=== PATIENT | female | born 1950 | race Caucasian/White ===

== ENCOUNTER → 2017-07-28 15:07 | Outpatient (CLI) | payer OTHER, SELFPAY ==
--- NOTE | 2017-07-28 15:10 | DI.RAD.S_ITS ---
PROCEDURE: XR CERVICAL SPINE 2V OR 3V INDICATIONS: neck pain TECHNIQUE: 3 view(s) of the cervical spine were acquired. COMPARISON: None. FINDINGS: Bones: No fractures or dislocations to the C7 level. The lateral masses of C1 appear intact on the odontoid view. No suspicious bony lesions. Diffuse facet arthropathy. Grade 1 anterolisthesis of C4 on C5. Moderate narrowing of the C5-C6 and C6-C7 disc space. There is diffuse endplate spurring. Soft tissues: No prevertebral soft tissue swelling. IMPRESSION: Grade 1 anterolisthesis of C4 on C5. Moderate C5-C6 and C6-C7 disc degeneration. Diffuse facet arthropathy. Dictated by: Jerman Carrillo M.D. on 07/28/2017 at 16:20 Approved by: Jerman Carrillo M.D. on 07/28/2017 at 16:25
== END ==
PROVIDERS: Family Provider Internal Medicine; PCP Internal Medicine; Visit Provider Internal Medicine
DX: M43.12 Spondylolisthesis, cervical region (principal); M53.0 Cervicocranial syndrome; M47.812 Spondylosis without myelopathy or radiculopathy, cervical region
CPT/HCPCS: 72040

== ENCOUNTER → 2019-01-20 07:06 | Outpatient (CLI) | payer OTHER, SELFPAY ==
[2019-01-20 08:30] LABS: Free T4, Direct Thyroxine 1.21 ng/dL (0.78-2.19)
[2019-01-20 08:44] LABS: Thyroid Stimulating Hormone 0.93 uIU/mL (0.47-4.68)
== END ==
PROVIDERS: PCP Internal Medicine; Visit Provider Internal Medicine
DX: E03.9 Hypothyroidism, unspecified (principal)
CPT/HCPCS: 36415; 84439; 84443

== ENCOUNTER → 2020-01-06 07:39 | Outpatient (CLI) | payer OTHER, SELFPAY ==
[2020-01-06 08:49] LABS: Alanine Aminotransferase 20 IU/L (<35); Albumin 3.7 g/dL (3.5-5.0); Albumin Globulin Ratio 1.5 (1.0-2.8); Alkaline Phosphatase 45 U/L (38-126); Aspartate Aminotransferase 25 IU/L (14-36); BUN Creatinine Ratio 24.1 (6-22); Bilirubin Total 0.5 mg/dL (0.2-1.3); Blood Urea Nitrogen 19 mg/dL (7-17); Calcium 8.9 mg/dL (8.4-10.2); Carbon Dioxide 29 mmol/L (22-32); Chloride 107 mmol/L (98-107); Cholesterol 188 mg/dL (140-199); Estimated Glomerular Filt Rate > 60.0 mL/min (>60); Globulin 2.5 g/dL (1.7-4.1); Glucose 106 mg/dL (80-110); HDL Cholesterol 104 mg/dL (40-60); HEMOLYSIS < 15 (0-50); LDL Cholesterol Calculated 72 mg/dL (<100); Potassium 4.3 mmol/L (3.4-5.1); Sodium 136 mmol/L (137-145); Total Protein 6.2 g/dL (6.3-8.2); Triglycerides 61 mg/dL (35-150)
[2020-01-06 09:09] LABS: Free T4, Direct Thyroxine 1.27 ng/dL (0.78-2.19)
[2020-01-06 09:23] LABS: Thyroid Stimulating Hormone 0.362 uIU/mL (0.47-4.68)
== END ==
PROVIDERS: PCP Internal Medicine; Referring Provider Internal Medicine; Visit Provider Internal Medicine
DX: E03.9 Hypothyroidism, unspecified (principal); Z13.220 Encounter for screening for lipoid disorders; Z13.6 Encounter for screening for cardiovascular disorders
CPT/HCPCS: 36415; 80053; 80061; 84439; 84443

== ENCOUNTER 2020-06-08 08:15 | Outpatient (RCR) | payer MEDICARE, SELFPAY ==
--- NOTE | 2020-03-13 13:42 | PT.OIE ---
Current Diagnoses Unilateral primary osteoarthritis, right knee (03/13/20) Encounter for other orthopedic aftercare (03/13/20) Past Medical History (Last Updated 01/23/20 @ 14:24 by Antonio Sim MD) Acquired hypothyroidism Cervical cancer (~1989) Gastroparesis Primary osteoarthritis involving multiple joints Past Surgical History (Last Reviewed 07/28/17 @ 15:03 by Antonio Sim MD) Status post dilation and curettage Status post knee surgery Visit Care Team Role Provider Type Antonio Sim MD Primary Care Provider Physician Specialty: Internal Medicine Address: [address] [place] [address], [address], [address] Email: [email or web address] [place] Gama MD Attending Provider Non-Staff Referring Provider Specialty: Orthopedic Surgery Address: [address] [place] [address], [id number] Email: Physical Therapy Initial Evaluation PT-OP-A Visit Information Start: 03/08/20 14:41 Freq: Status: Active Protocol: Document 03/13/20 09:00 MB (Rec: 03/13/20 09:12 MB [id number]) Out-Patient Physical Therapy Visit Information Visit Information Visit Type Initial Evaluation [facility] Visit Start Time 09:00 Visit Stop Time 09:45 Total Visit Minutes 45 Visit Number 1 Evaluation Information Evaluation Date 03/13/20 PT-OP-B Current Condition Start: 03/08/20 14:41 Freq: Status: Active Protocol: Document 03/13/20 09:00 MB (Rec: 03/13/20 09:12 MB [id number]) Current Condition History of Current Condition Onset Date 03/07/20 Current Complaints Right knee pain and weakness History of Current Condition Pt is s/p right TKR 03/07/20. Pt has a history of B knee OA, left thumb arthritis, neck arthritis and back arthritis and injections in neck and back. Pt sees chiroprator 2x/ month and massage therapist 1x /month for her neck and back. She has also had work done on her TMJ. She has a thyroid issue. Pt is very active, rides horses and does agility with her dog. Pt reports 7-8/10 pain in her right knee, lateral and posterior leg. The greatest pain is in her groin. She is wearing compression. Prior Treatments and Tests R TKR, back and neck injections, PT in the past. She had a good experience with PT in the past. Treatment Goals Patient/Caregiver Goals I want to get back to riding and pickle ball. PT-OP-C Subjective Start: 03/08/20 14:41 Freq: Status: Active Protocol: Document 03/13/20 09:00 MB (Rec: 03/13/20 09:12 MB [id number]) OP-PT Subjective Patient Comments Patient Comments See history of current condition Patient Questionnaires Lower Extremity Functional Scale LEFS Score 4 LEFS Impairment 80 to 99% Impaired (Score 1-16 ) PT-OP-G Mobility & Gait Start: 03/08/20 14:41 Freq: Status: Active Protocol: Document 03/13/20 09:00 MB (Rec: 03/13/20 13:40 MB [id number]) OP Mobility Evaluation Bed Mobility Rolling Pt uses left leg to lift her right leg onto the mat with left toes and forefoot hooked around the back of right distal leg Transfers Sit to Stand Right leg out in front and heavy UE use OP Gait Assessment Gait Gait Assistance Required: Independent Distance (Feet) 75 Able to Maintain Weight Bearing Status Yes During Gait Assistive Devices Assistive Device Front Wheeled Walker Orthotic/Prosthetic Devices or Brace: Yes Gait Deviations General Gait Pattern Antalgic,Decreased Stride Length,Decreased Feet Clearance,Flexed Trunk Factors Limiting Gait Function Factors Limiting Gait Function Decreased Activity Tolerance, Decreased Strength,Limited Range of Motion,Pain Comments Gait Comments Pt's walker is too short for her upon arrival and PT raises it 2 and she is able to gait train better upright. Initially, she has antalgic gait with little heel strike, push off on toes and right knee flexion and hip flexion and extension on the RLE. After gentle manual work after assessment, pt's step-length, upright and heel strike is better. PT-OP-K Range of Motion Start: 03/08/20 14:41 Freq: Status: Active Protocol: Document 03/13/20 09:00 MB (Rec: 03/13/20 13:40 MB [id number]) Knee Goniometric Range of Motion Knee Left Knee ROM WFL Yes Right Knee ROM WFL No Patient Position Long sitting Flexion Active (degrees) 70 Extension Active (degrees) 8 PT-OP-M Strength Start: 03/08/20 14:41 Freq: Status: Active Protocol: Document 03/13/20 09:00 MB (Rec: 03/13/20 13:40 MB [id number]) Hip Strength Hip Manual Muscle Testing Left Flexion (L2) 5 Normal Abduction 5 Normal Right Comments Deferred hip and knee MMT d/t pt reports of high pain Knee Strength Knee Manual Muscle Testing Left Flexion (S2) 5 Normal Extension (L3) 5 Normal Right Comments MMT deferred d/t high pain at rest and with limited AROM Ankle/Foot Strength Ankle and Foot Manual Muscle Testing Left Dorsiflexion (L4) 5 Normal Inversion 5 Normal Eversion (S1) 5 Normal Right Dorsiflexion (L4) 5 Normal Inversion 5 Normal Eversion (S1) 5 Normal Toe Strength Toe Manual Muscle Testing Left Great Toe Extension 5 Normal Right Great Toe Extension 5 Normal PT-OP-Q Treatments Start: 03/08/20 14:41 Freq: Status: Active Protocol: Document 03/13/20 09:00 MB (Rec: 03/13/20 13:40 MB [id number]) Therapeutic Exercises Supine Exercises SAQ Side right Comments Pt cannot perform today, asked her to hold off SLR Side right Comments Pt cannot perform today, asked her to hold off AP, HS, GS, hip abduction and adduction Side right Reps/Minutes 5 Comments Pt uses gait belt to help with HS, long sitting Manual Therapy Treatment Other Other Manual Treatments Pt with compression hose on: very light lavage over anterior and posterior knee and then prolonged positional release of posterior knee near the distal and proximal muscles attachments and fascial tension of the area is much better after treatment and pt's gait is improved Self-Care/Home Management Treatment Education Other Education Decrease duration and repetition of exercises, focus on exercise quality, focus on gait pattern and quality with walking with good pattern being the biggest exercise priority, use of ice, hold off on SLR, SAQ, sitting knee flexion and extension dangles at this time d/t high pain and perform tolerance and performance of these right now PT-OP-T Assessment and Plan Start: 03/08/20 14:41 Freq: Status: Active Protocol: Document 03/13/20 09:00 MB (Rec: 03/13/20 13:40 MB [id number]) Physical Therapy Assessment Rehab Potential Rehabilitation Potential Excellent Evaluation Complexity Number of Personal Factors/Comorbidities 1-2 Number of Body Systems Impaired 1-2 Clinical Presentation at Evaluation Stable Impairments Impairments Activity Tolerance,Balance, Edema,Functional Activities, Functional Mobility,Gait, Integument,Pain,Posture,ROM, Soft Tissue Mobility,Strength, Transfers Other Impairments Pt denies paresthesias and she wears light thigh high compression hose today. She has post-op bandage right knee , no visible ecchymosis through the hose and standard post-op edema Goals 6 Halfway Goal (LTG) Pt will present with improved right knee AROM equal to the left to improve sit to stands and gait pattern by 05/11/2020. LTG Duration 8 weeks 5 Halfway Goal (LTG) Pt will perform at least 20 reps of sit to stands without UE support in 30 sec to reflect improved functional transfers and strength by 05/11. LTG Duration 8 weeks 4 Halfway Goal (LTG) Pt will perform progressive HEP with I including range of motion, strengthening, flexibility, balance and gait exercises to improve overall functional strength by 2020. LTG Duration 8 weeks 3 Collection Supervisor Goal (LTG) Pt will ascend and descend 3 steps with receiprocal gait and no AD or rail to allow safe home entrance and exit by 05/11/2020. LTG Duration 8 weeks 2 Collection Supervisor Goal (LTG) Pt will gait train at least 1500 feet without AD in 6 minutes to improve ambulation for pasture and farm tasks by 05/11/2020. LTG Duration 8 weeks 1 Collection Supervisor Goal (LTG) Pt will present with an improved LEF score to reflect no more than 20% impairment to prepare to return to horse and dog ownership tasks by 01/2021. LTG Duration 8 weeks Assessment Summary Assessment Pt is a 70 y/o female presenting with reports of 7/ 10 right LE pain, edema, antalgic gait, decreased right knee ROM and LE strength s/p right TKA 03/07/2020. Overall, her edema looks standard for post-op TKR and PT does not note any ecchymosis through white compression hose. Pt states that she is able to don the compression hose herself. She uses her left leg to assist with getting right leg on and off the mat and cannot perform SAQ or SLR today. Given pt reports that the post -op exercises have been taking her 2 hours a day and are causing a lot of pain up to 7- 8/10, PT encourages her to back off duration and repetition number of exercises , opting for form, slowness and quality. The goal is to decrease pain with exercises in order to more readily improve functional range and gait. Pt verbalizes understanding of this goal. PT feels that pt will progress well with PT post-op. Once again, will focus on gait quality with RW, progressive functional exercises, use of recumbent stepper and stationary bike to gain range with AAROM and work on quad strength. Pt will also benefit from further manual work to improve edema and fascial mobility. Her posterior right knee is much better and her gait is better after gentle fascial release after eval today. A barrier to PT may be pt's frustration and possible tendency to overdo exercises. Will con't to encourage pt. Physical Therapy Plan Frequency and Duration Frequency of Treatment 2x/Week Duration of Treatment 8 weeks Plan of Care Start Date 03/13/20 Plan of Care End Date 05/11/20 Therapeutic Interventions Therapeutic Interventions Balance Training,Canalithic Repositioning,Gait Training, Home Exercise Program,Joint Mobilizations,Manual Therapy, Neuromuscular Re-education, Patient/Caregiver Education, Self-Care/Home Management,Soft Tissue Mobilization,Taping, Therapeutic Activities, Therapeutic Exercises Modalities Cold Pack/Ice Massage,Electric Stimulation,Hot Packs, Ultrasound Next Visit Focus/Plan Next Note Type Treatment Note Next Visit Plan Initiate recumbent stepper and manual work without compression hose donned
--- NOTE | 2020-03-15 09:44 | PT.OTN ---
Current Diagnoses Unilateral primary osteoarthritis, right knee (03/15/20) Encounter for other orthopedic aftercare (03/15/20) Physical Therapy Treatment Note PT-OP-A Visit Information Start: 03/08/20 14:41 Freq: Status: Active Protocol: Document 03/15/20 09:03 MB (Rec: 03/15/20 09:22 MB [id number]) Out-Patient Physical Therapy Visit Information Visit Information Visit Type Treatment Note Visit Start Time 09:03 Visit Stop Time 09:45 Total Visit Minutes 42 Visit Number 2 PT-OP-B Current Condition Start: 03/08/20 14:41 Freq: Status: Active Protocol: Document 03/13/20 09:00 MB (Rec: 03/13/20 09:12 MB [id number]) Current Condition History of Current Condition Onset Date 03/07/20 Current Complaints Right knee pain and weakness History of Current Condition Pt is s/p right TKR 03/07/20. Pt has a history of B knee OA, left thumb arthritis, neck arthritis and back arthritis and injections in neck and back. Pt sees chiroprator 2x/ month and massage therapist 1x /month for her neck and back. She has also had work done on her TMJ. She has a thyroid issue. Pt is very active, rides horses and does agility with her dog. Pt reports 7-8/10 pain in her right knee, lateral and posterior leg. The greatest pain is in her groin. She is wearing compression. Prior Treatments and Tests R TKR, back and neck injections, PT in the past. She had a good experience with PT in the past. Treatment Goals Patient/Caregiver Goals I want to get back to riding and pickle ball. PT-OP-C Subjective Start: 03/08/20 14:41 Freq: Status: Active Protocol: Document 03/15/20 09:03 MB (Rec: 03/15/20 09:22 MB [id number]) OP-PT Subjective Patient Comments Patient Comments I walked a quarter of a mile straight through yesterday. I backed off the exercise repetitions and did 3x/wk. Pt has decreased her opiods, reports improved walking and swelling. PT-OP-G Mobility & Gait Start: 03/08/20 14:41 Freq: Status: Active Protocol: Document 03/13/20 09:00 MB (Rec: 03/13/20 13:40 MB [id number]) OP Mobility Evaluation Bed Mobility Rolling Pt uses left leg to lift her right leg onto the mat with left toes and forefoot hooked around the back of right distal leg Transfers Sit to Stand Right leg out in front and heavy UE use OP Gait Assessment Gait Gait Assistance Required: Independent Distance (Feet) 75 Able to Maintain Weight Bearing Status Yes During Gait Assistive Devices Assistive Device Front Wheeled Walker Orthotic/Prosthetic Devices or Brace: Yes Gait Deviations General Gait Pattern Antalgic,Decreased Stride Length,Decreased Feet Clearance,Flexed Trunk Factors Limiting Gait Function Factors Limiting Gait Function Decreased Activity Tolerance, Decreased Strength,Limited Range of Motion,Pain Comments Gait Comments Pt's walker is too short for her upon arrival and PT raises it 2 and she is able to gait train better upright. Initially, she has antalgic gait with little heel strike, push off on toes and right knee flexion and hip flexion and extension on the RLE. After gentle manual work after assessment, pt's step-length, upright and heel strike is better. PT-OP-K Range of Motion Start: 03/08/20 14:41 Freq: Status: Active Protocol: Document 03/13/20 09:00 MB (Rec: 03/13/20 13:40 MB [id number]) Knee Goniometric Range of Motion Knee Left Knee ROM WFL Yes Right Knee ROM WFL No Patient Position Long sitting Flexion Active (degrees) 70 Extension Active (degrees) 8 PT-OP-M Strength Start: 03/08/20 14:41 Freq: Status: Active Protocol: Document 03/13/20 09:00 MB (Rec: 03/13/20 13:40 MB [id number]) Hip Strength Hip Manual Muscle Testing Left Flexion (L2) 5 Normal Abduction 5 Normal Right Comments Deferred hip and knee MMT d/t pt reports of high pain Knee Strength Knee Manual Muscle Testing Left Flexion (S2) 5 Normal Extension (L3) 5 Normal Right Comments MMT deferred d/t high pain at rest and with limited AROM Ankle/Foot Strength Ankle and Foot Manual Muscle Testing Left Dorsiflexion (L4) 5 Normal Inversion 5 Normal Eversion (S1) 5 Normal Right Dorsiflexion (L4) 5 Normal Inversion 5 Normal Eversion (S1) 5 Normal Toe Strength Toe Manual Muscle Testing Left Great Toe Extension 5 Normal Right Great Toe Extension 5 Normal PT-OP-Q Treatments Start: 03/08/20 14:41 Freq: Status: Active Protocol: Document 03/15/20 09:03 MB (Rec: 03/15/20 09:22 MB [id number]) Cardio Equipment Recumbent Elliptical (Biodex) Duration (Minutes) 10 Resistance 2 Seat Position 10 Manual Therapy Treatment Other Other Manual Treatments Compression hose doffed: lavage and STM posterior distal leg to behind knee and anterior thigh--gastroc, soleus and quad STM PT-OP-T Assessment and Plan Start: 03/08/20 14:41 Freq: Status: Active Protocol: Document 03/15/20 09:03 MB (Rec: 03/15/20 09:22 MB [id number]) Physical Therapy Assessment Rehab Potential Rehabilitation Potential Excellent Evaluation Complexity Number of Personal Factors/Comorbidities 1-2 Number of Body Systems Impaired 1-2 Clinical Presentation at Evaluation Stable Impairments Impairments Activity Tolerance,Balance, Edema,Functional Activities, Functional Mobility,Gait, Integument,Pain,Posture,ROM, Soft Tissue Mobility,Strength, Transfers Other Impairments Pt denies paresthesias and she wears light thigh high compression hose today. She has post-op bandage right knee , no visible ecchymosis through the hose and standard post-op edema Goals 6 Senior Care Goal (LTG) Pt will present with improved right knee AROM equal to the left to improve sit to stands and gait pattern by 05/11/2020. LTG Duration 8 weeks 5 Trade Sales Assistant Goal (LTG) Pt will perform at least 20 reps of sit to stands without UE support in 30 sec to reflect improved functional transfers and strength by 05/11. LTG Duration 8 weeks 4 Trade Sales Assistant Goal (LTG) Pt will perform progressive HEP with I including range of motion, strengthening, flexibility, balance and gait exercises to improve overall functional strength by 2020. LTG Duration 8 weeks 3 Trade Sales Assistant Goal (LTG) Pt will ascend and descend 3 steps with receiprocal gait and no AD or rail to allow safe home entrance and exit by 05/11/2020. LTG Duration 8 weeks 2 Trade Sales Assistant Goal (LTG) Pt will gait train at least 1500 feet without AD in 6 minutes to improve ambulation for pasture and farm tasks by 05/11/2020. LTG Duration 8 weeks 1 Trade Sales Assistant Goal (LTG) Pt will present with an improved LEF score to reflect no more than 20% impairment to prepare to return to horse and dog ownership tasks by 01/2021. LTG Duration 8 weeks Assessment Summary Assessment Initiated recumbent stepper today and manual work and pt responds well. Ongoing encouragement that she is right on track with post-op mobility, focus on function. Physical Therapy Plan Frequency and Duration Frequency of Treatment 2x/Week Duration of Treatment 8 weeks Plan of Care Start Date 03/13/20 Plan of Care End Date 05/11/20 Therapeutic Interventions Therapeutic Interventions Balance Training,Canalithic Repositioning,Gait Training, Home Exercise Program,Joint Mobilizations,Manual Therapy, Neuromuscular Re-education, Patient/Caregiver Education, Self-Care/Home Management,Soft Tissue Mobilization,Taping, Therapeutic Activities, Therapeutic Exercises Modalities Cold Pack/Ice Massage,Electric Stimulation,Hot Packs, Ultrasound Next Visit Focus/Plan Next Note Type Treatment Note Next Visit Plan Reassess quad function with SAQ and assisted SLR, progress exercises and manual work
--- NOTE | 2020-03-20 14:29 | PT.OTN ---
Current Diagnoses Unilateral primary osteoarthritis, right knee (03/20/20) Encounter for other orthopedic aftercare (03/20/20) Physical Therapy Treatment Note PT-OP-A Visit Information Start: 03/08/20 14:41 Freq: Status: Active Protocol: Document 03/20/20 09:00 MB (Rec: 03/20/20 09:43 MB [id number]) Out-Patient Physical Therapy Visit Information Visit Information Visit Type Treatment Note Visit Start Time 09:00 Visit Stop Time 09:45 Total Visit Minutes 45 Visit Number 3 PT-OP-B Current Condition Start: 03/08/20 14:41 Freq: Status: Active Protocol: Document 03/13/20 09:00 MB (Rec: 03/13/20 09:12 MB [id number]) Current Condition History of Current Condition Onset Date 03/07/20 Current Complaints Right knee pain and weakness History of Current Condition Pt is s/p right TKR 03/07/20. Pt has a history of B knee OA, left thumb arthritis, neck arthritis and back arthritis and injections in neck and back. Pt sees chiroprator 2x/ month and massage therapist 1x /month for her neck and back. She has also had work done on her TMJ. She has a thyroid issue. Pt is very active, rides horses and does agility with her dog. Pt reports 7-8/10 pain in her right knee, lateral and posterior leg. The greatest pain is in her groin. She is wearing compression. Prior Treatments and Tests R TKR, back and neck injections, PT in the past. She had a good experience with PT in the past. Treatment Goals Patient/Caregiver Goals I want to get back to riding and pickle ball. PT-OP-C Subjective Start: 03/08/20 14:41 Freq: Status: Active Protocol: Document 03/20/20 09:00 MB (Rec: 03/20/20 09:43 MB [id number]) OP-PT Subjective Patient Comments Patient Comments I brought my cane in for you to set up. I get my malgorzata out Thursday and I am excited about that. Pt states that she has been doing some mini- marching and foot taps with her walker at home. PT-OP-G Mobility & Gait Start: 03/08/20 14:41 Freq: Status: Active Protocol: Document 03/13/20 09:00 MB (Rec: 03/13/20 13:40 MB [id number]) OP Mobility Evaluation Bed Mobility Rolling Pt uses left leg to lift her right leg onto the mat with left toes and forefoot hooked around the back of right distal leg Transfers Sit to Stand Right leg out in front and heavy UE use OP Gait Assessment Gait Gait Assistance Required: Independent Distance (Feet) 75 Able to Maintain Weight Bearing Status Yes During Gait Assistive Devices Assistive Device Front Wheeled Walker Orthotic/Prosthetic Devices or Brace: Yes Gait Deviations General Gait Pattern Antalgic,Decreased Stride Length,Decreased Feet Clearance,Flexed Trunk Factors Limiting Gait Function Factors Limiting Gait Function Decreased Activity Tolerance, Decreased Strength,Limited Range of Motion,Pain Comments Gait Comments Pt's walker is too short for her upon arrival and PT raises it 2 and she is able to gait train better upright. Initially, she has antalgic gait with little heel strike, push off on toes and right knee flexion and hip flexion and extension on the RLE. After gentle manual work after assessment, pt's step-length, upright and heel strike is better. PT-OP-K Range of Motion Start: 03/08/20 14:41 Freq: Status: Active Protocol: Document 03/13/20 09:00 MB (Rec: 03/13/20 13:40 MB [id number]) Knee Goniometric Range of Motion Knee Left Knee ROM WFL Yes Right Knee ROM WFL No Patient Position Long sitting Flexion Active (degrees) 70 Extension Active (degrees) 8 PT-OP-M Strength Start: 03/08/20 14:41 Freq: Status: Active Protocol: Document 03/13/20 09:00 MB (Rec: 03/13/20 13:40 MB [id number]) Hip Strength Hip Manual Muscle Testing Left Flexion (L2) 5 Normal Abduction 5 Normal Right Comments Deferred hip and knee MMT d/t pt reports of high pain Knee Strength Knee Manual Muscle Testing Left Flexion (S2) 5 Normal Extension (L3) 5 Normal Right Comments MMT deferred d/t high pain at rest and with limited AROM Ankle/Foot Strength Ankle and Foot Manual Muscle Testing Left Dorsiflexion (L4) 5 Normal Inversion 5 Normal Eversion (S1) 5 Normal Right Dorsiflexion (L4) 5 Normal Inversion 5 Normal Eversion (S1) 5 Normal Toe Strength Toe Manual Muscle Testing Left Great Toe Extension 5 Normal Right Great Toe Extension 5 Normal PT-OP-Q Treatments Start: 03/08/20 14:41 Freq: Status: Active Protocol: Document 03/20/20 09:00 MB (Rec: 03/20/20 09:43 MB [id number]) Cardio Equipment Recumbent Elliptical (Biodex) Duration (Minutes) 10 Resistance 2 Seat Position 10 Therapeutic Exercises Supine Exercises AP, HS, GS, hip abduction and adduction Supine Exercise Name AP and HS Comments Multiple 10 reps throughout treatment Standing Exercises Mini april Comments Pt states she has been doing at home, has limited knee flexion Gait Training Gait Activity Gait with different AD Comments 75' with RW and improved knee flexion and heel strike, 30' with SPC in left hand and less knee flexion; further gait with RW and pt's gait is better Manual Therapy Treatment Other Other Manual Treatments STM posterior right knee and hamstring, pt occ assisting with HS and PT also assisting with flexion--there is a palpable lump proximal gastroc area and calf is not warm Self-Care/Home Management Treatment Education Other Education Ask PA-C at follow-up about: driving, 90 deg bend comment in her paperwork, lump behind knee, pain management at night and seeing her massage therapist, ask about further compression hose. Ed pt to con 't to work on gait with RW at this time given poorer gait pattern with SPC. PT-OP-T Assessment and Plan Start: 03/08/20 14:41 Freq: Status: Active Protocol: Document 03/20/20 09:00 MB (Rec: 03/20/20 09:43 MB [id number]) Physical Therapy Assessment Rehab Potential Rehabilitation Potential Excellent Evaluation Complexity Number of Personal Factors/Comorbidities 1-2 Number of Body Systems Impaired 1-2 Clinical Presentation at Evaluation Stable Impairments Impairments Activity Tolerance,Balance, Edema,Functional Activities, Functional Mobility,Gait, Integument,Pain,Posture,ROM, Soft Tissue Mobility,Strength, Transfers Other Impairments Pt denies paresthesias and she wears light thigh high compression hose today. She has post-op bandage right knee , no visible ecchymosis through the hose and standard post-op edema Goals 6 Detention Goal (LTG) Pt will present with improved right knee AROM equal to the left to improve sit to stands and gait pattern by 05/11/2020. LTG Duration 8 weeks 5 [employer] Goal (LTG) Pt will perform at least 20 reps of sit to stands without UE support in 30 sec to reflect improved functional transfers and strength by 05/11. LTG Duration 8 weeks 4 Detention Goal (LTG) Pt will perform progressive HEP with I including range of motion, strengthening, flexibility, balance and gait exercises to improve overall functional strength by 2020. LTG Duration 8 weeks 3 [employer] Goal (LTG) Pt will ascend and descend 3 steps with receiprocal gait and no AD or rail to allow safe home entrance and exit by 05/11/2020. 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 LTG Duration 8 weeks 1 [employer] Goal (LTG) Pt will present with an improved LEF score to reflect no more than 20% impairment to prepare to return to horse and dog ownership tasks by 01/2021. LTG Duration 8 weeks Assessment Summary Assessment Pt con't to verbalize concern that she is not where she needs to be. PT con't to provide encouragement to pt. She has first follow-up with PA this week and PT and pt review questions to ask. She presents with lump area proximal gastroc right knee today and she does con't with edema. She might benefit from more compressive compression in the future. Con't manual work and exercise progression, continuing to focus on form and quality. Physical Therapy Plan Frequency and Duration Frequency of Treatment 2x/Week Duration of Treatment 8 weeks Plan of Care Start Date 03/13/20 Plan of Care End Date 05/11/20 Therapeutic Interventions Therapeutic Interventions Balance Training,Canalithic Repositioning,Gait Training, Home Exercise Program,Joint Mobilizations,Manual Therapy, Neuromuscular Re-education, Patient/Caregiver Education, Self-Care/Home Management,Soft Tissue Mobilization,Taping, Therapeutic Activities, Therapeutic Exercises Modalities Cold Pack/Ice Massage,Electric Stimulation,Hot Packs, Ultrasound Next Visit Focus/Plan Next Note Type Treatment Note Next Visit Plan Reassess quad function with SAQ and assisted SLR, progress exercises and manual work
--- NOTE | 2020-03-22 09:46 | PT.OTN ---
Current Diagnoses Unilateral primary osteoarthritis, right knee (03/22/20) Encounter for other orthopedic aftercare (03/22/20) Physical Therapy Treatment Note PT-OP-A Visit Information Start: 03/08/20 14:41 Freq: Status: Active Protocol: Document 03/22/20 09:01 MB (Rec: 03/22/20 09:17 MB [id number]) Out-Patient Physical Therapy Visit Information Visit Information Visit Type Treatment Note Visit Start Time 09:01 Visit Stop Time 09:45 Total Visit Minutes 44 Visit Number 4 PT-OP-B Current Condition Start: 03/08/20 14:41 Freq: Status: Active Protocol: Document 03/13/20 09:00 MB (Rec: 03/13/20 09:12 MB [id number]) Current Condition History of Current Condition Onset Date 03/07/20 Current Complaints Right knee pain and weakness History of Current Condition Pt is s/p right TKR 03/07/20. Pt has a history of B knee OA, left thumb arthritis, neck arthritis and back arthritis and injections in neck and back. Pt sees chiroprator 2x/ month and massage therapist 1x /month for her neck and back. She has also had work done on her TMJ. She has a thyroid issue. Pt is very active, rides horses and does agility with her dog. Pt reports 7-8/10 pain in her right knee, lateral and posterior leg. The greatest pain is in her groin. She is wearing compression. Prior Treatments and Tests R TKR, back and neck injections, PT in the past. She had a good experience with PT in the past. Treatment Goals Patient/Caregiver Goals I want to get back to riding and pickle ball. PT-OP-C Subjective Start: 03/08/20 14:41 Freq: Status: Active Protocol: Document 03/22/20 09:01 MB (Rec: 03/22/20 09:17 MB [id number]) OP-PT Subjective Patient Comments Patient Comments I haven't been sore. Pt states that she did well after last PT treatment. She states that things are getting easier. PT-OP-G Mobility & Gait Start: 03/08/20 14:41 Freq: Status: Active Protocol: Document 03/13/20 09:00 MB (Rec: 03/13/20 13:40 MB [id number]) OP Mobility Evaluation Bed Mobility Rolling Pt uses left leg to lift her right leg onto the mat with left toes and forefoot hooked around the back of right distal leg Transfers Sit to Stand Right leg out in front and heavy UE use OP Gait Assessment Gait Gait Assistance Required: Independent Distance (Feet) 75 Able to Maintain Weight Bearing Status Yes During Gait Assistive Devices Assistive Device Front Wheeled Walker Orthotic/Prosthetic Devices or Brace: Yes Gait Deviations General Gait Pattern Antalgic,Decreased Stride Length,Decreased Feet Clearance,Flexed Trunk Factors Limiting Gait Function Factors Limiting Gait Function Decreased Activity Tolerance, Decreased Strength,Limited Range of Motion,Pain Comments Gait Comments Pt's walker is too short for her upon arrival and PT raises it 2 and she is able to gait train better upright. Initially, she has antalgic gait with little heel strike, push off on toes and right knee flexion and hip flexion and extension on the RLE. After gentle manual work after assessment, pt's step-length, upright and heel strike is better. PT-OP-K Range of Motion Start: 03/08/20 14:41 Freq: Status: Active Protocol: Document 03/13/20 09:00 MB (Rec: 03/13/20 13:40 MB [id number]) Knee Goniometric Range of Motion Knee Left Knee ROM WFL Yes Right Knee ROM WFL No Patient Position Long sitting Flexion Active (degrees) 70 Extension Active (degrees) 8 PT-OP-M Strength Start: 03/08/20 14:41 Freq: Status: Active Protocol: Document 03/13/20 09:00 MB (Rec: 03/13/20 13:40 MB [id number]) Hip Strength Hip Manual Muscle Testing Left Flexion (L2) 5 Normal Abduction 5 Normal Right Comments Deferred hip and knee MMT d/t pt reports of high pain Knee Strength Knee Manual Muscle Testing Left Flexion (S2) 5 Normal Extension (L3) 5 Normal Right Comments MMT deferred d/t high pain at rest and with limited AROM Ankle/Foot Strength Ankle and Foot Manual Muscle Testing Left Dorsiflexion (L4) 5 Normal Inversion 5 Normal Eversion (S1) 5 Normal Right Dorsiflexion (L4) 5 Normal Inversion 5 Normal Eversion (S1) 5 Normal Toe Strength Toe Manual Muscle Testing Left Great Toe Extension 5 Normal Right Great Toe Extension 5 Normal PT-OP-Q Treatments Start: 03/08/20 14:41 Freq: Status: Active Protocol: Document 03/22/20 09:01 MB (Rec: 03/22/20 09:17 MB [id number]) Cardio Equipment Recumbent Elliptical (Biodex) Duration (Minutes) 10 Resistance 2 Seat Position 8 Therapeutic Exercises Supine Exercises SLR Side right Comments 10 reps slowly with assist and added to HEP AP, HS, GS, hip abduction and adduction Supine Exercise Name AP and HS Comments Multiple 10 reps throughout treatment Manual Therapy Treatment Other Other Manual Treatments STM posterior right knee and hamstring, pt occ assisting with HS and PT also assisting with flexion. Assisted SLR right leg PT-OP-T Assessment and Plan Start: 03/08/20 14:41 Freq: Status: Active Protocol: Document 03/22/20 09:01 MB (Rec: 03/22/20 09:17 MB [id number]) Physical Therapy Assessment Rehab Potential Rehabilitation Potential Excellent Evaluation Complexity Number of Personal Factors/Comorbidities 1-2 Number of Body Systems Impaired 1-2 Clinical Presentation at Evaluation Stable Impairments Impairments Activity Tolerance,Balance, Edema,Functional Activities, Functional Mobility,Gait, Integument,Pain,Posture,ROM, Soft Tissue Mobility,Strength, Transfers Other Impairments Pt denies paresthesias and she wears light thigh high compression hose today. She has post-op bandage right knee , no visible ecchymosis through the hose and standard post-op edema Goals 6 [employer] Person Goal (LTG) Pt will present with improved right knee AROM equal to the left to improve sit to stands and gait pattern by 05/11/2020. LTG Duration 8 weeks 5 Shelter Goal (LTG) Pt will perform at least 20 reps of sit to stands without UE support in 30 sec to reflect improved functional transfers and strength by 05/11. LTG Duration 8 weeks 4 Counter [employer] Person Goal (LTG) Pt will perform progressive HEP with I including range of motion, strengthening, flexibility, balance and gait exercises to improve overall functional strength by 2020. LTG Duration 8 weeks 3 Shelter Goal (LTG) Pt will ascend and descend 3 steps with receiprocal gait and no AD or rail to allow safe home entrance and exit by 05/11/2020. 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 LTG Duration 8 weeks 1 Counter [employer] Person Goal (LTG) Pt will present with an improved LEF score to reflect no more than 20% impairment to prepare to return to horse and dog ownership tasks by 01/2021. LTG Duration 8 weeks Assessment Summary Assessment Worked on HS and SLR today with assist and pt to work on SLR at home and provided HEP handout. She returns to surgeon office tomorrow and will have sutures out. Con't manual work and exercise progression, continuing to focus on form and quality. Physical Therapy Plan Frequency and Duration Frequency of Treatment 2x/Week Duration of Treatment 8 weeks Plan of Care Start Date 03/13/20 Plan of Care End Date 05/11/20 Therapeutic Interventions Therapeutic Interventions Balance Training,Canalithic Repositioning,Gait Training, Home Exercise Program,Joint Mobilizations,Manual Therapy, Neuromuscular Re-education, Patient/Caregiver Education, Self-Care/Home Management,Soft Tissue Mobilization,Taping, Therapeutic Activities, Therapeutic Exercises Modalities Cold Pack/Ice Massage,Electric Stimulation,Hot Packs, Ultrasound Next Visit Focus/Plan Next Note Type Treatment Note Next Visit Plan Progress exercises and manual work
--- NOTE | 2020-03-22 09:46 | PT.OTN ---
Current Diagnoses Unilateral primary osteoarthritis, right knee (03/22/20) Encounter for other orthopedic aftercare (03/22/20) Physical Therapy Treatment Note PT-OP-A Visit Information Start: 03/08/20 14:41 Freq: Status: Active Protocol: Document 03/22/20 09:01 MB (Rec: 03/22/20 09:17 MB [id number]) Out-Patient Physical Therapy Visit Information Visit Information Visit Type Treatment Note Visit Start Time 09:01 Visit Stop Time 09:45 Total Visit Minutes 44 Visit Number 4 PT-OP-B Current Condition Start: 03/08/20 14:41 Freq: Status: Active Protocol: Document 03/13/20 09:00 MB (Rec: 03/13/20 09:12 MB [id number]) Current Condition History of Current Condition Onset Date 03/07/20 Current Complaints Right knee pain and weakness History of Current Condition Pt is s/p right TKR 03/07/20. Pt has a history of B knee OA, left thumb arthritis, neck arthritis and back arthritis and injections in neck and back. Pt sees chiroprator 2x/ month and massage therapist 1x /month for her neck and back. She has also had work done on her TMJ. She has a thyroid issue. Pt is very active, rides horses and does agility with her dog. Pt reports 7-8/10 pain in her right knee, lateral and posterior leg. The greatest pain is in her groin. She is wearing compression. Prior Treatments and Tests R TKR, back and neck injections, PT in the past. She had a good experience with PT in the past. Treatment Goals Patient/Caregiver Goals I want to get back to riding and pickle ball. PT-OP-C Subjective Start: 03/08/20 14:41 Freq: Status: Active Protocol: Document 03/22/20 09:01 MB (Rec: 03/22/20 09:17 MB [id number]) OP-PT Subjective Patient Comments Patient Comments I haven't been sore. Pt states that she did well after last PT treatment. She states that things are getting easier. PT-OP-G Mobility & Gait Start: 03/08/20 14:41 Freq: Status: Active Protocol: Document 03/13/20 09:00 MB (Rec: 03/13/20 13:40 MB [id number]) OP Mobility Evaluation Bed Mobility Rolling Pt uses left leg to lift her right leg onto the mat with left toes and forefoot hooked around the back of right distal leg Transfers Sit to Stand Right leg out in front and heavy UE use OP Gait Assessment Gait Gait Assistance Required: Independent Distance (Feet) 75 Able to Maintain Weight Bearing Status Yes During Gait Assistive Devices Assistive Device Front Wheeled Walker Orthotic/Prosthetic Devices or Brace: Yes Gait Deviations General Gait Pattern Antalgic,Decreased Stride Length,Decreased Feet Clearance,Flexed Trunk Factors Limiting Gait Function Factors Limiting Gait Function Decreased Activity Tolerance, Decreased Strength,Limited Range of Motion,Pain Comments Gait Comments Pt's walker is too short for her upon arrival and PT raises it 2 and she is able to gait train better upright. Initially, she has antalgic gait with little heel strike, push off on toes and right knee flexion and hip flexion and extension on the RLE. After gentle manual work after assessment, pt's step-length, upright and heel strike is better. PT-OP-K Range of Motion Start: 03/08/20 14:41 Freq: Status: Active Protocol: Document 03/13/20 09:00 MB (Rec: 03/13/20 13:40 MB [id number]) Knee Goniometric Range of Motion Knee Left Knee ROM WFL Yes Right Knee ROM WFL No Patient Position Long sitting Flexion Active (degrees) 70 Extension Active (degrees) 8 PT-OP-M Strength Start: 03/08/20 14:41 Freq: Status: Active Protocol: Document 03/13/20 09:00 MB (Rec: 03/13/20 13:40 MB [id number]) Hip Strength Hip Manual Muscle Testing Left Flexion (L2) 5 Normal Abduction 5 Normal Right Comments Deferred hip and knee MMT d/t pt reports of high pain Knee Strength Knee Manual Muscle Testing Left Flexion (S2) 5 Normal Extension (L3) 5 Normal Right Comments MMT deferred d/t high pain at rest and with limited AROM Ankle/Foot Strength Ankle and Foot Manual Muscle Testing Left Dorsiflexion (L4) 5 Normal Inversion 5 Normal Eversion (S1) 5 Normal Right Dorsiflexion (L4) 5 Normal Inversion 5 Normal Eversion (S1) 5 Normal Toe Strength Toe Manual Muscle Testing Left Great Toe Extension 5 Normal Right Great Toe Extension 5 Normal PT-OP-Q Treatments Start: 03/08/20 14:41 Freq: Status: Active Protocol: Document 03/22/20 09:01 MB (Rec: 03/22/20 09:17 MB [id number]) Cardio Equipment Recumbent Elliptical (Biodex) Duration (Minutes) 10 Resistance 2 Seat Position 8 Therapeutic Exercises Supine Exercises SLR Side right Comments 10 reps slowly with assist and added to HEP AP, HS, GS, hip abduction and adduction Supine Exercise Name AP and HS Comments Multiple 10 reps throughout treatment Manual Therapy Treatment Other Other Manual Treatments STM posterior right knee and hamstring, pt occ assisting with HS and PT also assisting with flexion. Assisted SLR right leg PT-OP-T Assessment and Plan Start: 03/08/20 14:41 Freq: Status: Active Protocol: Document 03/22/20 09:01 MB (Rec: 03/22/20 09:17 MB [id number]) Physical Therapy Assessment Rehab Potential Rehabilitation Potential Excellent Evaluation Complexity Number of Personal Factors/Comorbidities 1-2 Number of Body Systems Impaired 1-2 Clinical Presentation at Evaluation Stable Impairments Impairments Activity Tolerance,Balance, Edema,Functional Activities, Functional Mobility,Gait, Integument,Pain,Posture,ROM, Soft Tissue Mobility,Strength, Transfers Other Impairments Pt denies paresthesias and she wears light thigh high compression hose today. She has post-op bandage right knee , no visible ecchymosis through the hose and standard post-op edema Goals 6 [employer] Goal (LTG) Pt will present with improved right knee AROM equal to the left to improve sit to stands and gait pattern by 05/11/2020. LTG Duration 8 weeks 5 Penitentiary Goal (LTG) Pt will perform at least 20 reps of sit to stands without UE support in 30 sec to reflect improved functional transfers and strength by 05/11. LTG Duration 8 weeks 4 [employer] Goal (LTG) Pt will perform progressive HEP with I including range of motion, strengthening, flexibility, balance and gait exercises to improve overall functional strength by 2020. LTG Duration 8 weeks 3 Penitentiary Goal (LTG) Pt will ascend and descend 3 steps with receiprocal gait and no AD or rail to allow safe home entrance and exit by 05/11/2020. 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 LTG Duration 8 weeks 1 [employer] Goal (LTG) Pt will present with an improved LEF score to reflect no more than 20% impairment to prepare to return to horse and dog ownership tasks by 01/2021. LTG Duration 8 weeks Assessment Summary Assessment Worked on HS and SLR today with assist and pt to work on SLR at home and provided HEP handout. She returns to surgeon office tomorrow and will have sutures out. Con't manual work and exercise progression, continuing to focus on form and quality. Physical Therapy Plan Frequency and Duration Frequency of Treatment 2x/Week Duration of Treatment 8 weeks Plan of Care Start Date 03/13/20 Plan of Care End Date 05/11/20 Therapeutic Interventions Therapeutic Interventions Balance Training,Canalithic Repositioning,Gait Training, Home Exercise Program,Joint Mobilizations,Manual Therapy, Neuromuscular Re-education, Patient/Caregiver Education, Self-Care/Home Management,Soft Tissue Mobilization,Taping, Therapeutic Activities, Therapeutic Exercises Modalities Cold Pack/Ice Massage,Electric Stimulation,Hot Packs, Ultrasound Next Visit Focus/Plan Next Note Type Treatment Note Next Visit Plan Progress exercises and manual work
--- NOTE | 2020-03-26 17:32 | PT.OTN ---
Current Diagnoses Unilateral primary osteoarthritis, right knee (03/26/20) Encounter for other orthopedic aftercare (03/26/20) Physical Therapy Treatment Note PT-OP-A Visit Information Start: 03/08/20 14:41 Freq: Status: Active Protocol: Document 03/26/20 13:29 [facility] (Rec: 03/26/20 17:32 [facility] [id number]) Out-Patient Physical Therapy Visit Information Visit Information Visit Type Treatment Note Visit Start Time 14:25 Visit Stop Time 15:10 Total Visit Minutes 45 Visit Number 5 Number of WELFARE MANAGER Visits 0 PT-OP-B Current Condition Start: 03/08/20 14:41 Freq: Status: Active Protocol: Document 03/13/20 09:00 MB (Rec: 03/13/20 09:12 MB [id number]) Current Condition History of Current Condition Onset Date 03/07/20 Current Complaints Right knee pain and weakness History of Current Condition Pt is s/p right TKR 03/07/20. Pt has a history of B knee OA, left thumb arthritis, neck arthritis and back arthritis and injections in neck and back. Pt sees chiroprator 2x/ month and massage therapist 1x /month for her neck and back. She has also had work done on her TMJ. She has a thyroid issue. Pt is very active, rides horses and does agility with her dog. Pt reports 7-8/10 pain in her right knee, lateral and posterior leg. The greatest pain is in her groin. She is wearing compression. Prior Treatments and Tests R TKR, back and neck injections, PT in the past. She had a good experience with PT in the past. Treatment Goals Patient/Caregiver Goals I want to get back to riding and pickle ball. PT-OP-C Subjective Start: 03/08/20 14:41 Freq: Status: Active Protocol: Document 03/26/20 13:29 [facility] (Rec: 03/26/20 17:32 [facility] [id number]) OP-PT Subjective Patient Comments Patient Comments Pt reports she had a bad night last night d/t MD scaring her and she kept her knee moving all day. She is taking oxy only w/PT sessions. Wound is looking good. Pt notes adductors feel like if she bends her knee further, it will rip. Pt reports ices and elevates leg all the time. PT-OP-G Mobility & Gait Start: 03/08/20 14:41 Freq: Status: Active Protocol: Document 03/13/20 09:00 MB (Rec: 03/13/20 13:40 MB [id number]) OP Mobility Evaluation Bed Mobility Rolling Pt uses left leg to lift her right leg onto the mat with left toes and forefoot hooked around the back of right distal leg Transfers Sit to Stand Right leg out in front and heavy UE use OP Gait Assessment Gait Gait Assistance Required: Independent Distance (Feet) 75 Able to Maintain Weight Bearing Status Yes During Gait Assistive Devices Assistive Device Front Wheeled Walker Orthotic/Prosthetic Devices or Brace: Yes Gait Deviations General Gait Pattern Antalgic,Decreased Stride Length,Decreased Feet Clearance,Flexed Trunk Factors Limiting Gait Function Factors Limiting Gait Function Decreased Activity Tolerance, Decreased Strength,Limited Range of Motion,Pain Comments Gait Comments Pt's walker is too short for her upon arrival and PT raises it 2 and she is able to gait train better upright. Initially, she has antalgic gait with little heel strike, push off on toes and right knee flexion and hip flexion and extension on the RLE. After gentle manual work after assessment, pt's step-length, upright and heel strike is better. PT-OP-K Range of Motion Start: 03/08/20 14:41 Freq: Status: Active Protocol: Document 03/13/20 09:00 MB (Rec: 03/13/20 13:40 MB [id number]) Knee Goniometric Range of Motion Knee Left Knee ROM WFL Yes Right Knee ROM WFL No Patient Position Long sitting Flexion Active (degrees) 70 Extension Active (degrees) 8 PT-OP-M Strength Start: 03/08/20 14:41 Freq: Status: Active Protocol: Document 03/13/20 09:00 MB (Rec: 03/13/20 13:40 MB [id number]) Hip Strength Hip Manual Muscle Testing Left Flexion (L2) 5 Normal Abduction 5 Normal Right Comments Deferred hip and knee MMT d/t pt reports of high pain Knee Strength Knee Manual Muscle Testing Left Flexion (S2) 5 Normal Extension (L3) 5 Normal Right Comments MMT deferred d/t high pain at rest and with limited AROM Ankle/Foot Strength Ankle and Foot Manual Muscle Testing Left Dorsiflexion (L4) 5 Normal Inversion 5 Normal Eversion (S1) 5 Normal Right Dorsiflexion (L4) 5 Normal Inversion 5 Normal Eversion (S1) 5 Normal Toe Strength Toe Manual Muscle Testing Left Great Toe Extension 5 Normal Right Great Toe Extension 5 Normal PT-OP-Q Treatments Start: 03/08/20 14:41 Freq: Status: Active Protocol: Document 03/26/20 13:29 [facility] (Rec: 03/26/20 17:32 [facility] [id number]) Cardio Equipment Recumbent Elliptical ([employer]) Duration (Minutes) 10 Resistance 2 Seat Position 8 Therapeutic Exercises Supine Exercises SAQ Side right Reps/Minutes 10 Sitting Exercises ext Sitting Exercise Name passive ext w/pillow under heel Side right Reps/Minutes 30 sec quad set Sitting Exercise Name long sit Side right Reps/Minutes 5 sec x8 Comments less pain in this positon vs supine flex Sitting Exercise Name slide on wood board Side right Reps/Minutes 5 sec x4 Standing Exercises heel raises Side bilateral Equipment Used at int Reps/Minutes 20 sit to stand Standing Exercise Name knee comfortably bent under her Side bilateral Reps/Minutes 5 Comments plint Manual Therapy Treatment Soft Tissue Mobilization HS/calf Mobilization Type Rolling Intensity/Depth Moderate Comments w/ APs in long sit and in HS stretched position Joint Mobilizations Patellofemoral Joint R Direction med, sup, inf Grade III Self-Care/Home Management Treatment Education Other Education discussed gradual inc in exercises at home and doing them in more comfortable positions (seated vs supine) PT-OP-T Assessment and Plan Start: 03/08/20 14:41 Freq: Status: Active Protocol: Document 03/26/20 13:29 [facility] (Rec: 03/26/20 17:32 [facility] [id number]) Physical Therapy Assessment Goals 6 Falsework Builder Goal (LTG) Pt will present with improved right knee AROM equal to the left to improve sit to stands and gait pattern by 05/11/2020. LTG Duration 8 weeks 5 Falsework Builder Goal (LTG) Pt will perform at least 20 reps of sit to stands without UE support in 30 sec to reflect improved functional transfers and strength by 05/11. LTG Duration 8 weeks 4 Falsework Builder Goal (LTG) Pt will perform progressive HEP with I including range of motion, strengthening, flexibility, balance and gait exercises to improve overall functional strength by 2020. LTG Duration 8 weeks 3 Falsework Builder Goal (LTG) Pt will ascend and descend 3 steps with receiprocal gait and no AD or rail to allow safe home entrance and exit by 05/11/2020. 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 LTG Duration 8 weeks 1 Half-Way Goal (LTG) Pt will present with an improved LEF score to reflect no more than 20% impairment to prepare to return to horse and dog ownership tasks by 01/2021. LTG Duration 8 weeks Assessment Summary Assessment Pt tolerated HS stretch position w/PT holding leg w/ STM. She was able to try some of the exercises from MD given exercises today with no inc pain after completing exercises. She does have pain duirng exercises but is does not stay painful. Physical Therapy Plan Frequency and Duration Frequency of Treatment 2x/Week Duration of Treatment 8 weeks Plan of Care Start Date 03/13/20 Plan of Care End Date 05/11/20 Next Visit Focus/Plan Next Note Type Treatment Note Next Visit Plan Progress exercises and manual work
--- NOTE | 2020-03-27 07:21 | PT-OP ANOTE ---
Pt emails PT to communicate that CHARLESAmina is concerned about her swelling and limited ROM and has asked pt to come back in in two weeks to consider closed manipulation. Pt asks about compression (more compressive compression hose). She asks to increase frequency to 3x/wk. PT communicates increased thigh high compression no greater than 20 mmHg and that scheduling 3x/wk is fine. Pt to see another PT in this clinic for an extra treatment this week and this therapist will update plan when next treating pt to increase frequency. Will con't to focus on ROM.
--- NOTE | 2020-03-27 09:45 | PT.OTN ---
Current Diagnoses Unilateral primary osteoarthritis, right knee (03/27/20) Encounter for other orthopedic aftercare (03/27/20) Physical Therapy Treatment Note PT-OP-A Visit Information Start: 03/08/20 14:41 Freq: Status: Active Protocol: Document 03/27/20 09:02 MB (Rec: 03/27/20 09:27 MB [id number]) Out-Patient Physical Therapy Visit Information Visit Information Visit Type Treatment Note Visit Note [facility] Medicare Advantage, unlimited Visit Start Time 09:02 Visit Stop Time 09:45 Total Visit Minutes 43 Visit Number 6 PT-OP-B Current Condition Start: 03/08/20 14:41 Freq: Status: Active Protocol: Document 03/13/20 09:00 MB (Rec: 03/13/20 09:12 MB [id number]) Current Condition History of Current Condition Onset Date 03/07/20 Current Complaints Right knee pain and weakness History of Current Condition Pt is s/p right TKR 03/07/20. Pt has a history of B knee OA, left thumb arthritis, neck arthritis and back arthritis and injections in neck and back. Pt sees chiroprator 2x/ month and massage therapist 1x /month for her neck and back. She has also had work done on her TMJ. She has a thyroid issue. Pt is very active, rides horses and does agility with her dog. Pt reports 7-8/10 pain in her right knee, lateral and posterior leg. The greatest pain is in her groin. She is wearing compression. Prior Treatments and Tests R TKR, back and neck injections, PT in the past. She had a good experience with PT in the past. Treatment Goals Patient/Caregiver Goals I want to get back to riding and pickle ball. PT-OP-C Subjective Start: 03/08/20 14:41 Freq: Status: Active Protocol: Document 03/27/20 09:02 MB (Rec: 03/27/20 09:27 MB [id number]) OP-PT Subjective Patient Comments Patient Comments I felt a little better last night and then I was worried a little more this morning. PT-OP-G Mobility & Gait Start: 03/08/20 14:41 Freq: Status: Active Protocol: Document 03/13/20 09:00 MB (Rec: 03/13/20 13:40 MB [id number]) OP Mobility Evaluation Bed Mobility Rolling Pt uses left leg to lift her right leg onto the mat with left toes and forefoot hooked around the back of right distal leg Transfers Sit to Stand Right leg out in front and heavy UE use OP Gait Assessment Gait Gait Assistance Required: Independent Distance (Feet) 75 Able to Maintain Weight Bearing Status Yes During Gait Assistive Devices Assistive Device Front Wheeled Walker Orthotic/Prosthetic Devices or Brace: Yes Gait Deviations General Gait Pattern Antalgic,Decreased Stride Length,Decreased Feet Clearance,Flexed Trunk Factors Limiting Gait Function Factors Limiting Gait Function Decreased Activity Tolerance, Decreased Strength,Limited Range of Motion,Pain Comments Gait Comments Pt's walker is too short for her upon arrival and PT raises it 2 and she is able to gait train better upright. Initially, she has antalgic gait with little heel strike, push off on toes and right knee flexion and hip flexion and extension on the RLE. After gentle manual work after assessment, pt's step-length, upright and heel strike is better. PT-OP-K Range of Motion Start: 03/08/20 14:41 Freq: Status: Active Protocol: Document 03/13/20 09:00 MB (Rec: 03/13/20 13:40 MB [id number]) Knee Goniometric Range of Motion Knee Left Knee ROM WFL Yes Right Knee ROM WFL No Patient Position Long sitting Flexion Active (degrees) 70 Extension Active (degrees) 8 PT-OP-M Strength Start: 03/08/20 14:41 Freq: Status: Active Protocol: Document 03/13/20 09:00 MB (Rec: 03/13/20 13:40 MB [id number]) Hip Strength Hip Manual Muscle Testing Left Flexion (L2) 5 Normal Abduction 5 Normal Right Comments Deferred hip and knee MMT d/t pt reports of high pain Knee Strength Knee Manual Muscle Testing Left Flexion (S2) 5 Normal Extension (L3) 5 Normal Right Comments MMT deferred d/t high pain at rest and with limited AROM Ankle/Foot Strength Ankle and Foot Manual Muscle Testing Left Dorsiflexion (L4) 5 Normal Inversion 5 Normal Eversion (S1) 5 Normal Right Dorsiflexion (L4) 5 Normal Inversion 5 Normal Eversion (S1) 5 Normal Toe Strength Toe Manual Muscle Testing Left Great Toe Extension 5 Normal Right Great Toe Extension 5 Normal PT-OP-Q Treatments Start: 03/08/20 14:41 Freq: Status: Active Protocol: Document 03/27/20 09:02 MB (Rec: 03/27/20 09:27 MB [id number]) Cardio Equipment Recumbent Elliptical ([employer]) Duration (Minutes) 10 Resistance 4 Seat Position 8 Therapeutic Exercises Standing Exercises Knee flexion on step Side left Comments 4 sets, 20 sec hold, practice ascend and descend with rails x3 with exercis heel raises Side bilateral Comments 20 reps Gait Training Gait Activity Gait without AD Comments 75'x1, 50'x3, 100'x1 with cane and then without AD, decreased heel strike and knee flexion right with gait, more noticeable without cane Manual Therapy Treatment Other Other Manual Treatments STM posterior right knee and hamstring, pt occ assisting with HS and PT also assisting with flexion. Assisted SLR right leg, pt with dressing doffed and steri strips only and so lavage over skin, keeping away from scar at this time PT-OP-T Assessment and Plan Start: 03/08/20 14:41 Freq: Status: Active Protocol: Document 03/27/20 09:02 MB (Rec: 03/27/20 09:27 MB [id number]) Physical Therapy Assessment Rehab Potential Rehabilitation Potential Good Evaluation Complexity Number of Personal Factors/Comorbidities 1-2 Number of Body Systems Impaired 1-2 Clinical Presentation at Evaluation Stable Impairments Impairments Activity Tolerance,Balance, Edema,Functional Activities, Functional Mobility,Gait, Integument,Pain,Posture,ROM, Soft Tissue Mobility,Strength, Transfers Other Impairments Pt denies paresthesias and she wears light thigh high compression hose today. She has post-op bandage right knee , no visible ecchymosis through the hose and standard post-op edema Goals 6 Assisted Goal (LTG) Pt will present with improved right knee AROM equal to the left to improve sit to stands and gait pattern by 05/11/2020. LTG Duration 8 weeks 5 Learning Technologist Goal (LTG) Pt will perform at least 20 reps of sit to stands without UE support in 30 sec to reflect improved functional transfers and strength by 05/11. LTG Duration 8 weeks 4 Assisted Goal (LTG) Pt will perform progressive HEP with I including range of motion, strengthening, flexibility, balance and gait exercises to improve overall functional strength by 2020. 03/27/20: For HEP: Pt is performing SLR, HS sitting, QS , AP, heel and toe raises, passive extension, SAQ LTG Duration 8 weeks 3 Assisted Goal (LTG) Pt will ascend and descend 3 steps with receiprocal gait and no AD or rail to allow safe home entrance and exit by 05/11/2020. 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 LTG Duration 8 weeks 1 Learning Technologist Goal (LTG) Pt will present with an improved LEF score to reflect no more than 20% impairment to prepare to return to horse and dog ownership tasks by 01/2021. LTG Duration 8 weeks Assessment Summary Assessment Pt is gait training without cane today and she presents with decreased right knee flexion and heel strike but gait is improved. AAROM knee flexion stretch over step improves from 78 deg flexion to 80 deg flexion today. Will increase PT frequency to 3x/wk . PT feels that swelling and discomfort has limited her range. She is improving with function, gait and range. Physical Therapy Plan Frequency and Duration Frequency of Treatment 3x/Week Duration of Treatment 8 weeks Plan of Care Start Date 03/13/20 Plan of Care End Date 05/11/20 Therapeutic Interventions Therapeutic Interventions Balance Training,Canalithic Repositioning,Gait Training, Home Exercise Program,Joint Mobilizations,Manual Therapy, Neuromuscular Re-education, Patient/Caregiver Education, Self-Care/Home Management,Soft Tissue Mobilization,Taping, Therapeutic Activities, Therapeutic Exercises Modalities Cold Pack/Ice Massage,Electric Stimulation,Hot Packs, Ultrasound Next Visit Focus/Plan Next Note Type Treatment Note Next Visit Plan Progress range exercises including hamstring stretch with AP and Alexander stretch and manual work
--- NOTE | 2020-03-27 09:45 | PT.OPPOC ---
Physical, Occupational & Speech Therapy At [facility] Current Diagnoses Unilateral primary osteoarthritis, right knee (03/27/20) Encounter for other orthopedic aftercare (03/27/20) Visit Care Team Role Provider Type Antonio Sim MD Primary Care Provider Physician Specialty: Internal Medicine Address: [address] [place] [address], [facility] [address], [address] Email: [email or web address] Gama MD Attending Provider Non-Staff Referring Provider Specialty: Orthopedic Surgery Address: [address] [place] [address], [id number] Email: Plan Of Care PT-OP-T Assessment and Plan Start: 03/08/20 14:41 Freq: Status: Active Protocol: Document 03/27/20 09:02 MB (Rec: 03/27/20 09:27 MB [id number]) Physical Therapy Assessment Rehab Potential Rehabilitation Potential Good Evaluation Complexity Number of Personal Factors/Comorbidities 1-2 Number of Body Systems Impaired 1-2 Clinical Presentation at Evaluation Stable Impairments Impairments Activity Tolerance,Balance, Edema,Functional Activities, Functional Mobility,Gait, Integument,Pain,Posture,ROM, Soft Tissue Mobility,Strength, Transfers Other Impairments Pt denies paresthesias and she wears light thigh high compression hose today. She has post-op bandage right knee , no visible ecchymosis through the hose and standard post-op edema Goals 6 Chcf Goal (LTG) Pt will present with improved right knee AROM equal to the left to improve sit to stands and gait pattern by 05/11/2020. LTG Duration 8 weeks 5 Dog Barber Goal (LTG) Pt will perform at least 20 reps of sit to stands without UE support in 30 sec to reflect improved functional transfers and strength by 05/11. LTG Duration 8 weeks 4 Dog Barber Goal (LTG) Pt will perform progressive HEP with I including range of motion, strengthening, flexibility, balance and gait exercises to improve overall functional strength by 2020. 03/27/20: For HEP: Pt is performing SLR, HS sitting, QS , AP, heel and toe raises, passive extension, SAQ LTG Duration 8 weeks 3 Chcf Goal (LTG) Pt will ascend and descend 3 steps with receiprocal gait and no AD or rail to allow safe home entrance and exit by 05/11/2020. 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 LTG Duration 8 weeks 1 Chcf Goal (LTG) Pt will present with an improved LEF score to reflect no more than 20% impairment to prepare to return to horse and dog ownership tasks by 01/2021. LTG Duration 8 weeks Assessment Summary Assessment Pt is gait training without cane today and she presents with decreased right knee flexion and heel strike but gait is improved. AAROM knee flexion stretch over step improves from 78 deg flexion to 80 deg flexion today. Will increase PT frequency to 3x/wk . PT feels that swelling and discomfort has limited her range. She is improving with function, gait and range. Physical Therapy Plan Frequency and Duration Frequency of Treatment 3x/Week Duration of Treatment 8 weeks Plan of Care Start Date 03/13/20 Plan of Care End Date 05/11/20 Therapeutic Interventions Therapeutic Interventions Balance Training,Canalithic Repositioning,Gait Training, Home Exercise Program,Joint Mobilizations,Manual Therapy, Neuromuscular Re-education, Patient/Caregiver Education, Self-Care/Home Management,Soft Tissue Mobilization,Taping, Therapeutic Activities, Therapeutic Exercises Modalities Cold Pack/Ice Massage,Electric Stimulation,Hot Packs, Ultrasound Next Visit Focus/Plan Next Note Type Treatment Note Next Visit Plan Progress range exercises including hamstring stretch with AP and Alexander stretch and manual work Plan of Care Dates Plan of Care Start Date 03/13/20 Plan of Care End Date 05/11/20 Electronically Signed by: Mariela Tavarez, PT 03/27/20 [id number] Please Sign and Return: I have reviewed this Plan of Care and certify that the skilled therapy services above are required to meet the patient?s needs. Physician Signature Date Printed Name and Credentials Clinical Instructor Signature Printed Name and Credentials
--- NOTE | 2020-03-29 09:51 | PT.OTN ---
Current Diagnoses Unilateral primary osteoarthritis, right knee (03/29/20) Encounter for other orthopedic aftercare (03/29/20) Physical Therapy Treatment Note PT-OP-A Visit Information Start: 03/08/20 14:41 Freq: Status: Active Protocol: Document 03/29/20 09:01 MB (Rec: 03/29/20 09:37 MB [id number]) Out-Patient Physical Therapy Visit Information Visit Information Visit Type Treatment Note Visit Note [facility] Medicare Advantage, unlimited Visit Start Time 09:01 Visit Stop Time 09:45 Total Visit Minutes 44 Visit Number 7 PT-OP-B Current Condition Start: 03/08/20 14:41 Freq: Status: Active Protocol: Document 03/13/20 09:00 MB (Rec: 03/13/20 09:12 MB [id number]) Current Condition History of Current Condition Onset Date 03/07/20 Current Complaints Right knee pain and weakness History of Current Condition Pt is s/p right TKR 03/07/20. Pt has a history of B knee OA, left thumb arthritis, neck arthritis and back arthritis and injections in neck and back. Pt sees chiroprator 2x/ month and massage therapist 1x /month for her neck and back. She has also had work done on her TMJ. She has a thyroid issue. Pt is very active, rides horses and does agility with her dog. Pt reports 7-8/10 pain in her right knee, lateral and posterior leg. The greatest pain is in her groin. She is wearing compression. Prior Treatments and Tests R TKR, back and neck injections, PT in the past. She had a good experience with PT in the past. Treatment Goals Patient/Caregiver Goals I want to get back to riding and pickle ball. PT-OP-C Subjective Start: 03/08/20 14:41 Freq: Status: Active Protocol: Document 03/29/20 09:01 MB (Rec: 03/29/20 09:37 MB [id number]) OP-PT Subjective Patient Comments Patient Comments Pt got 15 mmHg compression hose. They do not have feet. They are hard to put on. She went to her chiropractor and his massage therapist yesterday. He use a small device to gently manipulate the outside of his knee. She states that it hurt really badly. He was able to flex the knee to 90 deg on her back and she felt good after treatment. She had to tell the massage therapist to stop with treatment d/t pain and then she had a lot of pain later in the day. She felt good and slept well after last PT treatment. PT-OP-G Mobility & Gait Start: 03/08/20 14:41 Freq: Status: Active Protocol: Document 03/13/20 09:00 MB (Rec: 03/13/20 13:40 MB [id number]) OP Mobility Evaluation Bed Mobility Rolling Pt uses left leg to lift her right leg onto the mat with left toes and forefoot hooked around the back of right distal leg Transfers Sit to Stand Right leg out in front and heavy UE use OP Gait Assessment Gait Gait Assistance Required: Independent Distance (Feet) 75 Able to Maintain Weight Bearing Status Yes During Gait Assistive Devices Assistive Device Front Wheeled Walker Orthotic/Prosthetic Devices or Brace: Yes Gait Deviations General Gait Pattern Antalgic,Decreased Stride Length,Decreased Feet Clearance,Flexed Trunk Factors Limiting Gait Function Factors Limiting Gait Function Decreased Activity Tolerance, Decreased Strength,Limited Range of Motion,Pain Comments Gait Comments Pt's walker is too short for her upon arrival and PT raises it 2 and she is able to gait train better upright. Initially, she has antalgic gait with little heel strike, push off on toes and right knee flexion and hip flexion and extension on the RLE. After gentle manual work after assessment, pt's step-length, upright and heel strike is better. PT-OP-K Range of Motion Start: 03/08/20 14:41 Freq: Status: Active Protocol: Document 03/13/20 09:00 MB (Rec: 03/13/20 13:40 MB [id number]) Knee Goniometric Range of Motion Knee Left Knee ROM WFL Yes Right Knee ROM WFL No Patient Position Long sitting Flexion Active (degrees) 70 Extension Active (degrees) 8 PT-OP-M Strength Start: 03/08/20 14:41 Freq: Status: Active Protocol: Document 03/13/20 09:00 MB (Rec: 03/13/20 13:40 MB [id number]) Hip Strength Hip Manual Muscle Testing Left Flexion (L2) 5 Normal Abduction 5 Normal Right Comments Deferred hip and knee MMT d/t pt reports of high pain Knee Strength Knee Manual Muscle Testing Left Flexion (S2) 5 Normal Extension (L3) 5 Normal Right Comments MMT deferred d/t high pain at rest and with limited AROM Ankle/Foot Strength Ankle and Foot Manual Muscle Testing Left Dorsiflexion (L4) 5 Normal Inversion 5 Normal Eversion (S1) 5 Normal Right Dorsiflexion (L4) 5 Normal Inversion 5 Normal Eversion (S1) 5 Normal Toe Strength Toe Manual Muscle Testing Left Great Toe Extension 5 Normal Right Great Toe Extension 5 Normal PT-OP-Q Treatments Start: 03/08/20 14:41 Freq: Status: Active Protocol: Document 03/29/20 09:01 MB (Rec: 03/29/20 09:37 MB [id number]) Cardio Equipment Recumbent Elliptical (Meal Ticket) Duration (Minutes) 17 Resistance 4 Seat Position 8 Therapeutic Exercises Supine Exercises Hamstring and AP with martial art belt Comments Right leg Alexander stretch Comments Right leg, AP, HS and GS with position, abdominal drawing in Manual Therapy Treatment Other Other Manual Treatments STM posterior right knee and hamstring, AAROM with lavage PT-OP-T Assessment and Plan Start: 03/08/20 14:41 Freq: Status: Active Protocol: Document 03/29/20 09:01 MB (Rec: 03/29/20 09:37 MB [id number]) Physical Therapy Assessment Rehab Potential Rehabilitation Potential Good Evaluation Complexity Number of Personal Factors/Comorbidities 1-2 Number of Body Systems Impaired 1-2 Clinical Presentation at Evaluation Stable Impairments Impairments Activity Tolerance,Balance, Edema,Functional Activities, Functional Mobility,Gait, Integument,Pain,Posture,ROM, Soft Tissue Mobility,Strength, Transfers Other Impairments Pt denies paresthesias and she wears light thigh high compression hose today. She has post-op bandage right knee , no visible ecchymosis through the hose and standard post-op edema Goals 6 Jail Goal (LTG) Pt will present with improved right knee AROM equal to the left to improve sit to stands and gait pattern by 05/11/2020. LTG Duration 8 weeks 5 Delivery Recruiter Goal (LTG) Pt will perform at least 20 reps of sit to stands without UE support in 30 sec to reflect improved functional transfers and strength by 05/11. LTG Duration 8 weeks 4 Delivery Recruiter Goal (LTG) Pt will perform progressive HEP with I including range of motion, strengthening, flexibility, balance and gait exercises to improve overall functional strength by 2020. 03/29/20: For HEP: focus on knee flexion in sitting, stretching on the stairs and stair and gait training (rail on steps and cane left hand for gait practice) LTG Duration 8 weeks 3 Delivery Recruiter Goal (LTG) Pt will ascend and descend 3 steps with receiprocal gait and no AD or rail to allow safe home entrance and exit by 05/11/2020. 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 LTG Duration 8 weeks 1 Jail Goal (LTG) Pt will present with an improved LEF score to reflect no more than 20% impairment to prepare to return to horse and dog ownership tasks by 01/2021. LTG Duration 8 weeks Progress Towards Goals Progress Towards Goals Progressing Toward Goals Progress Comments AROM right knee flexion in sitting to 84 deg today Assessment Summary Assessment Pt saw chiropractor and his massage therapist and while he was able to flex her right knee more, she had more tightness in the inside of right knee and pain after treatment. The swelling con't to be a problem. Once again, pt responds well to lavage and AAROM with PT and presents with improved functional range , gait and edema after PT treatments and she reports that she is sleeping better after PT. PT feels that edema with interventions can exacerbate and give cycle of decreased range tolerance with ADLs, exercise and gait. Con' t to encourage work on gait quality with SPC in left hand. Her active right knee flexion sliding right heel in sitting gets to 84 deg today. Pt is progressing with right knee range. Pt does have some redness and warmth in knee today. PT is concerned about chiropractor treatment and PT communicates this with pt. Physical Therapy Plan Frequency and Duration Frequency of Treatment 3x/Week Duration of Treatment 8 weeks Plan of Care Start Date 03/13/20 Plan of Care End Date 05/11/20 Therapeutic Interventions Therapeutic Interventions Balance Training,Canalithic Repositioning,Gait Training, Home Exercise Program,Joint Mobilizations,Manual Therapy, Neuromuscular Re-education, Patient/Caregiver Education, Self-Care/Home Management,Soft Tissue Mobilization,Taping, Therapeutic Activities, Therapeutic Exercises Modalities Cold Pack/Ice Massage,Electric Stimulation,Hot Packs, Ultrasound Next Visit Focus/Plan Next Note Type Treatment Note Next Visit Plan Try recumbent or upright bike next treatment and discuss if pt should go to gym to do the bike to help with flexion. Con 't manual work--MWM and lavage with pt assisting with HS and APs and SLR.
--- NOTE | 2020-04-02 11:26 | PT.OTN ---
Current Diagnoses Unilateral primary osteoarthritis, right knee (04/02/20) Encounter for other orthopedic aftercare (04/02/20) Physical Therapy Treatment Note PT-OP-A Visit Information Start: 03/08/20 14:41 Freq: Status: Active Protocol: Document 04/02/20 10:36 SP (Rec: 04/02/20 12:03 SP [id number]) Out-Patient Physical Therapy Visit Information Visit Information Visit Type Treatment Note Visit Note [facility] Medicare Advantage, unlimited Visit Start Time 10:36 Visit Stop Time 11:26 Total Visit Minutes 50 Visit Number 7 Number of SMALL PRODUCTS I ASSEMBLER Visits 1 PT-OP-B Current Condition Start: 03/08/20 14:41 Freq: Status: Active Protocol: Document 03/13/20 09:00 MB (Rec: 03/13/20 09:12 MB [id number]) Current Condition History of Current Condition Onset Date 03/07/20 Current Complaints Right knee pain and weakness History of Current Condition Pt is s/p right TKR 03/07/20. Pt has a history of B knee OA, left thumb arthritis, neck arthritis and back arthritis and injections in neck and back. Pt sees chiroprator 2x/ month and massage therapist 1x /month for her neck and back. She has also had work done on her TMJ. She has a thyroid issue. Pt is very active, rides horses and does agility with her dog. Pt reports 7-8/10 pain in her right knee, lateral and posterior leg. The greatest pain is in her groin. She is wearing compression. Prior Treatments and Tests R TKR, back and neck injections, PT in the past. She had a good experience with PT in the past. Treatment Goals Patient/Caregiver Goals I want to get back to riding and pickle ball. PT-OP-C Subjective Start: 03/08/20 14:41 Freq: Status: Active Protocol: Document 04/02/20 10:36 SP (Rec: 04/02/20 12:03 SP [id number]) OP-PT Subjective Patient Comments Patient Comments Pt reported compliant with HEP 2x/ day, 14 ex total with 20- 50 reps. PT-OP-G Mobility & Gait Start: 03/08/20 14:41 Freq: Status: Active Protocol: Document 03/13/20 09:00 MB (Rec: 03/13/20 13:40 MB [id number]) OP Mobility Evaluation Bed Mobility Rolling Pt uses left leg to lift her right leg onto the mat with left toes and forefoot hooked around the back of right distal leg Transfers Sit to Stand Right leg out in front and heavy UE use OP Gait Assessment Gait Gait Assistance Required: Independent Distance (Feet) 75 Able to Maintain Weight Bearing Status Yes During Gait Assistive Devices Assistive Device Front Wheeled Walker Orthotic/Prosthetic Devices or Brace: Yes Gait Deviations General Gait Pattern Antalgic,Decreased Stride Length,Decreased Feet Clearance,Flexed Trunk Factors Limiting Gait Function Factors Limiting Gait Function Decreased Activity Tolerance, Decreased Strength,Limited Range of Motion,Pain Comments Gait Comments Pt's walker is too short for her upon arrival and PT raises it 2 and she is able to gait train better upright. Initially, she has antalgic gait with little heel strike, push off on toes and right knee flexion and hip flexion and extension on the RLE. After gentle manual work after assessment, pt's step-length, upright and heel strike is better. PT-OP-K Range of Motion Start: 03/08/20 14:41 Freq: Status: Active Protocol: Document 03/13/20 09:00 MB (Rec: 03/13/20 13:40 MB [id number]) Knee Goniometric Range of Motion Knee Left Knee ROM WFL Yes Right Knee ROM WFL No Patient Position Long sitting Flexion Active (degrees) 70 Extension Active (degrees) 8 PT-OP-M Strength Start: 03/08/20 14:41 Freq: Status: Active Protocol: Document 03/13/20 09:00 MB (Rec: 03/13/20 13:40 MB [id number]) Hip Strength Hip Manual Muscle Testing Left Flexion (L2) 5 Normal Abduction 5 Normal Right Comments Deferred hip and knee MMT d/t pt reports of high pain Knee Strength Knee Manual Muscle Testing Left Flexion (S2) 5 Normal Extension (L3) 5 Normal Right Comments MMT deferred d/t high pain at rest and with limited AROM Ankle/Foot Strength Ankle and Foot Manual Muscle Testing Left Dorsiflexion (L4) 5 Normal Inversion 5 Normal Eversion (S1) 5 Normal Right Dorsiflexion (L4) 5 Normal Inversion 5 Normal Eversion (S1) 5 Normal Toe Strength Toe Manual Muscle Testing Left Great Toe Extension 5 Normal Right Great Toe Extension 5 Normal PT-OP-Q Treatments Start: 03/08/20 14:41 Freq: Status: Active Protocol: Document 04/02/20 10:36 SP (Rec: 04/02/20 12:03 SP [id number]) Cardio Equipment Bicycle (Upright) Duration (Minutes) 10 Resistance 0 Seat Position 5 Other AAROM, rocking Therapeutic Exercises Prone Exercises prone hang Prone Exercise Name discussed not performed for R knee extension Side right Reps/Minutes time tolerance Comments can add ankle pump after relaxes or knee flexion into eccentric flexion Sitting Exercises stick roll Sitting Exercise Name quad, hs, calf Side right Equipment Used roll stick Reps/Minutes time tolerance Comments sore over quad but ok, good over HS/ calf AAROM R knee flexion Sitting Exercise Name active knee flexion then scoot forward (gentle/slow) Equipment Used chair Reps/Minutes 3 sec hold x3 Comments good response end of there x R knee flexion over uruguayan ball Side right Resistance AROM (table full height) Equipment Used 55cm uruguayan ball Reps/Minutes 2x5 Comments cued no hip hike/lat lean, cued knee over toe w/5% assist align ext Sitting Exercise Name passive ext w/pillow under heel Side right Equipment Used chair Reps/Minutes 30 sec Comments discussed not performed quad set Sitting Exercise Name long sit- quick flicks Side right Reps/Minutes x5 watch patella sup/inf glide Comments less pain in this positon vs supine flex Sitting Exercise Name slider disc Side right Reps/Minutes 5 sec x 8 Comments 92 deg Manual Therapy Treatment Soft Tissue Mobilization scar mob Body Location R Mobilization Type Other Intensity/Depth Superficial Body Position Sitting Comments long sitting manual and self instruction (B fingers either side scar sup/inf/ med/ lat, twist) HS/calf Body Location R HS, calf, quad, med/lat knee Mobilization Type Rolling Intensity/Depth Moderate Body Position Sitting Comments R knee extended in front: retro lavage Joint Mobilizations Patellofemoral Joint R Direction med,lat, sup, inf Grade III Body Position Sitting Comments manual and instruction self helped knee extension relaxation. Other Other Manual Treatments STM posterior right knee and hamstring, AAROM with lavage Self-Care/Home Management Treatment Education Other Education discussed self manual STMs scar mob/mm/patella mob, ROM with ther ex sitting flex and ext then can progress HEP with improved ROM. PT-OP-R Modalities Start: 03/08/20 14:41 Freq: Status: Active Protocol: Document 04/02/20 10:36 SP (Rec: 04/02/20 12:03 SP [id number]) Hot Pack/Cold Pack Treatment cryocuff Location R knee Patient Position Hooklying Treatment Duration (minutes) 8 Patient Tolerance Good Comments decreased pink color noted after ther ex, feels good PT-OP-T Assessment and Plan Start: 03/08/20 14:41 Freq: Status: Active Protocol: Document 04/02/20 10:36 SP (Rec: 04/02/20 12:03 SP [id number]) Physical Therapy Assessment Goals 6 Cloth Beamer Goal (LTG) Pt will present with improved right knee AROM equal to the left to improve sit to stands and gait pattern by 05/11/2020. LTG Duration 8 weeks 5 Mcfp Goal (LTG) Pt will perform at least 20 reps of sit to stands without UE support in 30 sec to reflect improved functional transfers and strength by 05/11. LTG Duration 8 weeks 4 Cloth Beamer Goal (LTG) Pt will perform progressive HEP with I including range of motion, strengthening, flexibility, balance and gait exercises to improve overall functional strength by 2020. 04/02/20: For HEP: focus on knee flexion in sitting(HS, plant foot scoot forward chair, prone hang,long sit knee extension, self stick roll quad/hs/calf), stretching on the stairs and stair and gait training (rail on steps and cane left hand for gait practice) LTG Duration 8 weeks 3 Mcfp Goal (LTG) Pt will ascend and descend 3 steps with receiprocal gait and no AD or rail to allow safe home entrance and exit by 05/11/2020. 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 LTG Duration 8 weeks 1 Mcfp Goal (LTG) Pt will present with an improved LEF score to reflect no more than 20% impairment to prepare to return to horse and dog ownership tasks by 01/2021. LTG Duration 8 weeks Assessment Summary Assessment Pt tolerated tx well, improved in AROM 92 deg R knee post manual and ther ex. Improved in extension post lavage STMs and patella/ scar mobs manual and self instruction. Inititated knee flexion over uruguayan ball in sitting with improved ROM tolerance. Introduced rolling stick to quad, hs, calf with good feedback. Discussed prone hang for extension assist but not performed, review next tx. Good tolerance rocking on upright bike today, continue. Recommended R knee extension/ heel strike and level pelvis to improved trunk lean during gait- almost normal leaving. Physical Therapy Plan Frequency and Duration Frequency of Treatment 3x/Week Duration of Treatment 8 weeks Plan of Care Start Date 03/13/20 Plan of Care End Date 05/11/20 Therapeutic Interventions Therapeutic Interventions Balance Training,Canalithic Repositioning,Gait Training, Home Exercise Program,Joint Mobilizations,Manual Therapy, Neuromuscular Re-education, Patient/Caregiver Education, Self-Care/Home Management,Soft Tissue Mobilization,Taping, Therapeutic Activities, Therapeutic Exercises Modalities Cold Pack/Ice Massage,Electric Stimulation,Hot Packs, Ultrasound Next Visit Focus/Plan Next Note Type Treatment Note Next Visit Plan Assess response to up bike, manual, AAROM ther ex w/ SB today, rolling stick. Next tx prone hang, knee ext in chair review. Con't manual work--MWM and lavage with pt assisting with HS and APs and SLR.
--- NOTE | 2020-04-03 09:45 | PT.OTN ---
Current Diagnoses Unilateral primary osteoarthritis, right knee (04/03/20) Encounter for other orthopedic aftercare (04/03/20) Physical Therapy Treatment Note PT-OP-A Visit Information Start: 03/08/20 14:41 Freq: Status: Active Protocol: Document 04/03/20 09:02 MB (Rec: 04/03/20 09:44 MB [id number]) Out-Patient Physical Therapy Visit Information Visit Information Visit Type Treatment Note Visit Note [facility] Medicare Advantage, unlimited Visit Start Time 09:02 Visit Stop Time 09:43 Total Visit Minutes 41 Visit Number 9 Number of SURFACE PLATE INSPECTOR Visits 0 PT-OP-B Current Condition Start: 03/08/20 14:41 Freq: Status: Active Protocol: Document 03/13/20 09:00 MB (Rec: 03/13/20 09:12 MB [id number]) Current Condition History of Current Condition Onset Date 03/07/20 Current Complaints Right knee pain and weakness History of Current Condition Pt is s/p right TKR 03/07/20. Pt has a history of B knee OA, left thumb arthritis, neck arthritis and back arthritis and injections in neck and back. Pt sees chiroprator 2x/ month and massage therapist 1x /month for her neck and back. She has also had work done on her TMJ. She has a thyroid issue. Pt is very active, rides horses and does agility with her dog. Pt reports 7-8/10 pain in her right knee, lateral and posterior leg. The greatest pain is in her groin. She is wearing compression. Prior Treatments and Tests R TKR, back and neck injections, PT in the past. She had a good experience with PT in the past. Treatment Goals Patient/Caregiver Goals I want to get back to riding and pickle ball. PT-OP-C Subjective Start: 03/08/20 14:41 Freq: Status: Active Protocol: Document 04/03/20 09:02 MB (Rec: 04/03/20 09:44 MB [id number]) OP-PT Subjective Patient Comments Patient Comments Pt has questions about meeting with YENC on Thursday. She states she did 50 reps of exercises twice a day on Thursday and had a lot of soreness afterwards. She went for massage therapy work and not chiropractic treatment. PT-OP-G Mobility & Gait Start: 03/08/20 14:41 Freq: Status: Active Protocol: Document 03/13/20 09:00 MB (Rec: 03/13/20 13:40 MB [id number]) OP Mobility Evaluation Bed Mobility Rolling Pt uses left leg to lift her right leg onto the mat with left toes and forefoot hooked around the back of right distal leg Transfers Sit to Stand Right leg out in front and heavy UE use OP Gait Assessment Gait Gait Assistance Required: Independent Distance (Feet) 75 Able to Maintain Weight Bearing Status Yes During Gait Assistive Devices Assistive Device Front Wheeled Walker Orthotic/Prosthetic Devices or Brace: Yes Gait Deviations General Gait Pattern Antalgic,Decreased Stride Length,Decreased Feet Clearance,Flexed Trunk Factors Limiting Gait Function Factors Limiting Gait Function Decreased Activity Tolerance, Decreased Strength,Limited Range of Motion,Pain Comments Gait Comments Pt's walker is too short for her upon arrival and PT raises it 2 and she is able to gait train better upright. Initially, she has antalgic gait with little heel strike, push off on toes and right knee flexion and hip flexion and extension on the RLE. After gentle manual work after assessment, pt's step-length, upright and heel strike is better. PT-OP-K Range of Motion Start: 03/08/20 14:41 Freq: Status: Active Protocol: Document 03/13/20 09:00 MB (Rec: 03/13/20 13:40 MB [id number]) Knee Goniometric Range of Motion Knee Left Knee ROM WFL Yes Right Knee ROM WFL No Patient Position Long sitting Flexion Active (degrees) 70 Extension Active (degrees) 8 PT-OP-M Strength Start: 03/08/20 14:41 Freq: Status: Active Protocol: Document 03/13/20 09:00 MB (Rec: 03/13/20 13:40 MB [id number]) Hip Strength Hip Manual Muscle Testing Left Flexion (L2) 5 Normal Abduction 5 Normal Right Comments Deferred hip and knee MMT d/t pt reports of high pain Knee Strength Knee Manual Muscle Testing Left Flexion (S2) 5 Normal Extension (L3) 5 Normal Right Comments MMT deferred d/t high pain at rest and with limited AROM Ankle/Foot Strength Ankle and Foot Manual Muscle Testing Left Dorsiflexion (L4) 5 Normal Inversion 5 Normal Eversion (S1) 5 Normal Right Dorsiflexion (L4) 5 Normal Inversion 5 Normal Eversion (S1) 5 Normal Toe Strength Toe Manual Muscle Testing Left Great Toe Extension 5 Normal Right Great Toe Extension 5 Normal PT-OP-Q Treatments Start: 03/08/20 14:41 Freq: Status: Active Protocol: Document 04/03/20 09:02 MB (Rec: 04/03/20 09:44 MB [id number]) Cardio Equipment Bicycle (Upright) Duration (Minutes) 23 Resistance 0 Seat Position 6 Other Partial rotations, knee flexion right to 92 deg on bike Therapeutic Exercises Supine Exercises AP, HS, GS, hip abduction and adduction Comments AP, QS and GS when icing right knee Sitting Exercises Sit to stands without UE support Comments 11 reps today without UE support Gait Training Gait Activity Gait without AD Comments Multiple gait trials during treatment and pt does present with decreased right heel strike and right knee flexion and extension with gait, antalgic quality with 4/10 pain and pt is improving. Pt gait trains 1174 feet in 6 minutes today Self-Care/Home Management Treatment Education Other Education Questions to ask PA-C: can I go to gym? can I go to pool? What prevents scar tissue from forming right away? What is difference to get through slowly on my own conservatively vs undergoing manipulation? PT-OP-R Modalities Start: 03/08/20 14:41 Freq: Status: Active Protocol: Document 04/02/20 10:36 SP (Rec: 04/02/20 12:03 SP [id number]) Hot Pack/Cold Pack Treatment cryocuff Location R knee Patient Position Hooklying Treatment Duration (minutes) 8 Patient Tolerance Good Comments decreased pink color noted after ther ex, feels good PT-OP-T Assessment and Plan Start: 03/08/20 14:41 Freq: Status: Active Protocol: Document 04/03/20 09:02 MB (Rec: 04/03/20 09:44 MB [id number]) Physical Therapy Assessment Rehab Potential Rehabilitation Potential Good Evaluation Complexity Number of Personal Factors/Comorbidities 1-2 Number of Body Systems Impaired 1-2 Clinical Presentation at Evaluation Stable Impairments Impairments Activity Tolerance,Balance, Edema,Functional Activities, Functional Mobility,Gait, Integument,Pain,Posture,ROM, Soft Tissue Mobility,Strength, Transfers Other Impairments Pt denies paresthesias and she wears light thigh high compression hose today. She has post-op bandage right knee , no visible ecchymosis through the hose and standard post-op edema Goals 6 Machine Shop Repair Technician Goal (LTG) Pt will present with improved right knee AROM equal to the left to improve sit to stands and gait pattern by 06/01/2020. 04/03/20: AAROM right knee flexion on bike to 92 deg today, an improvement overall and carryover from yesterday. LTG Duration 8 weeks 5 Care Home Goal (LTG) Pt will perform at least 20 reps of sit to stands without UE support in 30 sec to reflect improved functional transfers and strength by 2020. 04/03/20: Pt performs 11 reps sit to stand without UE support this date. LTG Duration 8 weeks 4 Care Home Goal (LTG) Pt will perform progressive HEP with I including range of motion, strengthening, flexibility, balance and gait exercises to improve overall functional strength by 2020. 04/03/20: Pt is performing exercises everyday including flexion stretch on step, straight leg raises, heel slide sitting and supine, extension dangling, hamstring stretch with APs, Alexander stretch. LTG Duration 8 weeks 3 Machine Shop Repair Technician Goal (LTG) Pt will ascend and descend 3 steps with receiprocal gait and no AD or rail to allow safe home entrance and exit by 06/01/2020. 04/03/20: Pt gait trains 4 steps with reciprocal pattern with two rails today LTG Duration 8 weeks 2 Care Home Goal (LTG) Pt will gait train at least 1500 feet without AD in 6 minutes to improve ambulation for pasture and farm tasks by 06/01/2020. 04/03/20: Pt gait trains 1174 feet in 6 minutes without AD. Pt favors right leg with 4/10 pain with toe push off and decreased push off and heel strike and full knee extension and flexion with gait. LTG Duration 8 weeks 1 Machine Shop Repair Technician Goal (LTG) Pt will present with an improved LEF score to reflect no more than 20% impairment to prepare to return to horse and dog ownership tasks by 06/01. 04/03/20: LEF score reflects 62. 5% impairment, much improvement since evaluation LTG Duration 8 weeks Progress Towards Goals Progress Towards Goals Progressing Toward Goals Progress Comments Right knee flexion to 92 deg on bike today--AAROM Assessment Summary Assessment Pt has progressed towards all PT goals since starting PT. These include ROM, stairs, LEF , gait, sit to stand and exercise goals. Pt will benefit from ongoing PT to improve range and function. Physical Therapy Plan Frequency and Duration Frequency of Treatment 3x/Week Duration of Treatment 8 weeks Plan of Care Start Date 04/03/20 Plan of Care End Date 06/02/19 Therapeutic Interventions Therapeutic Interventions Balance Training,Canalithic Repositioning,Gait Training, Home Exercise Program,Joint Mobilizations,Manual Therapy, Neuromuscular Re-education, Patient/Caregiver Education, Self-Care/Home Management,Soft Tissue Mobilization,Taping, Therapeutic Activities, Therapeutic Exercises Modalities Cold Pack/Ice Massage,Electric Stimulation,Hot Packs, Ultrasound Next Visit Focus/Plan Next Note Type Treatment Note Next Visit Plan Consider rocking exercise for gait improvement, step ups. Con't manual work--MWM and lavage with pt assisting with HS and APs and SLR.
--- NOTE | 2020-04-03 09:45 | PT.OPPOC ---
Physical, Occupational & Speech Therapy At [facility] Current Diagnoses Unilateral primary osteoarthritis, right knee (04/03/20) Encounter for other orthopedic aftercare (04/03/20) Visit Care Team Role Provider Type Antonio Sim MD Primary Care Provider Physician Specialty: Internal Medicine Address: [address] [place] [address], [facility], [place] [address], [place], [address] Email: [email or web address] Dallas Gama MD Attending Provider Non-Staff Referring Provider Specialty: Orthopedic Surgery Address: [address] [place] [address], [id number] Email: Plan Of Care PT-OP-T Assessment and Plan Start: 03/08/20 14:41 Freq: Status: Active Protocol: Document 04/03/20 09:02 MB (Rec: 04/03/20 09:44 MB [id number]) Physical Therapy Assessment Rehab Potential Rehabilitation Potential Good Evaluation Complexity Number of Personal Factors/Comorbidities 1-2 Number of Body Systems Impaired 1-2 Clinical Presentation at Evaluation Stable Impairments Impairments Activity Tolerance,Balance, Edema,Functional Activities, Functional Mobility,Gait, Integument,Pain,Posture,ROM, Soft Tissue Mobility,Strength, Transfers Other Impairments Pt denies paresthesias and she wears light thigh high compression hose today. She has post-op bandage right knee , no visible ecchymosis through the hose and standard post-op edema Goals 6 Senior Living Goal (LTG) Pt will present with improved right knee AROM equal to the left to improve sit to stands and gait pattern by 06/01/2020. 04/03/20: AAROM right knee flexion on bike to 92 deg today, an improvement overall and carryover from yesterday. LTG Duration 8 weeks 5 Senior Living Goal (LTG) Pt will perform at least 20 reps of sit to stands without UE support in 30 sec to reflect improved functional transfers and strength by 2020. 04/03/20: Pt performs 11 reps sit to stand without UE support this date. LTG Duration 8 weeks 4 Circus Agent Goal (LTG) Pt will perform progressive HEP with I including range of motion, strengthening, flexibility, balance and gait exercises to improve overall functional strength by 2020. 04/03/20: Pt is performing exercises everyday including flexion stretch on step, straight leg raises, heel slide sitting and supine, extension dangling, hamstring stretch with APs, Alexander stretch. LTG Duration 8 weeks 3 Senior Living Goal (LTG) Pt will ascend and descend 3 steps with receiprocal gait and no AD or rail to allow safe home entrance and exit by 06/01/2020. 04/03/20: Pt gait trains 4 steps with reciprocal pattern with two rails today LTG Duration 8 weeks 2 Senior Living Goal (LTG) Pt will gait train at least 1500 feet without AD in 6 minutes to improve ambulation for pasture and farm tasks by 06/01/2020. 04/03/20: Pt gait trains 1174 feet in 6 minutes without AD. Pt favors right leg with 4/10 pain with toe push off and decreased push off and heel strike and full knee extension and flexion with gait. LTG Duration 8 weeks 1 Circus Agent Goal (LTG) Pt will present with an improved LEF score to reflect no more than 20% impairment to prepare to return to horse and dog ownership tasks by 06/01. 04/03/20: LEF score reflects 62. 5% impairment, much improvement since evaluation LTG Duration 8 weeks Progress Towards Goals Progress Towards Goals Progressing Toward Goals Progress Comments Right knee flexion to 92 deg on bike today--AAROM Assessment Summary Assessment Pt has progressed towards all PT goals since starting PT. These include ROM, stairs, LEF , gait, sit to stand and exercise goals. Pt will benefit from ongoing PT to improve range and function. Physical Therapy Plan Frequency and Duration Frequency of Treatment 3x/Week Duration of Treatment 8 weeks Plan of Care Start Date 04/03/20 Plan of Care End Date 06/02/19 Therapeutic Interventions Therapeutic Interventions Balance Training,Canalithic Repositioning,Gait Training, Home Exercise Program,Joint Mobilizations,Manual Therapy, Neuromuscular Re-education, Patient/Caregiver Education, Self-Care/Home Management,Soft Tissue Mobilization,Taping, Therapeutic Activities, Therapeutic Exercises Modalities Cold Pack/Ice Massage,Electric Stimulation,Hot Packs, Ultrasound Next Visit Focus/Plan Next Note Type Treatment Note Next Visit Plan Consider rocking exercise for gait improvement, step ups. Con't manual work--MWM and lavage with pt assisting with HS and APs and SLR. Plan of Care Dates Plan of Care Start Date 04/03/20 Plan of Care End Date 06/02/19 Electronically Signed by: Mariela Tavarez PT 04/03/20 0945 Please Sign and Return: I have reviewed this Plan of Care and certify that the skilled therapy services above are required to meet the patient?s needs. Physician Signature Date Printed Name and Credentials Clinical Instructor Signature Printed Name and Credentials
--- NOTE | 2020-04-06 10:25 | PT.OTN ---
Current Diagnoses Unilateral primary osteoarthritis, right knee (04/06/20) Encounter for other orthopedic aftercare (04/06/20) Physical Therapy Treatment Note PT-OP-A Visit Information Start: 03/08/20 14:41 Freq: Status: Active Protocol: Document 04/06/20 09:45 MB (Rec: 04/06/20 10:24 MB [id number]) Out-Patient Physical Therapy Visit Information Visit Information Visit Type Treatment Note Visit Note [facility] Medicare Advantage, unlimited Visit Start Time 09:45 Visit Stop Time 10:23 Total Visit Minutes 38 Visit Number 10 Number of PRESCHOOL TEACHER AIDE Visits 0 PT-OP-B Current Condition Start: 03/08/20 14:41 Freq: Status: Active Protocol: Document 03/13/20 09:00 MB (Rec: 03/13/20 09:12 MB [id number]) Current Condition History of Current Condition Onset Date 03/07/20 Current Complaints Right knee pain and weakness History of Current Condition Pt is s/p right TKR 03/07/20. Pt has a history of B knee OA, left thumb arthritis, neck arthritis and back arthritis and injections in neck and back. Pt sees chiroprator 2x/ month and massage therapist 1x /month for her neck and back. She has also had work done on her TMJ. She has a thyroid issue. Pt is very active, rides horses and does agility with her dog. Pt reports 7-8/10 pain in her right knee, lateral and posterior leg. The greatest pain is in her groin. She is wearing compression. Prior Treatments and Tests R TKR, back and neck injections, PT in the past. She had a good experience with PT in the past. Treatment Goals Patient/Caregiver Goals I want to get back to riding and pickle ball. PT-OP-C Subjective Start: 03/08/20 14:41 Freq: Status: Active Protocol: Document 04/06/20 09:45 MB (Rec: 04/06/20 10:24 MB [id number]) OP-PT Subjective Patient Comments Patient Comments Pt felt okay after last PT session. PT-OP-G Mobility & Gait Start: 03/08/20 14:41 Freq: Status: Active Protocol: Document 03/13/20 09:00 MB (Rec: 03/13/20 13:40 MB [id number]) OP Mobility Evaluation Bed Mobility Rolling Pt uses left leg to lift her right leg onto the mat with left toes and forefoot hooked around the back of right distal leg Transfers Sit to Stand Right leg out in front and heavy UE use OP Gait Assessment Gait Gait Assistance Required: Independent Distance (Feet) 75 Able to Maintain Weight Bearing Status Yes During Gait Assistive Devices Assistive Device Front Wheeled Walker Orthotic/Prosthetic Devices or Brace: Yes Gait Deviations General Gait Pattern Antalgic,Decreased Stride Length,Decreased Feet Clearance,Flexed Trunk Factors Limiting Gait Function Factors Limiting Gait Function Decreased Activity Tolerance, Decreased Strength,Limited Range of Motion,Pain Comments Gait Comments Pt's walker is too short for her upon arrival and PT raises it 2 and she is able to gait train better upright. Initially, she has antalgic gait with little heel strike, push off on toes and right knee flexion and hip flexion and extension on the RLE. After gentle manual work after assessment, pt's step-length, upright and heel strike is better. PT-OP-K Range of Motion Start: 03/08/20 14:41 Freq: Status: Active Protocol: Document 03/13/20 09:00 MB (Rec: 03/13/20 13:40 MB [id number]) Knee Goniometric Range of Motion Knee Left Knee ROM WFL Yes Right Knee ROM WFL No Patient Position Long sitting Flexion Active (degrees) 70 Extension Active (degrees) 8 PT-OP-M Strength Start: 03/08/20 14:41 Freq: Status: Active Protocol: Document 03/13/20 09:00 MB (Rec: 03/13/20 13:40 MB [id number]) Hip Strength Hip Manual Muscle Testing Left Flexion (L2) 5 Normal Abduction 5 Normal Right Comments Deferred hip and knee MMT d/t pt reports of high pain Knee Strength Knee Manual Muscle Testing Left Flexion (S2) 5 Normal Extension (L3) 5 Normal Right Comments MMT deferred d/t high pain at rest and with limited AROM Ankle/Foot Strength Ankle and Foot Manual Muscle Testing Left Dorsiflexion (L4) 5 Normal Inversion 5 Normal Eversion (S1) 5 Normal Right Dorsiflexion (L4) 5 Normal Inversion 5 Normal Eversion (S1) 5 Normal Toe Strength Toe Manual Muscle Testing Left Great Toe Extension 5 Normal Right Great Toe Extension 5 Normal PT-OP-Q Treatments Start: 03/08/20 14:41 Freq: Status: Active Protocol: Document 04/06/20 09:45 MB (Rec: 04/06/20 10:24 MB [id number]) Cardio Equipment Bicycle (Upright) Duration (Minutes) 13 Resistance 0 Seat Position 6 and 7 Gait Training Gait Activity Gait exercises in // bars Comments 25' gait exercises/activities in // bars: Pt sliding hands along the bars, with no ankle weights and then with 1, focus on heel toe gait Break to practice TKR with right leg behind and level 1 band resistance and gait quality is improved afterwards : sliding hands along // bars. Pt's right leg is still edematous compared to the left Ankle weight, step over alternating lead foot, one step with // bar support, pt has trouble with descending with left foot first. She performs heel raise on the left foot with full weight acceptance on the left Side stepping too easy, backward stepping too easy Standing rocking and step- through rocking steps in // bars with support--cues for weight shift, weight bearing through toes and forefoot PT-OP-R Modalities Start: 03/08/20 14:41 Freq: Status: Active Protocol: Document 04/02/20 10:36 SP (Rec: 04/02/20 12:03 SP [id number]) Hot Pack/Cold Pack Treatment cryocuff Location R knee Patient Position Hooklying Treatment Duration (minutes) 8 Patient Tolerance Good Comments decreased pink color noted after ther ex, feels good PT-OP-T Assessment and Plan Start: 03/08/20 14:41 Freq: Status: Active Protocol: Document 04/06/20 09:45 MB (Rec: 04/06/20 10:24 MB [id number]) Physical Therapy Assessment Rehab Potential Rehabilitation Potential Good Evaluation Complexity Number of Personal Factors/Comorbidities 1-2 Number of Body Systems Impaired 1-2 Clinical Presentation at Evaluation Stable Impairments Impairments Activity Tolerance,Balance, Edema,Functional Activities, Functional Mobility,Gait, Integument,Pain,Posture,ROM, Soft Tissue Mobility,Strength, Transfers Other Impairments Pt denies paresthesias and she wears light thigh high compression hose today. She has post-op bandage right knee , no visible ecchymosis through the hose and standard post-op edema Goals 6 Plumbing Installer Goal (LTG) Pt will present with improved right knee AROM equal to the left to improve sit to stands and gait pattern by 06/01/2020. 04/03/20: AAROM right knee flexion on bike to 92 deg today, an improvement overall and carryover from yesterday. LTG Duration 8 weeks 5 Plumbing Installer Goal (LTG) Pt will perform at least 20 reps of sit to stands without UE support in 30 sec to reflect improved functional transfers and strength by 2020. 04/03/20: Pt performs 11 reps sit to stand without UE support this date. LTG Duration 8 weeks 4 Plumbing Installer Goal (LTG) Pt will perform progressive HEP with I including range of motion, strengthening, flexibility, balance and gait exercises to improve overall functional strength by 2020. 04/03/20: Pt is performing exercises everyday including flexion stretch on step, straight leg raises, heel slide sitting and supine, extension dangling, hamstring stretch with APs, Alexander stretch. LTG Duration 8 weeks 3 Fpc Goal (LTG) Pt will ascend and descend 3 steps with receiprocal gait and no AD or rail to allow safe home entrance and exit by 06/01/2020. 04/03/20: Pt gait trains 4 steps with reciprocal pattern with two rails today LTG Duration 8 weeks 2 Plumbing Installer Goal (LTG) Pt will gait train at least 1500 feet without AD in 6 minutes to improve ambulation for pasture and farm tasks by 06/01/2020. 04/03/20: Pt gait trains 1174 feet in 6 minutes without AD. Pt favors right leg with 4/10 pain with toe push off and decreased push off and heel strike and full knee extension and flexion with gait. LTG Duration 8 weeks 1 Fpc Goal (LTG) Pt will present with an improved LEF score to reflect no more than 20% impairment to prepare to return to horse and dog ownership tasks by 06/01. 04/03/20: LEF score reflects 62. 5% impairment, much improvement since evaluation LTG Duration 8 weeks Assessment Summary Assessment Pt con't with antalgic gait with increased right knee flexion, decreased right heel strike and toe off and so gait exercises today. Her functional movement on the bike is better today. She still cannot make full revolution. Pt to see PA-C today. Pt's right knee extension is better with gait after gait exercises. Icing right knee after treatment. Physical Therapy Plan Frequency and Duration Frequency of Treatment 3x/Week Duration of Treatment 8 weeks Plan of Care Start Date 04/03/20 Plan of Care End Date 06/02/19 Therapeutic Interventions Therapeutic Interventions Balance Training,Canalithic Repositioning,Gait Training, Home Exercise Program,Joint Mobilizations,Manual Therapy, Neuromuscular Re-education, Patient/Caregiver Education, Self-Care/Home Management,Soft Tissue Mobilization,Taping, Therapeutic Activities, Therapeutic Exercises Modalities Cold Pack/Ice Massage,Electric Stimulation,Hot Packs, Ultrasound Next Visit Focus/Plan Next Note Type Treatment Note Next Visit Plan Further gait activities. Add TKE with band at home. Con't manual work--MWM and lavage with pt assisting with HS and APs and SLR.
--- NOTE | 2020-04-10 09:46 | PT.OTN ---
Current Diagnoses Unilateral primary osteoarthritis, right knee (04/10/20) Encounter for other orthopedic aftercare (04/10/20) Physical Therapy Treatment Note PT-OP-A Visit Information Start: 03/08/20 14:41 Freq: Status: Active Protocol: Document 04/10/20 08:56 SP (Rec: 04/10/20 11:35 SP [id number]) Out-Patient Physical Therapy Visit Information Visit Information Visit Type Treatment Note Visit Note [facility] Medicare Advantage, unlimited SPTA Katlyn venturaded tx. Visit Start Time 08:56 Visit Stop Time 09:46 Total Visit Minutes 50 Visit Number 11 Number of CLOSER ON Visits 1 PT-OP-B Current Condition Start: 03/08/20 14:41 Freq: Status: Active Protocol: Document 03/13/20 09:00 MB (Rec: 03/13/20 09:12 MB [id number]) Current Condition History of Current Condition Onset Date 03/07/20 Current Complaints Right knee pain and weakness History of Current Condition Pt is s/p right TKR 03/07/20. Pt has a history of B knee OA, left thumb arthritis, neck arthritis and back arthritis and injections in neck and back. Pt sees chiroprator 2x/ month and massage therapist 1x /month for her neck and back. She has also had work done on her TMJ. She has a thyroid issue. Pt is very active, rides horses and does agility with her dog. Pt reports 7-8/10 pain in her right knee, lateral and posterior leg. The greatest pain is in her groin. She is wearing compression. Prior Treatments and Tests R TKR, back and neck injections, PT in the past. She had a good experience with PT in the past. Treatment Goals Patient/Caregiver Goals I want to get back to riding and pickle ball. PT-OP-C Subjective Start: 03/08/20 14:41 Freq: Status: Active Protocol: Document 04/10/20 08:56 SP (Rec: 04/10/20 11:35 SP [id number]) OP-PT Subjective Patient Comments Patient Comments Pt reported that physician isn 't as pleased with ROM and wanted and so want her and PT to be more aggressive. Pt states is doing everything she is instructed: rest elevation , exercises 2x day, feels the swelling is preventing her from gaining ROM and is wearing her hose as should to help. PT-OP-G Mobility & Gait Start: 03/08/20 14:41 Freq: Status: Active Protocol: Document 03/13/20 09:00 MB (Rec: 03/13/20 13:40 MB [id number]) OP Mobility Evaluation Bed Mobility Rolling Pt uses left leg to lift her right leg onto the mat with left toes and forefoot hooked around the back of right distal leg Transfers Sit to Stand Right leg out in front and heavy UE use OP Gait Assessment Gait Gait Assistance Required: Independent Distance (Feet) 75 Able to Maintain Weight Bearing Status Yes During Gait Assistive Devices Assistive Device Front Wheeled Walker Orthotic/Prosthetic Devices or Brace: Yes Gait Deviations General Gait Pattern Antalgic,Decreased Stride Length,Decreased Feet Clearance,Flexed Trunk Factors Limiting Gait Function Factors Limiting Gait Function Decreased Activity Tolerance, Decreased Strength,Limited Range of Motion,Pain Comments Gait Comments Pt's walker is too short for her upon arrival and PT raises it 2 and she is able to gait train better upright. Initially, she has antalgic gait with little heel strike, push off on toes and right knee flexion and hip flexion and extension on the RLE. After gentle manual work after assessment, pt's step-length, upright and heel strike is better. PT-OP-K Range of Motion Start: 03/08/20 14:41 Freq: Status: Active Protocol: Document 03/13/20 09:00 MB (Rec: 03/13/20 13:40 MB [id number]) Knee Goniometric Range of Motion Knee Left Knee ROM WFL Yes Right Knee ROM WFL No Patient Position Long sitting Flexion Active (degrees) 70 Extension Active (degrees) 8 PT-OP-M Strength Start: 03/08/20 14:41 Freq: Status: Active Protocol: Document 03/13/20 09:00 MB (Rec: 03/13/20 13:40 MB [id number]) Hip Strength Hip Manual Muscle Testing Left Flexion (L2) 5 Normal Abduction 5 Normal Right Comments Deferred hip and knee MMT d/t pt reports of high pain Knee Strength Knee Manual Muscle Testing Left Flexion (S2) 5 Normal Extension (L3) 5 Normal Right Comments MMT deferred d/t high pain at rest and with limited AROM Ankle/Foot Strength Ankle and Foot Manual Muscle Testing Left Dorsiflexion (L4) 5 Normal Inversion 5 Normal Eversion (S1) 5 Normal Right Dorsiflexion (L4) 5 Normal Inversion 5 Normal Eversion (S1) 5 Normal Toe Strength Toe Manual Muscle Testing Left Great Toe Extension 5 Normal Right Great Toe Extension 5 Normal PT-OP-Q Treatments Start: 03/08/20 14:41 Freq: Status: Active Protocol: Document 04/10/20 08:56 SP (Rec: 04/10/20 11:35 SP [id number]) Cardio Equipment Recumbent Bicycle Duration (Minutes) 10 Resistance 0 Seat Position 7 Other rocking f/b Bicycle (Upright) Duration (Minutes) 6 Resistance 0 Seat Position 7 Other fulll rotation f/b w/ noted hip elevation compenstations ( 90* flexion) Gym Equipment Shuttle Recovery Bilateral Squats Details AAROM into Knee flexion Resistance 50# Shuttle Recovery Platform Stable Reps/Time x10 Therapeutic Exercises Supine Exercises R knee flexion over swill ball Side right Resistance AAROM Equipment Used 55cm cuban ball Reps/Minutes many Comments tactile assist for ankle mobility Sitting Exercises R knee flexion over cuban ball Side right Resistance AAROM Equipment Used 55cm cuban ball, elevated table Reps/Minutes 2x5 Comments occasional no hip hike, assisted facilitation ankle DF during knee flexion Standing Exercises heel raise Standing Exercise Name support extension Side right Comments assess next tx if good to add off step for ankle ROM and calf elongation TKE Side right Resistance Tb #1 Reps/Minutes x8 reps Comments between gait to for knee flexion HS/ Ext quad facilitation assist Gait Training Gait Activity stair mgt Comments reassess future Gait without AD Description knee flexion/ ext heel toe quality Device Used mirror self visual feedback Level of Assistance SBA Surface stable Distance/Duration 20 ft x4 laps total Treatment Focus quality heel toe, trunk alignment Comments cued knee alignment w/toe laterally no medial cave and ankle ROM, improved post manual, cued slow pacing quallity and excuate mobility/ ROM Manual Therapy Treatment Soft Tissue Mobilization HS/calf Body Location R HS, calf, quad, med/lat knee Mobilization Type Cross-Friction,Myofascial Release Intensity/Depth Moderate Body Position Sitting Comments propped up on 55cm ball between AAROM and assisted end range stretch into knee flex/ ext Joint Mobilizations PA talocrual jt Joint R Direction AP Grade II Body Position Sitting Comments long sitting, assist ankle DF ROM- pt reported feels stiff and hurts during exercises- good response post manual tibial femoral AP, AP Joint R Grade II Body Position Supine Comments extended and various ranges into flexion to allow femur glide on tibia for assisted ROM Patellofemoral Joint R Direction med,lat, sup, inf Grade III Body Position Sitting Comments manual PT-OP-R Modalities Start: 03/08/20 14:41 Freq: Status: Active Protocol: Document 04/10/20 08:56 SP (Rec: 04/10/20 11:35 SP [id number]) Hot Pack/Cold Pack Treatment CP Location knee A/P Patient Position Supine Treatment Duration (minutes) 10 Patient Tolerance Good Comments good tolerance PT-OP-T Assessment and Plan Start: 03/08/20 14:41 Freq: Status: Active Protocol: Document 04/10/20 08:56 SP (Rec: 04/10/20 11:35 SP [id number]) Physical Therapy Assessment Goals 6 [facility]ci Goal (LTG) Pt will present with improved right knee AROM equal to the left to improve sit to stands and gait pattern by 06/01/2020. 04/03/20: AAROM right knee flexion on bike to 92 deg today, an improvement overall and carryover from yesterday. LTG Duration 8 weeks 5 [facility]ci Goal (LTG) Pt will perform at least 20 reps of sit to stands without UE support in 30 sec to reflect improved functional transfers and strength by 2020. 04/03/20: Pt performs 11 reps sit to stand without UE support this date. LTG Duration 8 weeks 4 [facility]ci Goal (LTG) Pt will perform progressive HEP with I including range of motion, strengthening, flexibility, balance and gait exercises to improve overall functional strength by 2020. 04/03/20: Pt is performing exercises everyday including flexion stretch on step, straight leg raises, heel slide sitting and supine, extension dangling, hamstring stretch with APs, Alexander stretch, TKE. LTG Duration 8 weeks 3 Critical Care Rn Goal (LTG) Pt will ascend and descend 3 steps with receiprocal gait and no AD or rail to allow safe home entrance and exit by 06/01/2020. 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 04/03/20: Pt gait trains 1174 feet in 6 minutes without AD. Pt favors right leg with 4/10 pain with toe push off and decreased push off and heel strike and full knee extension and flexion with gait. LTG Duration 8 weeks 1 [facility]ci Goal (LTG) Pt will present with an improved LEF score to reflect no more than 20% impairment to prepare to return to horse and dog ownership tasks by 06/01. 04/03/20: LEF score reflects 62. 5% impairment, much improvement since evaluation LTG Duration 8 weeks Assessment Summary Assessment Pt worked hard during tx on AAROM into R knee flexion/ extension using cuban ball, bike, shuttle recovery and manual. Improved in R LE quality heel toe, extension pre heel strike and trunk alignment. Pt has better awareness for slower pacing for better quality decreased antalgic performance leaving. Physical Therapy Plan Frequency and Duration Frequency of Treatment 3x/Week Duration of Treatment 8 weeks Plan of Care Start Date 04/03/20 Plan of Care End Date 06/02/19 Therapeutic Interventions Therapeutic Interventions Balance Training,Canalithic Repositioning,Gait Training, Home Exercise Program,Joint Mobilizations,Manual Therapy, Neuromuscular Re-education, Patient/Caregiver Education, Self-Care/Home Management,Soft Tissue Mobilization,Taping, Therapeutic Activities, Therapeutic Exercises Modalities Cold Pack/Ice Massage,Electric Stimulation,Hot Packs, Ultrasound Next Visit Focus/Plan Next Note Type Treatment Note Next Visit Plan Assess response to manual jt mobs, AAROM upright and recumbent bike, gait, leg press AAROM into flexion with good response. Continue per PT POC: Further gait activities, manual work-- MWM and lavage with pt assisting with HS, calf and APs and SLR.
--- NOTE | 2020-04-11 15:08 | PT.OTN ---
Current Diagnoses Unilateral primary osteoarthritis, right knee (04/11/20) Encounter for other orthopedic aftercare (04/11/20) Physical Therapy Treatment Note PT-OP-A Visit Information Start: 03/08/20 14:41 Freq: Status: Active Protocol: Document 04/11/20 13:48 MB (Rec: 04/11/20 14:31 MB [id number]) Out-Patient Physical Therapy Visit Information Visit Information Visit Type Treatment Note Visit Note [facility] Medicare Advantage, unlimited Visit Start Time 13:48 Visit Stop Time 14:30 Total Visit Minutes 42 Visit Number 12 Number of CARBURETOR EXPERT Visits 0 PT-OP-B Current Condition Start: 03/08/20 14:41 Freq: Status: Active Protocol: Document 03/13/20 09:00 MB (Rec: 03/13/20 09:12 MB [id number]) Current Condition History of Current Condition Onset Date 03/07/20 Current Complaints Right knee pain and weakness History of Current Condition Pt is s/p right TKR 03/07/20. Pt has a history of B knee OA, left thumb arthritis, neck arthritis and back arthritis and injections in neck and back. Pt sees chiroprator 2x/ month and massage therapist 1x /month for her neck and back. She has also had work done on her TMJ. She has a thyroid issue. Pt is very active, rides horses and does agility with her dog. Pt reports 7-8/10 pain in her right knee, lateral and posterior leg. The greatest pain is in her groin. She is wearing compression. Prior Treatments and Tests R TKR, back and neck injections, PT in the past. She had a good experience with PT in the past. Treatment Goals Patient/Caregiver Goals I want to get back to riding and pickle ball. PT-OP-C Subjective Start: 03/08/20 14:41 Freq: Status: Active Protocol: Document 04/11/20 13:48 MB (Rec: 04/11/20 14:31 MB [id number]) OP-PT Subjective Patient Comments Patient Comments I did the pool for an hour today. I did swiming laps, exaggerated walking in the lazy river and kicking at the side of the pool. I got an alert from [employer] and my US showed a muscle rupture. PT-OP-G Mobility & Gait Start: 03/08/20 14:41 Freq: Status: Active Protocol: Document 03/13/20 09:00 MB (Rec: 03/13/20 13:40 MB [id number]) OP Mobility Evaluation Bed Mobility Rolling Pt uses left leg to lift her right leg onto the mat with left toes and forefoot hooked around the back of right distal leg Transfers Sit to Stand Right leg out in front and heavy UE use OP Gait Assessment Gait Gait Assistance Required: Independent Distance (Feet) 75 Able to Maintain Weight Bearing Status Yes During Gait Assistive Devices Assistive Device Front Wheeled Walker Orthotic/Prosthetic Devices or Brace: Yes Gait Deviations General Gait Pattern Antalgic,Decreased Stride Length,Decreased Feet Clearance,Flexed Trunk Factors Limiting Gait Function Factors Limiting Gait Function Decreased Activity Tolerance, Decreased Strength,Limited Range of Motion,Pain Comments Gait Comments Pt's walker is too short for her upon arrival and PT raises it 2 and she is able to gait train better upright. Initially, she has antalgic gait with little heel strike, push off on toes and right knee flexion and hip flexion and extension on the RLE. After gentle manual work after assessment, pt's step-length, upright and heel strike is better. PT-OP-K Range of Motion Start: 03/08/20 14:41 Freq: Status: Active Protocol: Document 03/13/20 09:00 MB (Rec: 03/13/20 13:40 MB [id number]) Knee Goniometric Range of Motion Knee Left Knee ROM WFL Yes Right Knee ROM WFL No Patient Position Long sitting Flexion Active (degrees) 70 Extension Active (degrees) 8 PT-OP-M Strength Start: 03/08/20 14:41 Freq: Status: Active Protocol: Document 03/13/20 09:00 MB (Rec: 03/13/20 13:40 MB [id number]) Hip Strength Hip Manual Muscle Testing Left Flexion (L2) 5 Normal Abduction 5 Normal Right Comments Deferred hip and knee MMT d/t pt reports of high pain Knee Strength Knee Manual Muscle Testing Left Flexion (S2) 5 Normal Extension (L3) 5 Normal Right Comments MMT deferred d/t high pain at rest and with limited AROM Ankle/Foot Strength Ankle and Foot Manual Muscle Testing Left Dorsiflexion (L4) 5 Normal Inversion 5 Normal Eversion (S1) 5 Normal Right Dorsiflexion (L4) 5 Normal Inversion 5 Normal Eversion (S1) 5 Normal Toe Strength Toe Manual Muscle Testing Left Great Toe Extension 5 Normal Right Great Toe Extension 5 Normal PT-OP-Q Treatments Start: 03/08/20 14:41 Freq: Status: Active Protocol: Document 04/11/20 13:48 MB (Rec: 04/11/20 14:31 MB [id number]) Cardio Equipment Bicycle (Upright) Duration (Minutes) 15 Resistance 4 Seat Position 7 Other Many minutes of partial revolutions and then full Therapeutic Exercises Supine Exercises Hook lying clam with band Comments 10 reps x2 slowly with level 1 band Alexander stretch Comments Performed today Neuro Re-Education Treatment Other Activities PNF B side lying Comments PNF B side lying to improve B coordination of pelvis, hip, knee and ankle for LE movement . PT manual assistance for all movements of pelvis and LE, leg moving into flexion and extension PT-OP-R Modalities Start: 03/08/20 14:41 Freq: Status: Active Protocol: Document 04/10/20 08:56 SP (Rec: 04/10/20 11:35 SP [id number]) Hot Pack/Cold Pack Treatment CP Location knee A/P Patient Position Supine Treatment Duration (minutes) 10 Patient Tolerance Good Comments good tolerance PT-OP-T Assessment and Plan Start: 03/08/20 14:41 Freq: Status: Active Protocol: Document 04/11/20 13:48 MB (Rec: 04/11/20 14:31 MB [id number]) Physical Therapy Assessment Rehab Potential Rehabilitation Potential Good Evaluation Complexity Number of Personal Factors/Comorbidities 1-2 Number of Body Systems Impaired 1-2 Clinical Presentation at Evaluation Stable Impairments Impairments Activity Tolerance,Balance, Edema,Functional Activities, Functional Mobility,Gait, Integument,Pain,Posture,ROM, Soft Tissue Mobility,Strength, Transfers Other Impairments Pt denies paresthesias and she wears light thigh high compression hose today. She has post-op bandage right knee , no visible ecchymosis through the hose and standard post-op edema Goals 6 Landscape Crew Leader Goal (LTG) Pt will present with improved right knee AROM equal to the left to improve sit to stands and gait pattern by 06/01/2020. 04/03/20: AAROM right knee flexion on bike to 92 deg today, an improvement overall and carryover from yesterday. LTG Duration 8 weeks 5 Landscape Crew Leader Goal (LTG) Pt will perform at least 20 reps of sit to stands without UE support in 30 sec to reflect improved functional transfers and strength by 2020. 04/03/20: Pt performs 11 reps sit to stand without UE support this date. LTG Duration 8 weeks 4 Landscape Crew Leader Goal (LTG) Pt will perform progressive HEP with I including range of motion, strengthening, flexibility, balance and gait exercises to improve overall functional strength by 2020. 04/03/20: Pt is performing exercises everyday including flexion stretch on step, straight leg raises, heel slide sitting and supine, extension dangling, hamstring stretch with APs, Alexander stretch. LTG Duration 8 weeks 3 Correction Goal (LTG) Pt will ascend and descend 3 steps with receiprocal gait and no AD or rail to allow safe home entrance and exit by 06/01/2020. 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 04/03/20: Pt gait trains 1174 feet in 6 minutes without AD. Pt favors right leg with 4/10 pain with toe push off and decreased push off and heel strike and full knee extension and flexion with gait. LTG Duration 8 weeks 1 Correction Goal (LTG) Pt will present with an improved LEF score to reflect no more than 20% impairment to prepare to return to horse and dog ownership tasks by 06/01. 04/03/20: LEF score reflects 62. 5% impairment, much improvement since evaluation LTG Duration 8 weeks Assessment Summary Assessment Overall, pt's gait is worse today. She did a lot of pool exercises earlier today. PT reviews pt's e-chart on pt's phone and venous duplex reveals right popliteal non- vascular structure (possible muscle rupture) that may explain pt's symptoms. PT is concerned about this finding as a muscle tear could certainly explain her ongoing edema and decreased range. Also, her valgus angle of right knee is 15 deg and this could contribute to her range and gait challenges. Pt does not have a pre-op video of gait. Her right rearfoot is over pronated. PT calls Dr. Gama's office to ask to speak with him, PA or other provider but no one is available. PT will send this note as an e-fax communication . Overall, PT feels that there may be a surgical or anatomical change contributing to her presentation. Ed pt to decrease exercise number and do the decreased amount for less duration twice a day vs less exercise and upright stationary bike 15 minutes once a day. When she is not doing these, she will get back into the pool for walking and treading water with pool noodle. She has one more PT appointment this week and a massage scheduled as well. Added hip abduction exercises today to help with gait form. Physical Therapy Plan Frequency and Duration Frequency of Treatment 3x/Week Duration of Treatment 8 weeks Plan of Care Start Date 04/03/20 Plan of Care End Date 06/02/19 Therapeutic Interventions Therapeutic Interventions Balance Training,Canalithic Repositioning,Gait Training, Home Exercise Program,Joint Mobilizations,Manual Therapy, Neuromuscular Re-education, Patient/Caregiver Education, Self-Care/Home Management,Soft Tissue Mobilization,Taping, Therapeutic Activities, Therapeutic Exercises Modalities Cold Pack/Ice Massage,Electric Stimulation,Hot Packs, Ultrasound Next Visit Focus/Plan Next Note Type Treatment Note Next Visit Plan Upright bike for range, review hook lying clam with band to help with abduction and add bridge and re-check gait, ongoing PNF and hip extension and abduction to help with gait form.
--- NOTE | 2020-04-12 07:26 | PT-OP ANOTE ---
Pt cancelled same day appt, ortho wants to see her this am for follow up from testing completed recently. She will call back to reschedule today's appt if can.
--- NOTE | 2020-04-12 11:09 | PT-OP ANOTE ---
Pt states that she went to the orthopedist and she is scheduled for a closed manipulation under anesthesia 04/19/20. She was told that she will need PT 5x/wk after that. She states that the doctor office will be sending the order for this.
--- NOTE | 2020-04-17 09:48 | PT.OTN ---
Current Diagnoses Unilateral primary osteoarthritis, right knee (04/17/20) Encounter for other orthopedic aftercare (04/17/20) Physical Therapy Treatment Note PT-OP-A Visit Information Start: 03/08/20 14:41 Freq: Status: Active Protocol: Document 04/17/20 09:00 MB (Rec: 04/17/20 09:18 MB [id number]) Out-Patient Physical Therapy Visit Information Visit Information Visit Type Treatment Note Visit Note [facility] Medicare Advantage, unlimited Visit Start Time 09:00 Visit Stop Time 09:45 Total Visit Minutes 45 Visit Number 13 PT-OP-B Current Condition Start: 03/08/20 14:41 Freq: Status: Active Protocol: Document 03/13/20 09:00 MB (Rec: 03/13/20 09:12 MB [id number]) Current Condition History of Current Condition Onset Date 03/07/20 Current Complaints Right knee pain and weakness History of Current Condition Pt is s/p right TKR 03/07/20. Pt has a history of B knee OA, left thumb arthritis, neck arthritis and back arthritis and injections in neck and back. Pt sees chiroprator 2x/ month and massage therapist 1x /month for her neck and back. She has also had work done on her TMJ. She has a thyroid issue. Pt is very active, rides horses and does agility with her dog. Pt reports 7-8/10 pain in her right knee, lateral and posterior leg. The greatest pain is in her groin. She is wearing compression. Prior Treatments and Tests R TKR, back and neck injections, PT in the past. She had a good experience with PT in the past. Treatment Goals Patient/Caregiver Goals I want to get back to riding and pickle ball. PT-OP-C Subjective Start: 03/08/20 14:41 Freq: Status: Active Protocol: Document 04/17/20 09:00 MB (Rec: 04/17/20 09:18 MB [id number]) OP-PT Subjective Patient Comments Patient Comments Pt to have closed manipulation under anesthesia on right knee this , Apr 19. She has noted some warmth in her right knee that her chiropractor and massage therapist commented upon last Thursday. She contacted the surgeon office. Pt reports that she back off exercises but that she had to do chores [place] the farm because she was snowed in. This includes feeding the horses, dragging hoses and shoveling manuer. PT-OP-G Mobility & Gait Start: 03/08/20 14:41 Freq: Status: Active Protocol: Document 03/13/20 09:00 MB (Rec: 03/13/20 13:40 MB [id number]) OP Mobility Evaluation Bed Mobility Rolling Pt uses left leg to lift her right leg onto the mat with left toes and forefoot hooked around the back of right distal leg Transfers Sit to Stand Right leg out in front and heavy UE use OP Gait Assessment Gait Gait Assistance Required: Independent Distance (Feet) 75 Able to Maintain Weight Bearing Status Yes During Gait Assistive Devices Assistive Device Front Wheeled Walker Orthotic/Prosthetic Devices or Brace: Yes Gait Deviations General Gait Pattern Antalgic,Decreased Stride Length,Decreased Feet Clearance,Flexed Trunk Factors Limiting Gait Function Factors Limiting Gait Function Decreased Activity Tolerance, Decreased Strength,Limited Range of Motion,Pain Comments Gait Comments Pt's walker is too short for her upon arrival and PT raises it 2 and she is able to gait train better upright. Initially, she has antalgic gait with little heel strike, push off on toes and right knee flexion and hip flexion and extension on the RLE. After gentle manual work after assessment, pt's step-length, upright and heel strike is better. PT-OP-K Range of Motion Start: 03/08/20 14:41 Freq: Status: Active Protocol: Document 03/13/20 09:00 MB (Rec: 03/13/20 13:40 MB [id number]) Knee Goniometric Range of Motion Knee Left Knee ROM WFL Yes Right Knee ROM WFL No Patient Position Long sitting Flexion Active (degrees) 70 Extension Active (degrees) 8 PT-OP-M Strength Start: 03/08/20 14:41 Freq: Status: Active Protocol: Document 03/13/20 09:00 MB (Rec: 03/13/20 13:40 MB [id number]) Hip Strength Hip Manual Muscle Testing Left Flexion (L2) 5 Normal Abduction 5 Normal Right Comments Deferred hip and knee MMT d/t pt reports of high pain Knee Strength Knee Manual Muscle Testing Left Flexion (S2) 5 Normal Extension (L3) 5 Normal Right Comments MMT deferred d/t high pain at rest and with limited AROM Ankle/Foot Strength Ankle and Foot Manual Muscle Testing Left Dorsiflexion (L4) 5 Normal Inversion 5 Normal Eversion (S1) 5 Normal Right Dorsiflexion (L4) 5 Normal Inversion 5 Normal Eversion (S1) 5 Normal Toe Strength Toe Manual Muscle Testing Left Great Toe Extension 5 Normal Right Great Toe Extension 5 Normal PT-OP-Q Treatments Start: 03/08/20 14:41 Freq: Status: Active Protocol: Document 04/17/20 09:00 MB (Rec: 04/17/20 09:18 MB [id number]) Cardio Equipment Bicycle (Upright) Duration (Minutes) 10 Resistance 5 Seat Position 7 Other Many minutes of partial revolutions before full Manual Therapy Treatment Other Other Manual Treatments Right knee is mildly warm to tough today and her swelling is some better and she is wearing compression. Manual PT today includes lavage behind knee, calf, vastus lateralis and rectus femoris. PT-OP-R Modalities Start: 03/08/20 14:41 Freq: Status: Active Protocol: Document 04/10/20 08:56 SP (Rec: 04/10/20 11:35 SP [id number]) Hot Pack/Cold Pack Treatment CP Location knee A/P Patient Position Supine Treatment Duration (minutes) 10 Patient Tolerance Good Comments good tolerance PT-OP-T Assessment and Plan Start: 03/08/20 14:41 Freq: Status: Active Protocol: Document 04/17/20 09:00 MB (Rec: 04/17/20 09:18 MB [id number]) Physical Therapy Assessment Rehab Potential Rehabilitation Potential Good Evaluation Complexity Number of Personal Factors/Comorbidities 1-2 Number of Body Systems Impaired 1-2 Clinical Presentation at Evaluation Stable Impairments Impairments Activity Tolerance,Balance, Edema,Functional Activities, Functional Mobility,Gait, Integument,Pain,Posture,ROM, Soft Tissue Mobility,Strength, Transfers Other Impairments Pt denies paresthesias and she wears light thigh high compression hose today. She has post-op bandage right knee , no visible ecchymosis through the hose and standard post-op edema Goals 6 Investigations Chief Goal (LTG) Pt will present with improved right knee AROM equal to the left to improve sit to stands and gait pattern by 06/01/2020. 04/03/20: AAROM right knee flexion on bike to 92 deg today, an improvement overall and carryover from yesterday. LTG Duration 8 weeks 5 Snf Goal (LTG) Pt will perform at least 20 reps of sit to stands without UE support in 30 sec to reflect improved functional transfers and strength by 2020. 04/03/20: Pt performs 11 reps sit to stand without UE support this date. LTG Duration 8 weeks 4 Investigations Chief Goal (LTG) Pt will perform progressive HEP with I including range of motion, strengthening, flexibility, balance and gait exercises to improve overall functional strength by 2020. 04/03/20: Pt is performing exercises everyday including flexion stretch on step, straight leg raises, heel slide sitting and supine, extension dangling, hamstring stretch with APs, Alexander stretch. LTG Duration 8 weeks 3 Investigations Chief Goal (LTG) Pt will ascend and descend 3 steps with receiprocal gait and no AD or rail to allow safe home entrance and exit by 06/01/2020. 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 04/03/20: Pt gait trains 1174 feet in 6 minutes without AD. Pt favors right leg with 4/10 pain with toe push off and decreased push off and heel strike and full knee extension and flexion with gait. LTG Duration 8 weeks 1 Snf Goal (LTG) Pt will present with an improved LEF score to reflect no more than 20% impairment to prepare to return to horse and dog ownership tasks by 06/01. 04/03/20: LEF score reflects 62. 5% impairment, much improvement since evaluation LTG Duration 8 weeks Assessment Summary Assessment Pain, warmth and swelling are better today, perhaps d/t not over exercising over the weekend. Will con't to monitor her response to manual and exercise interventions. She con't with lump area medial distal posterior right knee. Physical Therapy Plan Frequency and Duration Frequency of Treatment 3x/Week Duration of Treatment 8 weeks Plan of Care Start Date 04/03/20 Plan of Care End Date 06/02/19 Therapeutic Interventions Therapeutic Interventions Balance Training,Canalithic Repositioning,Gait Training, Home Exercise Program,Joint Mobilizations,Manual Therapy, Neuromuscular Re-education, Patient/Caregiver Education, Self-Care/Home Management,Soft Tissue Mobilization,Taping, Therapeutic Activities, Therapeutic Exercises Modalities Cold Pack/Ice Massage,Electric Stimulation,Hot Packs, Ultrasound Next Visit Focus/Plan Next Note Type Treatment Note Next Visit Plan Upright bike for range, review hook lying clam with band to help with abduction and add bridge and re-check gait, ongoing PNF and hip extension and abduction to help with gait form.
--- NOTE | 2020-04-18 11:30 | PT.OTN ---
Current Diagnoses Unilateral primary osteoarthritis, right knee (04/18/20) Encounter for other orthopedic aftercare (04/18/20) Physical Therapy Treatment Note PT-OP-A Visit Information Start: 03/08/20 14:41 Freq: Status: Active Protocol: Document 04/18/20 09:11 [facility] (Rec: 04/18/20 11:30 [facility] [id number]) Out-Patient Physical Therapy Visit Information Visit Information Visit Type Treatment Note Visit Start Time 09:05 Visit Stop Time 09:45 Total Visit Minutes 40 Visit Number 14 Number of [employer] Visits 0 PT-OP-B Current Condition Start: 03/08/20 14:41 Freq: Status: Active Protocol: Document 03/13/20 09:00 MB (Rec: 03/13/20 09:12 MB [id number]) Current Condition History of Current Condition Onset Date 03/07/20 Current Complaints Right knee pain and weakness History of Current Condition Pt is s/p right TKR 03/07/20. Pt has a history of B knee OA, left thumb arthritis, neck arthritis and back arthritis and injections in neck and back. Pt sees chiroprator 2x/ month and massage therapist 1x /month for her neck and back. She has also had work done on her TMJ. She has a thyroid issue. Pt is very active, rides horses and does agility with her dog. Pt reports 7-8/10 pain in her right knee, lateral and posterior leg. The greatest pain is in her groin. She is wearing compression. Prior Treatments and Tests R TKR, back and neck injections, PT in the past. She had a good experience with PT in the past. Treatment Goals Patient/Caregiver Goals I want to get back to riding and pickle ball. PT-OP-C Subjective Start: 03/08/20 14:41 Freq: Status: Active Protocol: Document 04/18/20 09:11 [facility] (Rec: 04/18/20 11:30 [facility] [id number]) OP-PT Subjective Patient Comments Patient Comments Pt gets manipulation tomorrow. She has been working to get her swelling down. PT-OP-G Mobility & Gait Start: 03/08/20 14:41 Freq: Status: Active Protocol: Document 03/13/20 09:00 MB (Rec: 03/13/20 13:40 MB [id number]) OP Mobility Evaluation Bed Mobility Rolling Pt uses left leg to lift her right leg onto the mat with left toes and forefoot hooked around the back of right distal leg Transfers Sit to Stand Right leg out in front and heavy UE use OP Gait Assessment Gait Gait Assistance Required: Independent Distance (Feet) 75 Able to Maintain Weight Bearing Status Yes During Gait Assistive Devices Assistive Device Front Wheeled Walker Orthotic/Prosthetic Devices or Brace: Yes Gait Deviations General Gait Pattern Antalgic,Decreased Stride Length,Decreased Feet Clearance,Flexed Trunk Factors Limiting Gait Function Factors Limiting Gait Function Decreased Activity Tolerance, Decreased Strength,Limited Range of Motion,Pain Comments Gait Comments Pt's walker is too short for her upon arrival and PT raises it 2 and she is able to gait train better upright. Initially, she has antalgic gait with little heel strike, push off on toes and right knee flexion and hip flexion and extension on the RLE. After gentle manual work after assessment, pt's step-length, upright and heel strike is better. PT-OP-K Range of Motion Start: 03/08/20 14:41 Freq: Status: Active Protocol: Document 03/13/20 09:00 MB (Rec: 03/13/20 13:40 MB [id number]) Knee Goniometric Range of Motion Knee Left Knee ROM WFL Yes Right Knee ROM WFL No Patient Position Long sitting Flexion Active (degrees) 70 Extension Active (degrees) 8 PT-OP-M Strength Start: 03/08/20 14:41 Freq: Status: Active Protocol: Document 03/13/20 09:00 MB (Rec: 03/13/20 13:40 MB [id number]) Hip Strength Hip Manual Muscle Testing Left Flexion (L2) 5 Normal Abduction 5 Normal Right Comments Deferred hip and knee MMT d/t pt reports of high pain Knee Strength Knee Manual Muscle Testing Left Flexion (S2) 5 Normal Extension (L3) 5 Normal Right Comments MMT deferred d/t high pain at rest and with limited AROM Ankle/Foot Strength Ankle and Foot Manual Muscle Testing Left Dorsiflexion (L4) 5 Normal Inversion 5 Normal Eversion (S1) 5 Normal Right Dorsiflexion (L4) 5 Normal Inversion 5 Normal Eversion (S1) 5 Normal Toe Strength Toe Manual Muscle Testing Left Great Toe Extension 5 Normal Right Great Toe Extension 5 Normal PT-OP-Q Treatments Start: 03/08/20 14:41 Freq: Status: Active Protocol: Document 04/18/20 09:11 [facility] (Rec: 04/18/20 11:30 [facility] [id number]) Cardio Equipment Bicycle (Upright) Duration (Minutes) 10 Resistance 1-2 Seat Position 7 Other 3 min rocking back/forth Manual Therapy Treatment Soft Tissue Mobilization HS/calf Body Location R Mobilization Type Rolling,Strumming,Sustained Pressure Intensity/Depth Moderate Body Position Supine Comments in HS stretch positionactive knee ext Joint Mobilizations Patellofemoral Joint R Direction med, sup, inf Grade III Body Position Sitting Comments manual PT-OP-R Modalities Start: 03/08/20 14:41 Freq: Status: Active Protocol: Document 04/10/20 08:56 SP (Rec: 04/10/20 11:35 SP [id number]) Hot Pack/Cold Pack Treatment CP Location knee A/P Patient Position Supine Treatment Duration (minutes) 10 Patient Tolerance Good Comments good tolerance PT-OP-T Assessment and Plan Start: 03/08/20 14:41 Freq: Status: Active Protocol: Document 04/18/20 09:11 [facility] (Rec: 04/18/20 11:30 [facility] [id number]) Physical Therapy Assessment Goals 6 Assisted Goal (LTG) Pt will present with improved right knee AROM equal to the left to improve sit to stands and gait pattern by 06/01/2020. 04/03/20: AAROM right knee flexion on bike to 92 deg today, an improvement overall and carryover from yesterday. LTG Duration 8 weeks 5 [employer] Worker Goal (LTG) Pt will perform at least 20 reps of sit to stands without UE support in 30 sec to reflect improved functional transfers and strength by 2020. 04/03/20: Pt performs 11 reps sit to stand without UE support this date. LTG Duration 8 weeks 4 Assisted Goal (LTG) Pt will perform progressive HEP with I including range of motion, strengthening, flexibility, balance and gait exercises to improve overall functional strength by 2020. 04/03/20: Pt is performing exercises everyday including flexion stretch on step, straight leg raises, heel slide sitting and supine, extension dangling, hamstring stretch with APs, Alexander stretch. LTG Duration 8 weeks 3 [employer] Worker Goal (LTG) Pt will ascend and descend 3 steps with receiprocal gait and no AD or rail to allow safe home entrance and exit by 06/01/2020. 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 04/03/20: Pt gait trains 1174 feet in 6 minutes without AD. Pt favors right leg with 4/10 pain with toe push off and decreased push off and heel strike and full knee extension and flexion with gait. LTG Duration 8 weeks 1 Assisted Goal (LTG) Pt will present with an improved LEF score to reflect no more than 20% impairment to prepare to return to horse and dog ownership tasks by 06/01. 04/03/20: LEF score reflects 62. 5% impairment, much improvement since evaluation LTG Duration 8 weeks Assessment Summary Assessment Pt cont to have warmth and swelling at knee especially ant which she was instructed to discuss w/physician tomorrow. She had imrpoved patellar mobility along w/ abilityt o knee ext after manual treatment today. Physical Therapy Plan Frequency and Duration Frequency of Treatment 3x/Week Duration of Treatment 8 weeks Plan of Care Start Date 04/03/20 Plan of Care End Date 06/02/19 Next Visit Focus/Plan Next Note Type Re-Evaluation Next Visit Plan Assessment after manipulation
--- NOTE | 2020-04-20 11:24 | PT.OTN ---
Current Diagnoses Unilateral primary osteoarthritis, right knee (04/20/20) Encounter for other orthopedic aftercare (04/20/20) Physical Therapy Treatment Note PT-OP-A Visit Information Start: 03/08/20 14:41 Freq: Status: Active Protocol: Document 04/20/20 09:46 MB (Rec: 04/20/20 10:31 MB [id number]) Out-Patient Physical Therapy Visit Information Visit Information Visit Type Treatment Note Visit Start Time 09:46 Visit Stop Time 10:30 Total Visit Minutes 44 Visit Number 15 Number of RADAR ENGINEER Visits 0 PT-OP-B Current Condition Start: 03/08/20 14:41 Freq: Status: Active Protocol: Document 03/13/20 09:00 MB (Rec: 03/13/20 09:12 MB [id number]) Current Condition History of Current Condition Onset Date 03/07/20 Current Complaints Right knee pain and weakness History of Current Condition Pt is s/p right TKR 03/07/20. Pt has a history of B knee OA, left thumb arthritis, neck arthritis and back arthritis and injections in neck and back. Pt sees chiroprator 2x/ month and massage therapist 1x /month for her neck and back. She has also had work done on her TMJ. She has a thyroid issue. Pt is very active, rides horses and does agility with her dog. Pt reports 7-8/10 pain in her right knee, lateral and posterior leg. The greatest pain is in her groin. She is wearing compression. Prior Treatments and Tests R TKR, back and neck injections, PT in the past. She had a good experience with PT in the past. Treatment Goals Patient/Caregiver Goals I want to get back to riding and pickle ball. PT-OP-C Subjective Start: 03/08/20 14:41 Freq: Status: Active Protocol: Document 04/20/20 09:46 MB (Rec: 04/20/20 10:31 MB [id number]) OP-PT Subjective Patient Comments Patient Comments Pt reports that she had a lot of pain after closed manipulation yesterday. She had to use the cane yesterday. She is using Tylenol and Advil together everyday. PT-OP-G Mobility & Gait Start: 03/08/20 14:41 Freq: Status: Active Protocol: Document 03/13/20 09:00 MB (Rec: 03/13/20 13:40 MB [id number]) OP Mobility Evaluation Bed Mobility Rolling Pt uses left leg to lift her right leg onto the mat with left toes and forefoot hooked around the back of right distal leg Transfers Sit to Stand Right leg out in front and heavy UE use OP Gait Assessment Gait Gait Assistance Required: Independent Distance (Feet) 75 Able to Maintain Weight Bearing Status Yes During Gait Assistive Devices Assistive Device Front Wheeled Walker Orthotic/Prosthetic Devices or Brace: Yes Gait Deviations General Gait Pattern Antalgic,Decreased Stride Length,Decreased Feet Clearance,Flexed Trunk Factors Limiting Gait Function Factors Limiting Gait Function Decreased Activity Tolerance, Decreased Strength,Limited Range of Motion,Pain Comments Gait Comments Pt's walker is too short for her upon arrival and PT raises it 2 and she is able to gait train better upright. Initially, she has antalgic gait with little heel strike, push off on toes and right knee flexion and hip flexion and extension on the RLE. After gentle manual work after assessment, pt's step-length, upright and heel strike is better. PT-OP-K Range of Motion Start: 03/08/20 14:41 Freq: Status: Active Protocol: Document 03/13/20 09:00 MB (Rec: 03/13/20 13:40 MB [id number]) Knee Goniometric Range of Motion Knee Left Knee ROM WFL Yes Right Knee ROM WFL No Patient Position Long sitting Flexion Active (degrees) 70 Extension Active (degrees) 8 PT-OP-M Strength Start: 03/08/20 14:41 Freq: Status: Active Protocol: Document 03/13/20 09:00 MB (Rec: 03/13/20 13:40 MB [id number]) Hip Strength Hip Manual Muscle Testing Left Flexion (L2) 5 Normal Abduction 5 Normal Right Comments Deferred hip and knee MMT d/t pt reports of high pain Knee Strength Knee Manual Muscle Testing Left Flexion (S2) 5 Normal Extension (L3) 5 Normal Right Comments MMT deferred d/t high pain at rest and with limited AROM Ankle/Foot Strength Ankle and Foot Manual Muscle Testing Left Dorsiflexion (L4) 5 Normal Inversion 5 Normal Eversion (S1) 5 Normal Right Dorsiflexion (L4) 5 Normal Inversion 5 Normal Eversion (S1) 5 Normal Toe Strength Toe Manual Muscle Testing Left Great Toe Extension 5 Normal Right Great Toe Extension 5 Normal PT-OP-Q Treatments Start: 03/08/20 14:41 Freq: Status: Active Protocol: Document 04/20/20 09:46 MB (Rec: 04/20/20 10:31 MB [id number]) Cardio Equipment Bicycle (Upright) Duration (Minutes) 7 Resistance 6 Seat Position 7 Other Pt make full revolution first time Therapeutic Exercises Supine Exercises Hook lying clam with band Side bilateral Comments 10 reps, level 1 band AP, HS, GS, hip abduction and adduction Supine Exercise Name HS Side right Comments Cues for toes and knees to ceiling and work on full ext/ flex as available Other Exercises Revised HEP Comments See HEP goal comments for current program today Gait Training Gait Activity Gait without AD Comments 6MWT today with much improved gait distance and valgus, see goal comments today Also see stair training comments today, pt uses B rails and reciprocal pattern, altering pattern with left toes down first with descend PT-OP-R Modalities Start: 03/08/20 14:41 Freq: Status: Active Protocol: Document 04/10/20 08:56 SP (Rec: 04/10/20 11:35 SP [id number]) Hot Pack/Cold Pack Treatment CP Location knee A/P Patient Position Supine Treatment Duration (minutes) 10 Patient Tolerance Good Comments good tolerance PT-OP-T Assessment and Plan Start: 03/08/20 14:41 Freq: Status: Active Protocol: Document 04/20/20 09:46 MB (Rec: 04/20/20 10:31 MB [id number]) Physical Therapy Assessment Rehab Potential Rehabilitation Potential Good Evaluation Complexity Number of Personal Factors/Comorbidities 1-2 Number of Body Systems Impaired 1-2 Clinical Presentation at Evaluation Stable Impairments Impairments Activity Tolerance,Balance, Edema,Functional Activities, Functional Mobility,Gait, Integument,Pain,Posture,ROM, Soft Tissue Mobility,Strength, Transfers Goals 6 Halfway Goal (LTG) Pt will present with improved right knee AROM equal to the left to improve sit to stands and gait pattern by 06/18/2020. 04/20/20: Supine AROM 20-90 deg ; sitting flexion 92 deg. Pt is able to get a full revolution on bike with seat at 7 first try today. After hook lying clam with band supine AROM right knee 15-90 deg LTG Duration 8 weeks 5 Halfway Goal (LTG) Pt will perform at least 20 reps of sit to stands without UE support in 30 sec to reflect improved functional transfers and strength by 06/18. 04/20/20: Pt with right foot forward and performs 13 reps in 30 sec. She reports 4-5/10 right knee pain LTG Duration 8 weeks 4 Radial Drill Press Set Up Operator Goal (LTG) Pt will perform progressive HEP with I including range of motion, strengthening, flexibility, balance and gait exercises to improve overall functional strength by 2020. 04/20/20: Pt to focus on ascend and descend steps with good form and clam in hook lying with band, HS and knee extension right knee LTG Duration 8 weeks 3 Halfway Goal (LTG) Pt will ascend and descend 3 steps with receiprocal gait and no AD or rail to allow safe home entrance and exit by 06/18/2020. 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 04/20/20: Pt gait trains 1430 feet without AD and with reports of 2/10 right knee pain. She presents with better upright, speed and ongoing right knee valgus and decreased heel and toe push off. 9 deg valgus right knee in standing. LTG Duration 8 weeks 1 Radial Drill Press Set Up Operator Goal (LTG) Pt will present with an improved LEF score to reflect no more than 20% impairment to prepare to return to horse and dog ownership tasks by 06/01. 04/20/20: LEF score is 39/80, refecting 51.25% impairment LTG Duration 8 weeks Assessment Summary Assessment Pt s/p closed manipulation under anesthesia last date. She is able to make a full revolution on bike first attempt today and her 6MWT is much improved. Today, standing right knee valgus is also improved to 9 deg and AROM right knee improves in hook lying after she is warmed up and performs hook lying clam with resistance. Will increase PT frequency to 3-5x/wk per surgeon order and con't to monitor what exercises truly help range and function and gait without increasing edema and pain. This is a constant juggle given pt's presentation post-op right TKR. Physical Therapy Plan Frequency and Duration Frequency of Treatment 3-5x/wk Duration of Treatment 8 weeks Plan of Care Start Date 04/20/20 Plan of Care End Date 06/18/20 Therapeutic Interventions Therapeutic Interventions Balance Training,Canalithic Repositioning,Gait Training, Home Exercise Program,Joint Mobilizations,Manual Therapy, Neuromuscular Re-education, Patient/Caregiver Education, Self-Care/Home Management,Soft Tissue Mobilization,Taping, Therapeutic Activities, Therapeutic Exercises Modalities Cold Pack/Ice Massage,Electric Stimulation,Hot Packs, Ultrasound Next Visit Focus/Plan Next Note Type Treatment Note Next Visit Plan Review HEP and practice exercises and check for form
--- NOTE | 2020-04-20 11:26 | PT.OPPOC ---
Physical, Occupational & Speech Therapy At [facility] Current Diagnoses Unilateral primary osteoarthritis, right knee (04/20/20) Encounter for other orthopedic aftercare (04/20/20) Visit Care Team Role Provider Type Antonio Sim MD Primary Care Provider Physician Specialty: Internal Medicine Address: [address] [place] [address], [facility] [address], [place], [address] Email: [email or web address] Gama MD Attending Provider Non-Staff Referring Provider Specialty: Orthopedic Surgery Address: [address] [place] [address], [id number] Email: Plan Of Care PT-OP-T Assessment and Plan Start: 03/08/20 14:41 Freq: Status: Active Protocol: Document 04/20/20 09:46 MB (Rec: 04/20/20 10:31 MB [id number]) Physical Therapy Assessment Rehab Potential Rehabilitation Potential Good Evaluation Complexity Number of Personal Factors/Comorbidities 1-2 Number of Body Systems Impaired 1-2 Clinical Presentation at Evaluation Stable Impairments Impairments Activity Tolerance,Balance, Edema,Functional Activities, Functional Mobility,Gait, Integument,Pain,Posture,ROM, Soft Tissue Mobility,Strength, Transfers Goals 6 Occupational Therapy Assist Goal (LTG) Pt will present with improved right knee AROM equal to the left to improve sit to stands and gait pattern by 06/18/2020. 04/20/20: Supine AROM 20-90 deg ; sitting flexion 92 deg. Pt is able to get a full revolution on bike with seat at 7 first try today. After hook lying clam with band supine AROM right knee 15-90 deg LTG Duration 8 weeks 5 Fpc Goal (LTG) Pt will perform at least 20 reps of sit to stands without UE support in 30 sec to reflect improved functional transfers and strength by 06/18. 04/20/20: Pt with right foot forward and performs 13 reps in 30 sec. She reports 4-5/10 right knee pain LTG Duration 8 weeks 4 Occupational Therapy Assist Goal (LTG) Pt will perform progressive HEP with I including range of motion, strengthening, flexibility, balance and gait exercises to improve overall functional strength by 2020. 04/20/20: Pt to focus on ascend and descend steps with good form and clam in hook lying with band, HS and knee extension right knee LTG Duration 8 weeks 3 Fpc Goal (LTG) Pt will ascend and descend 3 steps with receiprocal gait and no AD or rail to allow safe home entrance and exit by 06/18/2020. 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 04/20/20: Pt gait trains 1430 feet without AD and with reports of 2/10 right knee pain. She presents with better upright, speed and ongoing right knee valgus and decreased heel and toe push off. 9 deg valgus right knee in standing. LTG Duration 8 weeks 1 Fpc Goal (LTG) Pt will present with an improved LEF score to reflect no more than 20% impairment to prepare to return to horse and dog ownership tasks by 06/01. 04/20/20: LEF score is 39/80, refecting 51.25% impairment LTG Duration 8 weeks Assessment Summary Assessment Pt s/p closed manipulation under anesthesia last date. She is able to make a full revolution on bike first attempt today and her 6MWT is much improved. Today, standing right knee valgus is also improved to 9 deg and AROM right knee improves in hook lying after she is warmed up and performs hook lying clam with resistance. Will increase PT frequency to 3-5x/wk per surgeon order and con't to monitor what exercises truly help range and function and gait without increasing edema and pain. This is a constant juggle given pt's presentation post-op right TKR. Physical Therapy Plan Frequency and Duration Frequency of Treatment 3-5x/wk Duration of Treatment 8 weeks Plan of Care Start Date 04/20/20 Plan of Care End Date 06/18/20 Therapeutic Interventions Therapeutic Interventions Balance Training,Canalithic Repositioning,Gait Training, Home Exercise Program,Joint Mobilizations,Manual Therapy, Neuromuscular Re-education, Patient/Caregiver Education, Self-Care/Home Management,Soft Tissue Mobilization,Taping, Therapeutic Activities, Therapeutic Exercises Modalities Cold Pack/Ice Massage,Electric Stimulation,Hot Packs, Ultrasound Next Visit Focus/Plan Next Note Type Treatment Note Next Visit Plan Review HEP and practice exercises and check for form Plan of Care Dates Plan of Care Start Date 04/20/20 Plan of Care End Date 06/18/20 Electronically Signed by: Mariela Tavarez, PT 04/20/20 1891 Please Sign and Return: I have reviewed this Plan of Care and certify that the skilled therapy services above are required to meet the patient?s needs. Physician Signature Date Printed Name and Credentials Clinical Instructor Signature Printed Name and Credentials
--- NOTE | 2020-04-23 10:47 | PT.OTN ---
Current Diagnoses Unilateral primary osteoarthritis, right knee (04/23/20) Encounter for other orthopedic aftercare (04/23/20) Physical Therapy Treatment Note PT-OP-A Visit Information Start: 03/08/20 14:41 Freq: Status: Active Protocol: Document 04/23/20 09:47 SP (Rec: 04/23/20 11:22 SP [id number]) Out-Patient Physical Therapy Visit Information Visit Information Visit Type Treatment Note Visit Note ACRRIE Potts attended tx. Visit Start Time 09:47 Visit Stop Time 10:47 Total Visit Minutes 60 Visit Number 16 Number of COAL DELIVERER Visits 1 PT-OP-B Current Condition Start: 03/08/20 14:41 Freq: Status: Active Protocol: Document 03/13/20 09:00 MB (Rec: 03/13/20 09:12 MB [id number]) Current Condition History of Current Condition Onset Date 03/07/20 Current Complaints Right knee pain and weakness History of Current Condition Pt is s/p right TKR 03/07/20. Pt has a history of B knee OA, left thumb arthritis, neck arthritis and back arthritis and injections in neck and back. Pt sees chiroprator 2x/ month and massage therapist 1x /month for her neck and back. She has also had work done on her TMJ. She has a thyroid issue. Pt is very active, rides horses and does agility with her dog. Pt reports 7-8/10 pain in her right knee, lateral and posterior leg. The greatest pain is in her groin. She is wearing compression. Prior Treatments and Tests R TKR, back and neck injections, PT in the past. She had a good experience with PT in the past. Treatment Goals Patient/Caregiver Goals I want to get back to riding and pickle ball. PT-OP-C Subjective Start: 03/08/20 14:41 Freq: Status: Active Protocol: Document 04/23/20 09:47 SP (Rec: 04/23/20 11:22 SP [id number]) OP-PT Subjective Patient Comments Patient Comments Pt reported has been having medial distal thigh pain 7-8/ 10 with ROM exercises, my inner thigh is very tight and don't feel gaining range passed 93 deg. Patient Reported Progress Same PT-OP-G Mobility & Gait Start: 03/08/20 14:41 Freq: Status: Active Protocol: Document 03/13/20 09:00 MB (Rec: 03/13/20 13:40 MB [id number]) OP Mobility Evaluation Bed Mobility Rolling Pt uses left leg to lift her right leg onto the mat with left toes and forefoot hooked around the back of right distal leg Transfers Sit to Stand Right leg out in front and heavy UE use OP Gait Assessment Gait Gait Assistance Required: Independent Distance (Feet) 75 Able to Maintain Weight Bearing Status Yes During Gait Assistive Devices Assistive Device Front Wheeled Walker Orthotic/Prosthetic Devices or Brace: Yes Gait Deviations General Gait Pattern Antalgic,Decreased Stride Length,Decreased Feet Clearance,Flexed Trunk Factors Limiting Gait Function Factors Limiting Gait Function Decreased Activity Tolerance, Decreased Strength,Limited Range of Motion,Pain Comments Gait Comments Pt's walker is too short for her upon arrival and PT raises it 2 and she is able to gait train better upright. Initially, she has antalgic gait with little heel strike, push off on toes and right knee flexion and hip flexion and extension on the RLE. After gentle manual work after assessment, pt's step-length, upright and heel strike is better. PT-OP-K Range of Motion Start: 03/08/20 14:41 Freq: Status: Active Protocol: Document 03/13/20 09:00 MB (Rec: 03/13/20 13:40 MB [id number]) Knee Goniometric Range of Motion Knee Left Knee ROM WFL Yes Right Knee ROM WFL No Patient Position Long sitting Flexion Active (degrees) 70 Extension Active (degrees) 8 PT-OP-M Strength Start: 03/08/20 14:41 Freq: Status: Active Protocol: Document 03/13/20 09:00 MB (Rec: 03/13/20 13:40 MB [id number]) Hip Strength Hip Manual Muscle Testing Left Flexion (L2) 5 Normal Abduction 5 Normal Right Comments Deferred hip and knee MMT d/t pt reports of high pain Knee Strength Knee Manual Muscle Testing Left Flexion (S2) 5 Normal Extension (L3) 5 Normal Right Comments MMT deferred d/t high pain at rest and with limited AROM Ankle/Foot Strength Ankle and Foot Manual Muscle Testing Left Dorsiflexion (L4) 5 Normal Inversion 5 Normal Eversion (S1) 5 Normal Right Dorsiflexion (L4) 5 Normal Inversion 5 Normal Eversion (S1) 5 Normal Toe Strength Toe Manual Muscle Testing Left Great Toe Extension 5 Normal Right Great Toe Extension 5 Normal PT-OP-Q Treatments Start: 03/08/20 14:41 Freq: Status: Active Protocol: Document 04/23/20 09:47 SP (Rec: 04/23/20 11:22 SP [id number]) Cardio Equipment Bicycle (Upright) Duration (Minutes) 8 Resistance 6 Seat Position 7 Other Pt make full revolution f/b Therapeutic Exercises Supine Exercises Hook lying clam with band Supine Exercise Name review HEP Side bilateral Resistance Tb #1 Equipment Used 1/2 foam roll for DF range relaxed pos Reps/Minutes x10 Comments improved decreased calf recruitment w/foam roller DF support, cued hip abd R knee flexion over swill ball Side right Resistance AAROM Equipment Used 55cm luxembourger ball Reps/Minutes x6 approx - 93deg Comments tactile assist for ankle mobility Alexander stretch Side right Resistance AAROM knee flexion Equipment Used strap to assist inhibit quad/ HS Reps/Minutes 30 Comments good relaxed but same medial quad tightness, cued relax ankle Prone Exercises AAROM R knee flexion w/ strap Prone Exercise Name same medial distal quad tightness/ discomfort Side right Equipment Used strap Reps/Minutes 20 sec hold Comments therapist cued and provided awareness of knee alignment, tight over quad Sitting Exercises R knee flexion over luxembourger ball Side right Resistance AAROM Equipment Used 55cm luxembourger ball, elevated table Reps/Minutes 2x5 Comments occasional no hip hike, assisted facilitation ankle DF during knee flexion Manual Therapy Treatment Soft Tissue Mobilization medial R quad Body Location supine Mobilization Type Myofascial Release Intensity/Depth Moderate Body Position Hooklying Comments proximal elongation glide w/ knee flexion on shuttle recovery. scar mob Body Location R Mobilization Type Other Intensity/Depth Superficial Body Position Sitting Comments long sitting manual and self instruction (B fingers either side scar sup/inf/ med/ lat, twist) HS/calf Body Location R Mobilization Type Rolling,Strumming,Sustained Pressure Intensity/Depth Moderate Body Position Supine Comments in HS stretch positionactive knee ext Joint Mobilizations tibial femoral AP, AP Joint R Grade II Body Position Supine Comments extended and various ranges into flexion to allow femur glide on tibia for assisted ROM Manual Traction contract relax knee flexion/ ext Details R knee Body Position Prone Reps/Duration 5 sec hold x6 Comments resist gentle knee extension then PROM into flexion, improved decreased HS compenstations- pt stated able to relax more. approx 93deg ROM knee flexion PT-OP-R Modalities Start: 03/08/20 14:41 Freq: Status: Active Protocol: Document 04/23/20 09:47 SP (Rec: 04/23/20 11:22 SP [id number]) Hot Pack/Cold Pack Treatment ice cup Location R medial quad mid to distal Patient Position Hooklying Treatment Duration (minutes) 5 Patient Tolerance Good Comments applied to assist decrease medial quad/ adductor pain- minimal help- applied while on shuttle press pre mobility. cryocuff Location R knee Patient Position Hooklying Treatment Duration (minutes) 10 Patient Tolerance Good Comments good feedback PT-OP-T Assessment and Plan Start: 03/08/20 14:41 Freq: Status: Active Protocol: Document 04/23/20 09:47 SP (Rec: 04/23/20 11:22 SP [id number]) Physical Therapy Assessment Goals 6 Half-Way Goal (LTG) Pt will present with improved right knee AROM equal to the left to improve sit to stands and gait pattern by 06/18/2020. 04/23/20: sitting flexion 93 deg over ball. LTG Duration 8 weeks 5 Half-Way Goal (LTG) Pt will perform at least 20 reps of sit to stands without UE support in 30 sec to reflect improved functional transfers and strength by 06/18. 04/20/20: Pt with right foot forward and performs 13 reps in 30 sec. She reports 4-5/10 right knee pain LTG Duration 8 weeks 4 Electrode Cleaner Goal (LTG) Pt will perform progressive HEP with I including range of motion, strengthening, flexibility, balance and gait exercises to improve overall functional strength by 2020. 04/20/20: clam in hook lying with band & 1/2 foam roll for DF inhibit calf pos, Heel slide and knee extension right knee, alexander stretch w/ gait belt assist feels most relaxed but same medial distal quad discomfort/pain/tightness. LTG Duration 8 weeks 3 Electrode Cleaner Goal (LTG) Pt will ascend and descend 3 steps with receiprocal gait and no AD or rail to allow safe home entrance and exit by 06/18/2020. 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 04/20/20: Pt gait trains 1430 feet without AD and with reports of 2/10 right knee pain. She presents with better upright, speed and ongoing right knee valgus and decreased heel and toe push off. 9 deg valgus right knee in standing. LTG Duration 8 weeks 1 Half-Way Goal (LTG) Pt will present with an improved LEF score to reflect no more than 20% impairment to prepare to return to horse and dog ownership tasks by 06/01. 04/20/20: LEF score is 39/80, refecting 51.25% impairment LTG Duration 8 weeks Assessment Summary Assessment Tx focused on R knee AAROM flexion/ ext with use of contract relax w/ inhibit of calf, quad, HS in prone and alexander stretch in supine, improved and pt responded most comfortable pos during alexander stretch w/ strap. Pt didn't make significant gains in ROM 93deg flexion but trying her best. Pt commented no significant change in pain or tightness in medial quad end of tx. Physical Therapy Plan Frequency and Duration Frequency of Treatment 3-5x/wk Duration of Treatment 8 weeks Plan of Care Start Date 04/20/20 Plan of Care End Date 06/18/20 Therapeutic Interventions Therapeutic Interventions Balance Training,Canalithic Repositioning,Gait Training, Home Exercise Program,Joint Mobilizations,Manual Therapy, Neuromuscular Re-education, Patient/Caregiver Education, Self-Care/Home Management,Soft Tissue Mobilization,Taping, Therapeutic Activities, Therapeutic Exercises Modalities Cold Pack/Ice Massage,Electric Stimulation,Hot Packs, Ultrasound Next Visit Focus/Plan Next Note Type Treatment Note Next Visit Plan Assess response to manual, contract/relax inhibition in different positions to gain ROM. Continue per PT's POC: Review HEP and practice exercises and check for form
--- NOTE | 2020-04-24 09:51 | PT.OTN ---
Current Diagnoses Unilateral primary osteoarthritis, right knee (04/24/20) Encounter for other orthopedic aftercare (04/24/20) Physical Therapy Treatment Note PT-OP-A Visit Information Start: 03/08/20 14:41 Freq: Status: Active Protocol: Document 04/24/20 09:01 MB (Rec: 04/24/20 09:45 MB [id number]) Out-Patient Physical Therapy Visit Information Visit Information Visit Type Treatment Note Visit Start Time 09:01 Visit Stop Time 09:45 Total Visit Minutes 44 Visit Number 17 Number of ENVIRONMENTAL SCIENCE INSTRUCTOR Visits 0 PT-OP-B Current Condition Start: 03/08/20 14:41 Freq: Status: Active Protocol: Document 03/13/20 09:00 MB (Rec: 03/13/20 09:12 MB [id number]) Current Condition History of Current Condition Onset Date 03/07/20 Current Complaints Right knee pain and weakness History of Current Condition Pt is s/p right TKR 03/07/20. Pt has a history of B knee OA, left thumb arthritis, neck arthritis and back arthritis and injections in neck and back. Pt sees chiroprator 2x/ month and massage therapist 1x /month for her neck and back. She has also had work done on her TMJ. She has a thyroid issue. Pt is very active, rides horses and does agility with her dog. Pt reports 7-8/10 pain in her right knee, lateral and posterior leg. The greatest pain is in her groin. She is wearing compression. Prior Treatments and Tests R TKR, back and neck injections, PT in the past. She had a good experience with PT in the past. Treatment Goals Patient/Caregiver Goals I want to get back to riding and pickle ball. PT-OP-C Subjective Start: 03/08/20 14:41 Freq: Status: Active Protocol: Document 04/24/20 09:01 MB (Rec: 04/24/20 09:45 MB [id number]) OP-PT Subjective Patient Comments Patient Comments I was upset. Pt reports frustration with process PT-OP-G Mobility & Gait Start: 03/08/20 14:41 Freq: Status: Active Protocol: Document 03/13/20 09:00 MB (Rec: 03/13/20 13:40 MB [id number]) OP Mobility Evaluation Bed Mobility Rolling Pt uses left leg to lift her right leg onto the mat with left toes and forefoot hooked around the back of right distal leg Transfers Sit to Stand Right leg out in front and heavy UE use OP Gait Assessment Gait Gait Assistance Required: Independent Distance (Feet) 75 Able to Maintain Weight Bearing Status Yes During Gait Assistive Devices Assistive Device Front Wheeled Walker Orthotic/Prosthetic Devices or Brace: Yes Gait Deviations General Gait Pattern Antalgic,Decreased Stride Length,Decreased Feet Clearance,Flexed Trunk Factors Limiting Gait Function Factors Limiting Gait Function Decreased Activity Tolerance, Decreased Strength,Limited Range of Motion,Pain Comments Gait Comments Pt's walker is too short for her upon arrival and PT raises it 2 and she is able to gait train better upright. Initially, she has antalgic gait with little heel strike, push off on toes and right knee flexion and hip flexion and extension on the RLE. After gentle manual work after assessment, pt's step-length, upright and heel strike is better. PT-OP-K Range of Motion Start: 03/08/20 14:41 Freq: Status: Active Protocol: Document 03/13/20 09:00 MB (Rec: 03/13/20 13:40 MB [id number]) Knee Goniometric Range of Motion Knee Left Knee ROM WFL Yes Right Knee ROM WFL No Patient Position Long sitting Flexion Active (degrees) 70 Extension Active (degrees) 8 PT-OP-M Strength Start: 03/08/20 14:41 Freq: Status: Active Protocol: Document 03/13/20 09:00 MB (Rec: 03/13/20 13:40 MB [id number]) Hip Strength Hip Manual Muscle Testing Left Flexion (L2) 5 Normal Abduction 5 Normal Right Comments Deferred hip and knee MMT d/t pt reports of high pain Knee Strength Knee Manual Muscle Testing Left Flexion (S2) 5 Normal Extension (L3) 5 Normal Right Comments MMT deferred d/t high pain at rest and with limited AROM Ankle/Foot Strength Ankle and Foot Manual Muscle Testing Left Dorsiflexion (L4) 5 Normal Inversion 5 Normal Eversion (S1) 5 Normal Right Dorsiflexion (L4) 5 Normal Inversion 5 Normal Eversion (S1) 5 Normal Toe Strength Toe Manual Muscle Testing Left Great Toe Extension 5 Normal Right Great Toe Extension 5 Normal PT-OP-Q Treatments Start: 03/08/20 14:41 Freq: Status: Active Protocol: Document 04/24/20 09:01 MB (Rec: 04/24/20 09:45 MB [id number]) Gym Equipment Shuttle Recovery Bilateral Squats Resistance 72 lb, level 1 band around knees Reps/Time 30 reps x3 Therapeutic Exercises Supine Exercises Pelvic realignment exercises Side bilateral Comments 5 reps all exercises, 3 sec hold each Hook lying clam with band Comments 10 reps, toes up, level 1 band Alexander stretch Side right Comments 30 sec today Gait Training Gait Activity Gait without AD Comments Pt walks with increased valgus right knee and decreased toe off and heel strike and functionally longer right leg, multiple gait trials before and after exercises and gait does not improve after shuttle Manual Therapy Treatment Other Other Manual Treatments Pt con't with yellow bruise medial proximal right leg and edema in that area and over the knee. PT stays off this area as a result and palpated proximal adductors. B KT for edema 2 pieces medial proximal right knee with 4 legs cut to help with edema PT-OP-R Modalities Start: 03/08/20 14:41 Freq: Status: Active Protocol: Document 04/23/20 09:47 SP (Rec: 04/23/20 11:22 SP [id number]) Hot Pack/Cold Pack Treatment ice cup Location R medial quad mid to distal Patient Position Hooklying Treatment Duration (minutes) 5 Patient Tolerance Good Comments applied to assist decrease medial quad/ adductor pain- minimal help- applied while on shuttle press pre mobility. cryocuff Location R knee Patient Position Hooklying Treatment Duration (minutes) 10 Patient Tolerance Good Comments good feedback PT-OP-T Assessment and Plan Start: 03/08/20 14:41 Freq: Status: Active Protocol: Document 04/24/20 09:01 MB (Rec: 04/24/20 09:45 MB [id number]) Physical Therapy Assessment Rehab Potential Rehabilitation Potential Good Evaluation Complexity Number of Personal Factors/Comorbidities 1-2 Number of Body Systems Impaired 1-2 Clinical Presentation at Evaluation Stable Impairments Impairments Activity Tolerance,Balance, Edema,Functional Activities, Functional Mobility,Gait, Integument,Pain,Posture,ROM, Soft Tissue Mobility,Strength, Transfers Goals 6 Fdc Goal (LTG) Pt will present with improved right knee AROM equal to the left to improve sit to stands and gait pattern by 06/18/2020. 04/20/20: Supine AROM 20-90 deg ; sitting flexion 92 deg. Pt is able to get a full revolution on bike with seat at 7 first try today. After hook lying clam with band supine AROM right knee 15-90 deg LTG Duration 8 weeks 5 Fdc Goal (LTG) Pt will perform at least 20 reps of sit to stands without UE support in 30 sec to reflect improved functional transfers and strength by 06/18. 04/20/20: Pt with right foot forward and performs 13 reps in 30 sec. She reports 4-5/10 right knee pain LTG Duration 8 weeks 4 Fdc Goal (LTG) Pt will perform progressive HEP with I including range of motion, strengthening, flexibility, balance and gait exercises to improve overall functional strength by 2020. 04/20/20: Pt to focus on ascend and descend steps with good form and clam in hook lying with band, HS and knee extension right knee LTG Duration 8 weeks 3 Fdc Goal (LTG) Pt will ascend and descend 3 steps with receiprocal gait and no AD or rail to allow safe home entrance and exit by 06/18/2020. 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 04/20/20: Pt gait trains 1430 feet without AD and with reports of 2/10 right knee pain. She presents with better upright, speed and ongoing right knee valgus and decreased heel and toe push off. 9 deg valgus right knee in standing. LTG Duration 8 weeks 1 Fdc Goal (LTG) Pt will present with an improved LEF score to reflect no more than 20% impairment to prepare to return to horse and dog ownership tasks by 06/01. 04/20/20: LEF score is 39/80, refecting 51.25% impairment LTG Duration 8 weeks Assessment Summary Assessment Focused on hip abduction engagement with band around knees and toes upward. Con't to keep the PFs out of engagement. Ed pt to stop heel raises. Pt con't to have discouragement about medial right knee discomfort and decreased right knee flexion and extension. Con't per plan below. Physical Therapy Plan Frequency and Duration Frequency of Treatment 3-5x/wk Duration of Treatment 8 weeks Plan of Care Start Date 04/20/20 Plan of Care End Date 06/18/20 Therapeutic Interventions Therapeutic Interventions Balance Training,Canalithic Repositioning,Gait Training, Home Exercise Program,Joint Mobilizations,Manual Therapy, Neuromuscular Re-education, Patient/Caregiver Education, Self-Care/Home Management,Soft Tissue Mobilization,Taping, Therapeutic Activities, Therapeutic Exercises Modalities Cold Pack/Ice Massage,Electric Stimulation,Hot Packs, Ultrasound Next Visit Focus/Plan Next Note Type Treatment Note Next Visit Plan Focus with toes up for exercises (shuttle, hook lying exercises). When sees primary PT next time: Counterstrain. Progress hook lying abduction such as with bridging, con't to assess the right adductors. Consider ankle DF and eversion with band in sitting
--- NOTE | 2020-04-25 08:15 | PT.OTN ---
Current Diagnoses Unilateral primary osteoarthritis, right knee (04/25/20) Encounter for other orthopedic aftercare (04/25/20) Physical Therapy Treatment Note PT-OP-A Visit Information Start: 03/08/20 14:41 Freq: Status: Active Protocol: Document 04/25/20 07:32 MB (Rec: 04/25/20 08:14 MB [id number]) Out-Patient Physical Therapy Visit Information Visit Information Visit Type Treatment Note Visit Start Time 07:32 Visit Stop Time 08:15 Total Visit Minutes 43 Visit Number 18 PT-OP-B Current Condition Start: 03/08/20 14:41 Freq: Status: Active Protocol: Document 03/13/20 09:00 MB (Rec: 03/13/20 09:12 MB [id number]) Current Condition History of Current Condition Onset Date 03/07/20 Current Complaints Right knee pain and weakness History of Current Condition Pt is s/p right TKR 03/07/20. Pt has a history of B knee OA, left thumb arthritis, neck arthritis and back arthritis and injections in neck and back. Pt sees chiroprator 2x/ month and massage therapist 1x /month for her neck and back. She has also had work done on her TMJ. She has a thyroid issue. Pt is very active, rides horses and does agility with her dog. Pt reports 7-8/10 pain in her right knee, lateral and posterior leg. The greatest pain is in her groin. She is wearing compression. Prior Treatments and Tests R TKR, back and neck injections, PT in the past. She had a good experience with PT in the past. Treatment Goals Patient/Caregiver Goals I want to get back to riding and pickle ball. PT-OP-C Subjective Start: 03/08/20 14:41 Freq: Status: Active Protocol: Document 04/25/20 07:32 MB (Rec: 04/25/20 08:14 MB [id number]) OP-PT Subjective Patient Comments Patient Comments I did agility training with my dog yesterday. I was a little sore last night but it felt a little better today. The tape stayed on. PT-OP-G Mobility & Gait Start: 03/08/20 14:41 Freq: Status: Active Protocol: Document 03/13/20 09:00 MB (Rec: 03/13/20 13:40 MB [id number]) OP Mobility Evaluation Bed Mobility Rolling Pt uses left leg to lift her right leg onto the mat with left toes and forefoot hooked around the back of right distal leg Transfers Sit to Stand Right leg out in front and heavy UE use OP Gait Assessment Gait Gait Assistance Required: Independent Distance (Feet) 75 Able to Maintain Weight Bearing Status Yes During Gait Assistive Devices Assistive Device Front Wheeled Walker Orthotic/Prosthetic Devices or Brace: Yes Gait Deviations General Gait Pattern Antalgic,Decreased Stride Length,Decreased Feet Clearance,Flexed Trunk Factors Limiting Gait Function Factors Limiting Gait Function Decreased Activity Tolerance, Decreased Strength,Limited Range of Motion,Pain Comments Gait Comments Pt's walker is too short for her upon arrival and PT raises it 2 and she is able to gait train better upright. Initially, she has antalgic gait with little heel strike, push off on toes and right knee flexion and hip flexion and extension on the RLE. After gentle manual work after assessment, pt's step-length, upright and heel strike is better. PT-OP-K Range of Motion Start: 03/08/20 14:41 Freq: Status: Active Protocol: Document 03/13/20 09:00 MB (Rec: 03/13/20 13:40 MB [id number]) Knee Goniometric Range of Motion Knee Left Knee ROM WFL Yes Right Knee ROM WFL No Patient Position Long sitting Flexion Active (degrees) 70 Extension Active (degrees) 8 PT-OP-M Strength Start: 03/08/20 14:41 Freq: Status: Active Protocol: Document 03/13/20 09:00 MB (Rec: 03/13/20 13:40 MB [id number]) Hip Strength Hip Manual Muscle Testing Left Flexion (L2) 5 Normal Abduction 5 Normal Right Comments Deferred hip and knee MMT d/t pt reports of high pain Knee Strength Knee Manual Muscle Testing Left Flexion (S2) 5 Normal Extension (L3) 5 Normal Right Comments MMT deferred d/t high pain at rest and with limited AROM Ankle/Foot Strength Ankle and Foot Manual Muscle Testing Left Dorsiflexion (L4) 5 Normal Inversion 5 Normal Eversion (S1) 5 Normal Right Dorsiflexion (L4) 5 Normal Inversion 5 Normal Eversion (S1) 5 Normal Toe Strength Toe Manual Muscle Testing Left Great Toe Extension 5 Normal Right Great Toe Extension 5 Normal PT-OP-Q Treatments Start: 03/08/20 14:41 Freq: Status: Active Protocol: Document 04/25/20 07:32 MB (Rec: 04/25/20 08:14 MB [id number]) Manual Therapy Treatment Other Other Manual Treatments Pt agrees to Counterstrain to assess and treat fascial tension and pt presents with tension in the following fascial system: right anterior somatic neuro LE, left facial nerve, right LF, spinal vein extension, standard row LV right, preganglionic sympathetics upper and lower right, periosteal scan B. PT treats stacks in the following systems: cervical to lumbar LV spinal vein extension and thoracic duct, JARRETT, periosteal cervical spine PT-OP-R Modalities Start: 03/08/20 14:41 Freq: Status: Active Protocol: Document 04/23/20 09:47 SP (Rec: 04/23/20 11:22 SP [id number]) Hot Pack/Cold Pack Treatment ice cup Location R medial quad mid to distal Patient Position Hooklying Treatment Duration (minutes) 5 Patient Tolerance Good Comments applied to assist decrease medial quad/ adductor pain- minimal help- applied while on shuttle press pre mobility. cryocuff Location R knee Patient Position Hooklying Treatment Duration (minutes) 10 Patient Tolerance Good Comments good feedback PT-OP-T Assessment and Plan Start: 03/08/20 14:41 Freq: Status: Active Protocol: Document 04/25/20 07:32 MB (Rec: 04/25/20 08:14 MB [id number]) Physical Therapy Assessment Rehab Potential Rehabilitation Potential Good Evaluation Complexity Number of Personal Factors/Comorbidities 1-2 Number of Body Systems Impaired 1-2 Clinical Presentation at Evaluation Stable Impairments Impairments Activity Tolerance,Balance, Edema,Functional Activities, Functional Mobility,Gait, Integument,Pain,Posture,ROM, Soft Tissue Mobility,Strength, Transfers Goals 6 School Guard Goal (LTG) Pt will present with improved right knee AROM equal to the left to improve sit to stands and gait pattern by 06/18/2020. 04/20/20: Supine AROM 20-90 deg ; sitting flexion 92 deg. Pt is able to get a full revolution on bike with seat at 7 first try today. After hook lying clam with band supine AROM right knee 15-90 deg LTG Duration 8 weeks 5 Shelter Goal (LTG) Pt will perform at least 20 reps of sit to stands without UE support in 30 sec to reflect improved functional transfers and strength by 06/18. 04/20/20: Pt with right foot forward and performs 13 reps in 30 sec. She reports 4-5/10 right knee pain LTG Duration 8 weeks 4 Shelter Goal (LTG) Pt will perform progressive HEP with I including range of motion, strengthening, flexibility, balance and gait exercises to improve overall functional strength by 2020. 04/20/20: Pt to focus on ascend and descend steps with good form and clam in hook lying with band, HS and knee extension right knee LTG Duration 8 weeks 3 Shelter Goal (LTG) Pt will ascend and descend 3 steps with receiprocal gait and no AD or rail to allow safe home entrance and exit by 06/18/2020. 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 04/20/20: Pt gait trains 1430 feet without AD and with reports of 2/10 right knee pain. She presents with better upright, speed and ongoing right knee valgus and decreased heel and toe push off. 9 deg valgus right knee in standing. LTG Duration 8 weeks 1 Shelter Goal (LTG) Pt will present with an improved LEF score to reflect no more than 20% impairment to prepare to return to horse and dog ownership tasks by 06/01. 04/20/20: LEF score is 39/80, refecting 51.25% impairment LTG Duration 8 weeks Assessment Summary Assessment Initiated Counterstrain today and treated lymphatic venous system mostly. Con't to monitor. Ed pt to drink plenty of water and not to exercise today. Physical Therapy Plan Frequency and Duration Frequency of Treatment 3-5x/wk Duration of Treatment 8 weeks Plan of Care Start Date 04/20/20 Plan of Care End Date 06/18/20 Therapeutic Interventions Therapeutic Interventions Balance Training,Canalithic Repositioning,Gait Training, Home Exercise Program,Joint Mobilizations,Manual Therapy, Neuromuscular Re-education, Patient/Caregiver Education, Self-Care/Home Management,Soft Tissue Mobilization,Taping, Therapeutic Activities, Therapeutic Exercises Modalities Cold Pack/Ice Massage,Electric Stimulation,Hot Packs, Ultrasound Next Visit Focus/Plan Next Note Type Treatment Note Next Visit Plan Focus with toes up for exercises (shuttle, hook lying exercises). When sees primary PT next time: Counterstrain. Progress hook lying abduction such as with bridging, con't to assess the right adductors. Consider ankle DF and eversion with band in sitting
--- NOTE | 2020-04-26 09:50 | PT.OTN ---
Current Diagnoses Unilateral primary osteoarthritis, right knee (04/26/20) Encounter for other orthopedic aftercare (04/26/20) Physical Therapy Treatment Note PT-OP-A Visit Information Start: 03/08/20 14:41 Freq: Status: Active Protocol: Document 04/26/20 09:21 SP (Rec: 04/26/20 12:09 SP [id number]) Out-Patient Physical Therapy Visit Information Visit Information Visit Type Treatment Note Visit Note CARRIE Potts assisted with facilitation DF ROM on upright bike and as needed while being instructed and supervised by ELLYN Nunez. Visit Start Time 09:05 Visit Stop Time 09:50 Total Visit Minutes 45 Visit Number 19 Number of TILE ROOFER Visits 1 PT-OP-B Current Condition Start: 03/08/20 14:41 Freq: Status: Active Protocol: Document 03/13/20 09:00 MB (Rec: 03/13/20 09:12 MB [id number]) Current Condition History of Current Condition Onset Date 03/07/20 Current Complaints Right knee pain and weakness History of Current Condition Pt is s/p right TKR 03/07/20. Pt has a history of B knee OA, left thumb arthritis, neck arthritis and back arthritis and injections in neck and back. Pt sees chiroprator 2x/ month and massage therapist 1x /month for her neck and back. She has also had work done on her TMJ. She has a thyroid issue. Pt is very active, rides horses and does agility with her dog. Pt reports 7-8/10 pain in her right knee, lateral and posterior leg. The greatest pain is in her groin. She is wearing compression. Prior Treatments and Tests R TKR, back and neck injections, PT in the past. She had a good experience with PT in the past. Treatment Goals Patient/Caregiver Goals I want to get back to riding and pickle ball. PT-OP-C Subjective Start: 03/08/20 14:41 Freq: Status: Active Protocol: Document 04/26/20 09:21 SP (Rec: 04/26/20 12:09 SP [id number]) OP-PT Subjective Patient Comments Patient Comments I was able to go horseback riding and agility training from a far instructions with her emr trainer and dog yesterday. PT-OP-G Mobility & Gait Start: 03/08/20 14:41 Freq: Status: Active Protocol: Document 03/13/20 09:00 MB (Rec: 03/13/20 13:40 MB [id number]) OP Mobility Evaluation Bed Mobility Rolling Pt uses left leg to lift her right leg onto the mat with left toes and forefoot hooked around the back of right distal leg Transfers Sit to Stand Right leg out in front and heavy UE use OP Gait Assessment Gait Gait Assistance Required: Independent Distance (Feet) 75 Able to Maintain Weight Bearing Status Yes During Gait Assistive Devices Assistive Device Front Wheeled Walker Orthotic/Prosthetic Devices or Brace: Yes Gait Deviations General Gait Pattern Antalgic,Decreased Stride Length,Decreased Feet Clearance,Flexed Trunk Factors Limiting Gait Function Factors Limiting Gait Function Decreased Activity Tolerance, Decreased Strength,Limited Range of Motion,Pain Comments Gait Comments Pt's walker is too short for her upon arrival and PT raises it 2 and she is able to gait train better upright. Initially, she has antalgic gait with little heel strike, push off on toes and right knee flexion and hip flexion and extension on the RLE. After gentle manual work after assessment, pt's step-length, upright and heel strike is better. PT-OP-K Range of Motion Start: 03/08/20 14:41 Freq: Status: Active Protocol: Document 03/13/20 09:00 MB (Rec: 03/13/20 13:40 MB [id number]) Knee Goniometric Range of Motion Knee Left Knee ROM WFL Yes Right Knee ROM WFL No Patient Position Long sitting Flexion Active (degrees) 70 Extension Active (degrees) 8 PT-OP-M Strength Start: 03/08/20 14:41 Freq: Status: Active Protocol: Document 03/13/20 09:00 MB (Rec: 03/13/20 13:40 MB [id number]) Hip Strength Hip Manual Muscle Testing Left Flexion (L2) 5 Normal Abduction 5 Normal Right Comments Deferred hip and knee MMT d/t pt reports of high pain Knee Strength Knee Manual Muscle Testing Left Flexion (S2) 5 Normal Extension (L3) 5 Normal Right Comments MMT deferred d/t high pain at rest and with limited AROM Ankle/Foot Strength Ankle and Foot Manual Muscle Testing Left Dorsiflexion (L4) 5 Normal Inversion 5 Normal Eversion (S1) 5 Normal Right Dorsiflexion (L4) 5 Normal Inversion 5 Normal Eversion (S1) 5 Normal Toe Strength Toe Manual Muscle Testing Left Great Toe Extension 5 Normal Right Great Toe Extension 5 Normal PT-OP-Q Treatments Start: 03/08/20 14:41 Freq: Status: Active Protocol: Document 04/26/20 09:21 SP (Rec: 04/26/20 12:09 SP [id number]) Cardio Equipment Bicycle (Upright) Duration (Minutes) 8 Resistance 0 Seat Position 7 Other provided manual support at pelvis, knee, ankle to improvehip/knee/ankle ROM Gym Equipment Shuttle Recovery Unilateral squat Details R Resistance 25# Shuttle Recovery Platform Stable Reps/Time x10 Bilateral Squats Resistance 50lb, Level 2 TB Shuttle Recovery Platform Stable Reps/Time 2x15, 93* R knee flexion Sport Cord green Exercise Details backward, SLS on R with hip abd of L taps Cord/Resistance green Comments quad, vastus lateralis and hip abd facilitation- to improve lateral femur rotation to neutral and decrease VMO discomfort recruitment Therapeutic Exercises Standing Exercises band walk Standing Exercise Name assessment today, not ready for in HEP though Resistance yellow Reps/Minutes 10 ft Comments lateral stepping with cues R knee alignment with toes and hip abd stab. sit to stand Reps/Minutes x10 Comments cued knee laterally with toe alignment and hip hinge posterior chain recrut Gait Training Gait Activity Gait without AD Comments Pt walks with decreased valgus right knee: cued and mirror self feedback of R knee ext to heel strike, mid stance hip ext with glut facilitation into knee flexion then toe off . PT-OP-R Modalities Start: 03/08/20 14:41 Freq: Status: Active Protocol: Document 04/23/20 09:47 SP (Rec: 04/23/20 11:22 SP [id number]) Hot Pack/Cold Pack Treatment ice cup Location R medial quad mid to distal Patient Position Hooklying Treatment Duration (minutes) 5 Patient Tolerance Good Comments applied to assist decrease medial quad/ adductor pain- minimal help- applied while on shuttle press pre mobility. cryocuff Location R knee Patient Position Hooklying Treatment Duration (minutes) 10 Patient Tolerance Good Comments good feedback PT-OP-T Assessment and Plan Start: 03/08/20 14:41 Freq: Status: Active Protocol: Document 04/26/20 09:21 SP (Rec: 04/26/20 12:09 SP [id number]) Physical Therapy Assessment Goals 6 Degreaser Operator Goal (LTG) Pt will present with improved right knee AROM equal to the left to improve sit to stands and gait pattern by 06/18/2020. 04/20/20: Supine AROM 20-90 deg ; sitting flexion 92 deg. Pt is able to get a full revolution on bike with seat at 7 first try today. After hook lying clam with band supine AROM right knee 15-90 deg LTG Duration 8 weeks 5 Fdc Goal (LTG) Pt will perform at least 20 reps of sit to stands without UE support in 30 sec to reflect improved functional transfers and strength by 06/18. 04/20/20: Pt with right foot forward and performs 13 reps in 30 sec. She reports 4-5/10 right knee pain LTG Duration 8 weeks 4 Fdc Goal (LTG) Pt will perform progressive HEP with I including range of motion, strengthening, flexibility, balance and gait exercises to improve overall functional strength by 2020. 04/20/20: Pt to focus on ascend and descend steps with good form and clam in hook lying with band, HS and knee extension right knee LTG Duration 8 weeks 3 Fdc Goal (LTG) Pt will ascend and descend 3 steps with receiprocal gait and no AD or rail to allow safe home entrance and exit by 06/18/2020. 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 04/20/20: Pt gait trains 1430 feet without AD and with reports of 2/10 right knee pain. She presents with better upright, speed and ongoing right knee valgus and decreased heel and toe push off. 9 deg valgus right knee in standing. LTG Duration 8 weeks 1 Fdc Goal (LTG) Pt will present with an improved LEF score to reflect no more than 20% impairment to prepare to return to horse and dog ownership tasks by 06/01. 04/20/20: LEF score is 39/80, refecting 51.25% impairment LTG Duration 8 weeks Assessment Summary Assessment TILE ROOFER assisted pelvic stability/ R knee alignment with toe ( more medial shift), allow full flexion/ extension and R ankle DF AROM with noted increased discomfort but report of wants to gain benefits in ROM. Pt improved mid to distal quad and mid hip abductor firing and less VMO discomfort recruitment during resisted gait and sit to stands with cuing for proper alignment. Pt declined cold modalities end of tx, she said will ice at home with wants but understands no manual over leg at this time. Physical Therapy Plan Frequency and Duration Frequency of Treatment 3-5x/wk Duration of Treatment 8 weeks Plan of Care Start Date 04/20/20 Plan of Care End Date 06/18/20 Therapeutic Interventions Therapeutic Interventions Balance Training,Canalithic Repositioning,Gait Training, Home Exercise Program,Joint Mobilizations,Manual Therapy, Neuromuscular Re-education, Patient/Caregiver Education, Self-Care/Home Management,Soft Tissue Mobilization,Taping, Therapeutic Activities, Therapeutic Exercises Modalities Cold Pack/Ice Massage,Electric Stimulation,Hot Packs, Ultrasound Next Visit Focus/Plan Next Note Type Treatment Note Next Visit Plan Assess response to last tx: gait, resisted gait, sit to stands, bike, shuttle recovery with added single leg. *TILE ROOFER discussed with supervising PT response to tx today and was recommended intiate pelvis ROM with or w/ out comoran ball to assist riding horse ROM needs to perform again, review pelvic realignment ex review and possible cork heel lift on L to assist alignment in gait next tx. PTs POC: Focus with toes up for exercises (shuttle, hook lying exercises). When sees primary PT next time: Counterstrain. Progress hook lying abduction such as with bridging, con't to assess the right adductors. Consider ankle DF and eversion with band in sitting
--- NOTE | 2020-04-27 09:00 | PT.OTN ---
Current Diagnoses Unilateral primary osteoarthritis, right knee (04/27/20) Encounter for other orthopedic aftercare (04/27/20) Physical Therapy Treatment Note PT-OP-A Visit Information Start: 03/08/20 14:41 Freq: Status: Active Protocol: Document 04/27/20 08:15 LD (Rec: 04/27/20 14:25 LD [id number]) Out-Patient Physical Therapy Visit Information Visit Information Visit Type Treatment Note Visit Note SPTA Katlyn led tx w/ MALE INFERTILITY SPECIALIST Mayra . Visit Start Time 08:15 Visit Stop Time 09:00 Total Visit Minutes 45 Visit Number 20 Number of MALE INFERTILITY SPECIALIST Visits 2 PT-OP-B Current Condition Start: 03/08/20 14:41 Freq: Status: Active Protocol: Document 03/13/20 09:00 MB (Rec: 03/13/20 09:12 MB [id number]) Current Condition History of Current Condition Onset Date 03/07/20 Current Complaints Right knee pain and weakness History of Current Condition Pt is s/p right TKR 03/07/20. Pt has a history of B knee OA, left thumb arthritis, neck arthritis and back arthritis and injections in neck and back. Pt sees chiroprator 2x/ month and massage therapist 1x /month for her neck and back. She has also had work done on her TMJ. She has a thyroid issue. Pt is very active, rides horses and does agility with her dog. Pt reports 7-8/10 pain in her right knee, lateral and posterior leg. The greatest pain is in her groin. She is wearing compression. Prior Treatments and Tests R TKR, back and neck injections, PT in the past. She had a good experience with PT in the past. Treatment Goals Patient/Caregiver Goals I want to get back to riding and pickle ball. PT-OP-C Subjective Start: 03/08/20 14:41 Freq: Status: Active Protocol: Document 04/27/20 08:15 LD (Rec: 04/27/20 14:25 LD [id number]) OP-PT Subjective Patient Comments Patient Comments Pt reports that she went swimming for 45 min yesterday, freestyle one way and way back. Will be standing alot later today and tomorrow for training with horses. Patient Reported Progress Improving PT-OP-G Mobility & Gait Start: 03/08/20 14:41 Freq: Status: Active Protocol: Document 03/13/20 09:00 MB (Rec: 03/13/20 13:40 MB [id number]) OP Mobility Evaluation Bed Mobility Rolling Pt uses left leg to lift her right leg onto the mat with left toes and forefoot hooked around the back of right distal leg Transfers Sit to Stand Right leg out in front and heavy UE use OP Gait Assessment Gait Gait Assistance Required: Independent Distance (Feet) 75 Able to Maintain Weight Bearing Status Yes During Gait Assistive Devices Assistive Device Front Wheeled Walker Orthotic/Prosthetic Devices or Brace: Yes Gait Deviations General Gait Pattern Antalgic,Decreased Stride Length,Decreased Feet Clearance,Flexed Trunk Factors Limiting Gait Function Factors Limiting Gait Function Decreased Activity Tolerance, Decreased Strength,Limited Range of Motion,Pain Comments Gait Comments Pt's walker is too short for her upon arrival and PT raises it 2 and she is able to gait train better upright. Initially, she has antalgic gait with little heel strike, push off on toes and right knee flexion and hip flexion and extension on the RLE. After gentle manual work after assessment, pt's step-length, upright and heel strike is better. PT-OP-K Range of Motion Start: 03/08/20 14:41 Freq: Status: Active Protocol: Document 03/13/20 09:00 MB (Rec: 03/13/20 13:40 MB [id number]) Knee Goniometric Range of Motion Knee Left Knee ROM WFL Yes Right Knee ROM WFL No Patient Position Long sitting Flexion Active (degrees) 70 Extension Active (degrees) 8 PT-OP-M Strength Start: 03/08/20 14:41 Freq: Status: Active Protocol: Document 03/13/20 09:00 MB (Rec: 03/13/20 13:40 MB [id number]) Hip Strength Hip Manual Muscle Testing Left Flexion (L2) 5 Normal Abduction 5 Normal Right Comments Deferred hip and knee MMT d/t pt reports of high pain Knee Strength Knee Manual Muscle Testing Left Flexion (S2) 5 Normal Extension (L3) 5 Normal Right Comments MMT deferred d/t high pain at rest and with limited AROM Ankle/Foot Strength Ankle and Foot Manual Muscle Testing Left Dorsiflexion (L4) 5 Normal Inversion 5 Normal Eversion (S1) 5 Normal Right Dorsiflexion (L4) 5 Normal Inversion 5 Normal Eversion (S1) 5 Normal Toe Strength Toe Manual Muscle Testing Left Great Toe Extension 5 Normal Right Great Toe Extension 5 Normal PT-OP-Q Treatments Start: 03/08/20 14:41 Freq: Status: Active Protocol: Document 04/27/20 08:15 LD (Rec: 04/27/20 14:25 LD [id number]) Gym Equipment Shuttle Recovery Unilateral squat Details R Resistance 37# Shuttle Recovery Platform Stable Reps/Time x10 toes up w/ half foam roll Bilateral Squats Resistance 62lb, Level 2 TB Shuttle Recovery Platform Stable Reps/Time 2x15, toes up w/ half foam roll Sport Cord green Exercise Details backward, SLS on R with hip abd of L taps, forward Cord/Resistance green Comments quad, vastus lateralis and hip abd facilitation- to improve lateral femur rotation to neutral and decrease VMO discomfort recruitment Therapeutic Exercises Supine Exercises Pelvic realignment exercises Supine Exercise Name Reviewed, but not performed Side bilateral Comments 5 reps all exercises, 3 sec hold each Sitting Exercises Pelvic ROM Czech Ball Sitting Exercise Name anterior/posterior, lateral, seated bouncing Equipment Used exercise ball Reps/Minutes 5 min Comments Cued for tall posture, hips moving in a comfortable ROM Sit to stands without UE support Equipment Used chair Reps/Minutes 10x Comments cued feet tucked in within tolerable knee flexion Manual Therapy Treatment Taping Lateral Body Location R medial knee Treatment Focus lateral quad muscle facilitation Type of Tape Kinesio Tape Skin Inspection normal intact Comments Applied single strip for lateral quad/glute muscle facilitation. Swelling Body Location R medial knee Treatment Focus decrease swelling Type of Tape Kinesio Tape Skin Inspection normal intact Comments Applied finger taping for swelling assist. PT-OP-R Modalities Start: 03/08/20 14:41 Freq: Status: Active Protocol: Document 04/23/20 09:47 SP (Rec: 04/23/20 11:22 SP [id number]) Hot Pack/Cold Pack Treatment ice cup Location R medial quad mid to distal Patient Position Hooklying Treatment Duration (minutes) 5 Patient Tolerance Good Comments applied to assist decrease medial quad/ adductor pain- minimal help- applied while on shuttle press pre mobility. cryocuff Location R knee Patient Position Hooklying Treatment Duration (minutes) 10 Patient Tolerance Good Comments good feedback PT-OP-T Assessment and Plan Start: 03/08/20 14:41 Freq: Status: Active Protocol: Document 04/27/20 08:15 LD (Rec: 04/27/20 14:25 LD [id number]) Physical Therapy Assessment Goals 6 Freight Separator Goal (LTG) Pt will present with improved right knee AROM equal to the left to improve sit to stands and gait pattern by 06/18/2020. 04/20/20: Supine AROM 20-90 deg ; sitting flexion 92 deg. Pt is able to get a full revolution on bike with seat at 7 first try today. After hook lying clam with band supine AROM right knee 15-90 deg LTG Duration 8 weeks 5 Fdc Goal (LTG) Pt will perform at least 20 reps of sit to stands without UE support in 30 sec to reflect improved functional transfers and strength by 06/18. 04/20/20: Pt with right foot forward and performs 13 reps in 30 sec. She reports 4-5/10 right knee pain LTG Duration 8 weeks 4 Freight Separator Goal (LTG) Pt will perform progressive HEP with I including range of motion, strengthening, flexibility, balance and gait exercises to improve overall functional strength by 2020. 04/20/20: Pt to focus on ascend and descend steps with good form and clam in hook lying with band, HS and knee extension right knee, pelvic realignment, pelvic clock, sit to stand LTG Duration 8 weeks 3 Fdc Goal (LTG) Pt will ascend and descend 3 steps with receiprocal gait and no AD or rail to allow safe home entrance and exit by 06/18/2020. 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 04/20/20: Pt gait trains 1430 feet without AD and with reports of 2/10 right knee pain. She presents with better upright, speed and ongoing right knee valgus and decreased heel and toe push off. 9 deg valgus right knee in standing. LTG Duration 8 weeks 1 Freight Separator Goal (LTG) Pt will present with an improved LEF score to reflect no more than 20% impairment to prepare to return to horse and dog ownership tasks by 06/01. 04/20/20: LEF score is 39/80, refecting 51.25% impairment LTG Duration 8 weeks Assessment Summary Assessment Pt arrived w/ improved gait to tx from last tx, improvement of AROM knee flexion w/ decreased valgus, lacking knee extension and dorsiflexion. Pt tolerated shuttle leg press well using half foam roll to facilitate ankle DF. Applied K taping, w/ focus on swelling and lateral quad/glute facilitation. Added pelvic tilits w/ exercise ball to assist w/ pelvic mobility when horseriding, cueing for upright posture. Pt more aware of lateral quad facilitation w/ less adductor recruitment and pain with improved knee flexion/ extension and wt shift over each LE during resisted gait w/ mirror for self feedback. Will assess response to ktaping next tx. Physical Therapy Plan Frequency and Duration Frequency of Treatment 3-5x/wk Duration of Treatment 8 weeks Plan of Care Start Date 04/20/20 Plan of Care End Date 06/18/20 Therapeutic Interventions Therapeutic Interventions Balance Training,Canalithic Repositioning,Gait Training, Home Exercise Program,Joint Mobilizations,Manual Therapy, Neuromuscular Re-education, Patient/Caregiver Education, Self-Care/Home Management,Soft Tissue Mobilization,Taping, Therapeutic Activities, Therapeutic Exercises Modalities Cold Pack/Ice Massage,Electric Stimulation,Hot Packs, Ultrasound Next Visit Focus/Plan Next Note Type Treatment Note Next Visit Plan Assess response to last tx: pelvic ROM, pelvic alignment ex, gait, resisted gait, sit to stands, bike, shuttle recovery with added single leg . PTs POC: Focus with toes up for exercises (shuttle, hook lying exercises). When sees primary PT next time: Counterstrain. Progress hook lying abduction such as with bridging, con't to assess the right adductors. Consider ankle DF and eversion with band in sitting
--- NOTE | 2020-04-30 10:33 | PT.OTN ---
Current Diagnoses Unilateral primary osteoarthritis, right knee (04/30/20) Encounter for other orthopedic aftercare (04/30/20) Physical Therapy Treatment Note PT-OP-A Visit Information Start: 03/08/20 14:41 Freq: Status: Active Protocol: Document 04/30/20 09:45 LD (Rec: 04/30/20 13:46 LD [id number]) Out-Patient Physical Therapy Visit Information Visit Information Visit Type Treatment Note Visit Note SPTA Katlyn led tx w/ PIPE FITTER SUPERVISOR MAINTENANCE Mayra . Visit Start Time 09:45 Visit Stop Time 10:33 Total Visit Minutes 48 Visit Number 21 Number of PIPE FITTER SUPERVISOR MAINTENANCE Visits 3 PT-OP-B Current Condition Start: 03/08/20 14:41 Freq: Status: Active Protocol: Document 03/13/20 09:00 MB (Rec: 03/13/20 09:12 MB [id number]) Current Condition History of Current Condition Onset Date 03/07/20 Current Complaints Right knee pain and weakness History of Current Condition Pt is s/p right TKR 03/07/20. Pt has a history of B knee OA, left thumb arthritis, neck arthritis and back arthritis and injections in neck and back. Pt sees chiroprator 2x/ month and massage therapist 1x /month for her neck and back. She has also had work done on her TMJ. She has a thyroid issue. Pt is very active, rides horses and does agility with her dog. Pt reports 7-8/10 pain in her right knee, lateral and posterior leg. The greatest pain is in her groin. She is wearing compression. Prior Treatments and Tests R TKR, back and neck injections, PT in the past. She had a good experience with PT in the past. Treatment Goals Patient/Caregiver Goals I want to get back to riding and pickle ball. PT-OP-C Subjective Start: 03/08/20 14:41 Freq: Status: Active Protocol: Document 04/30/20 09:45 LD (Rec: 04/30/20 13:46 LD [id number]) OP-PT Subjective Patient Comments Patient Comments Pt reports that she 'overdid' her knee this weekend by swimming longer, ended up taking advil to help w/ pain. K taping was helpful with swelling only. Patient Reported Progress Improving PT-OP-G Mobility & Gait Start: 03/08/20 14:41 Freq: Status: Active Protocol: Document 03/13/20 09:00 MB (Rec: 03/13/20 13:40 MB [id number]) OP Mobility Evaluation Bed Mobility Rolling Pt uses left leg to lift her right leg onto the mat with left toes and forefoot hooked around the back of right distal leg Transfers Sit to Stand Right leg out in front and heavy UE use OP Gait Assessment Gait Gait Assistance Required: Independent Distance (Feet) 75 Able to Maintain Weight Bearing Status Yes During Gait Assistive Devices Assistive Device Front Wheeled Walker Orthotic/Prosthetic Devices or Brace: Yes Gait Deviations General Gait Pattern Antalgic,Decreased Stride Length,Decreased Feet Clearance,Flexed Trunk Factors Limiting Gait Function Factors Limiting Gait Function Decreased Activity Tolerance, Decreased Strength,Limited Range of Motion,Pain Comments Gait Comments Pt's walker is too short for her upon arrival and PT raises it 2 and she is able to gait train better upright. Initially, she has antalgic gait with little heel strike, push off on toes and right knee flexion and hip flexion and extension on the RLE. After gentle manual work after assessment, pt's step-length, upright and heel strike is better. PT-OP-K Range of Motion Start: 03/08/20 14:41 Freq: Status: Active Protocol: Document 03/13/20 09:00 MB (Rec: 03/13/20 13:40 MB [id number]) Knee Goniometric Range of Motion Knee Left Knee ROM WFL Yes Right Knee ROM WFL No Patient Position Long sitting Flexion Active (degrees) 70 Extension Active (degrees) 8 PT-OP-M Strength Start: 03/08/20 14:41 Freq: Status: Active Protocol: Document 03/13/20 09:00 MB (Rec: 03/13/20 13:40 MB [id number]) Hip Strength Hip Manual Muscle Testing Left Flexion (L2) 5 Normal Abduction 5 Normal Right Comments Deferred hip and knee MMT d/t pt reports of high pain Knee Strength Knee Manual Muscle Testing Left Flexion (S2) 5 Normal Extension (L3) 5 Normal Right Comments MMT deferred d/t high pain at rest and with limited AROM Ankle/Foot Strength Ankle and Foot Manual Muscle Testing Left Dorsiflexion (L4) 5 Normal Inversion 5 Normal Eversion (S1) 5 Normal Right Dorsiflexion (L4) 5 Normal Inversion 5 Normal Eversion (S1) 5 Normal Toe Strength Toe Manual Muscle Testing Left Great Toe Extension 5 Normal Right Great Toe Extension 5 Normal PT-OP-Q Treatments Start: 03/08/20 14:41 Freq: Status: Active Protocol: Document 04/30/20 09:45 LD (Rec: 04/30/20 13:46 LD [id number]) Gym Equipment Shuttle Recovery Unilateral squat Details R Resistance 37# Shuttle Recovery Platform Stable Reps/Time x10 toes up w/ half foam roll Bilateral Squats Resistance 62lb, Level 2 TB Shuttle Recovery Platform Stable Reps/Time 2x15, toes up w/ half foam roll Therapeutic Exercises Supine Exercises AP, HS, GS, hip abduction and adduction Supine Exercise Name HS AAROM Side right Comments Cues for toes and knees to ceiling and work on full ext/ flex as available Sitting Exercises Pelvic ROM Indian Ball Sitting Exercise Name Lunge ROM, anterior/posterior, lateral, seated bouncing Equipment Used exercise ball Reps/Minutes 5 min Comments Cued for tall posture, hips moving in a comfortable ROM Standing Exercises stationary lunge Standing Exercise Name Focus on ROM: R knee flexion Side right Equipment Used tallest step box Reps/Minutes 3 min Manual Therapy Treatment Soft Tissue Mobilization Quad Body Location R Mobilization Type Myofascial Release Intensity/Depth Moderate Body Position Supine Comments Assist w/ ROM. HS/calf Body Location R Mobilization Type Myofascial Release Intensity/Depth Moderate Body Position Prone Comments in HS stretch position active knee ext. Assist w/ ROM. Joint Mobilizations tibial femoral AP, AP Joint R Grade II Body Position Supine Comments extended and various ranges into flexion to allow femur glide on tibia for assisted ROM Patellofemoral Joint R Direction inf Grade III Body Position Supine Taping Swelling Body Location R medial knee Treatment Focus decrease swelling Type of Tape Kinesio Tape Skin Inspection normal intact Comments Applied finger taping for swelling assist. PT-OP-R Modalities Start: 03/08/20 14:41 Freq: Status: Active Protocol: Document 04/23/20 09:47 SP (Rec: 04/23/20 11:22 SP [id number]) Hot Pack/Cold Pack Treatment ice cup Location R medial quad mid to distal Patient Position Hooklying Treatment Duration (minutes) 5 Patient Tolerance Good Comments applied to assist decrease medial quad/ adductor pain- minimal help- applied while on shuttle press pre mobility. cryocuff Location R knee Patient Position Hooklying Treatment Duration (minutes) 10 Patient Tolerance Good Comments good feedback PT-OP-T Assessment and Plan Start: 03/08/20 14:41 Freq: Status: Active Protocol: Document 04/30/20 09:45 LD (Rec: 04/30/20 13:46 LD [id number]) Physical Therapy Assessment Goals 6 Care Home Goal (LTG) Pt will present with improved right knee AROM equal to the left to improve sit to stands and gait pattern by 06/18/2020. 04/20/20: Supine AROM 20-90 deg ; sitting flexion 92 deg. Pt is able to get a full revolution on bike with seat at 7 first try today. After hook lying clam with band supine AROM right knee 15-90 deg 04/30/20: Pre AROM R knee on shuttle leg press: 93 deg Stationary lunge: 97 deg pre Stationary lunge: 101 deg post manual HS AROM: 103 deg LTG Duration 8 weeks 5 Care Home Goal (LTG) Pt will perform at least 20 reps of sit to stands without UE support in 30 sec to reflect improved functional transfers and strength by 06/18. 04/20/20: Pt with right foot forward and performs 13 reps in 30 sec. She reports 4-5/10 right knee pain LTG Duration 8 weeks 4 Gift Shop Manager Goal (LTG) Pt will perform progressive HEP with I including range of motion, strengthening, flexibility, balance and gait exercises to improve overall functional strength by 2020. 04/20/20: Pt to focus on ascend and descend steps with good form and clam in hook lying with band, HS and knee extension right knee, pelvic realignment, pelvic clock, sit to stand, stationary lunge. LTG Duration 8 weeks 3 Care Home Goal (LTG) Pt will ascend and descend 3 steps with receiprocal gait and no AD or rail to allow safe home entrance and exit by 06/18/2020. 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 04/20/20: Pt gait trains 1430 feet without AD and with reports of 2/10 right knee pain. She presents with better upright, speed and ongoing right knee valgus and decreased heel and toe push off. 9 deg valgus right knee in standing. LTG Duration 8 weeks 1 Gift Shop Manager Goal (LTG) Pt will present with an improved LEF score to reflect no more than 20% impairment to prepare to return to horse and dog ownership tasks by 06/01. 04/20/20: LEF score is 39/80, refecting 51.25% impairment LTG Duration 8 weeks Assessment Summary Assessment Tx focus on ROM today. Pt improved R knee flexion ROM post manual therapy and ROM exercises from 93 deg to 103 deg. Applied K taping for swelling w/ no increasing pain at end of tx. Physical Therapy Plan Frequency and Duration Frequency of Treatment 3-5x/wk Duration of Treatment 8 weeks Plan of Care Start Date 04/20/20 Plan of Care End Date 06/18/20 Therapeutic Interventions Therapeutic Interventions Balance Training,Canalithic Repositioning,Gait Training, Home Exercise Program,Joint Mobilizations,Manual Therapy, Neuromuscular Re-education, Patient/Caregiver Education, Self-Care/Home Management,Soft Tissue Mobilization,Taping, Therapeutic Activities, Therapeutic Exercises Modalities Cold Pack/Ice Massage,Electric Stimulation,Hot Packs, Ultrasound Next Visit Focus/Plan Next Note Type Treatment Note Next Visit Plan Assess response to last tx: manual therapy, knee ROM, pelvic ROM, sit to stands, shuttle recovery with added single leg. PTs POC: Focus with toes up for exercises (shuttle, hook lying exercises). When sees primary PT next time: Counterstrain. Progress hook lying abduction such as with bridging, con't to assess the right adductors. Consider ankle DF and eversion with band in sitting
--- NOTE | 2020-05-02 17:25 | PT.OTN ---
Current Diagnoses Unilateral primary osteoarthritis, right knee (05/02/20) Encounter for other orthopedic aftercare (05/02/20) Physical Therapy Treatment Note PT-OP-A Visit Information Start: 03/08/20 14:41 Freq: Status: Active Protocol: Document 05/02/20 14:42 MA (Rec: 05/02/20 15:17 MA [id number]) Out-Patient Physical Therapy Visit Information Visit Information Visit Type Treatment Note Visit Start Time 14:30 Visit Stop Time 15:25 Total Visit Minutes 55 Visit Number 22 Number of ASSET ACCOUNTANT Visits 4 PT-OP-B Current Condition Start: 03/08/20 14:41 Freq: Status: Active Protocol: Document 03/13/20 09:00 MB (Rec: 03/13/20 09:12 MB [id number]) Current Condition History of Current Condition Onset Date 03/07/20 Current Complaints Right knee pain and weakness History of Current Condition Pt is s/p right TKR 03/07/20. Pt has a history of B knee OA, left thumb arthritis, neck arthritis and back arthritis and injections in neck and back. Pt sees chiroprator 2x/ month and massage therapist 1x /month for her neck and back. She has also had work done on her TMJ. She has a thyroid issue. Pt is very active, rides horses and does agility with her dog. Pt reports 7-8/10 pain in her right knee, lateral and posterior leg. The greatest pain is in her groin. She is wearing compression. Prior Treatments and Tests R TKR, back and neck injections, PT in the past. She had a good experience with PT in the past. Treatment Goals Patient/Caregiver Goals I want to get back to riding and pickle ball. PT-OP-C Subjective Start: 03/08/20 14:41 Freq: Status: Active Protocol: Document 05/02/20 14:42 MA (Rec: 05/02/20 15:17 MA [id number]) OP-PT Subjective Patient Comments Patient Comments Pt had another appt with who wants to do a 2nd manipulation due to pt's decreased knee ROM. Dr wants pt at 135 degrees flexion; pt only able to get 104 degrees at appt on Thursday. PT-OP-G Mobility & Gait Start: 03/08/20 14:41 Freq: Status: Active Protocol: Document 03/13/20 09:00 MB (Rec: 03/13/20 13:40 MB [id number]) OP Mobility Evaluation Bed Mobility Rolling Pt uses left leg to lift her right leg onto the mat with left toes and forefoot hooked around the back of right distal leg Transfers Sit to Stand Right leg out in front and heavy UE use OP Gait Assessment Gait Gait Assistance Required: Independent Distance (Feet) 75 Able to Maintain Weight Bearing Status Yes During Gait Assistive Devices Assistive Device Front Wheeled Walker Orthotic/Prosthetic Devices or Brace: Yes Gait Deviations General Gait Pattern Antalgic,Decreased Stride Length,Decreased Feet Clearance,Flexed Trunk Factors Limiting Gait Function Factors Limiting Gait Function Decreased Activity Tolerance, Decreased Strength,Limited Range of Motion,Pain Comments Gait Comments Pt's walker is too short for her upon arrival and PT raises it 2 and she is able to gait train better upright. Initially, she has antalgic gait with little heel strike, push off on toes and right knee flexion and hip flexion and extension on the RLE. After gentle manual work after assessment, pt's step-length, upright and heel strike is better. PT-OP-K Range of Motion Start: 03/08/20 14:41 Freq: Status: Active Protocol: Document 03/13/20 09:00 MB (Rec: 03/13/20 13:40 MB [id number]) Knee Goniometric Range of Motion Knee Left Knee ROM WFL Yes Right Knee ROM WFL No Patient Position Long sitting Flexion Active (degrees) 70 Extension Active (degrees) 8 PT-OP-M Strength Start: 03/08/20 14:41 Freq: Status: Active Protocol: Document 03/13/20 09:00 MB (Rec: 03/13/20 13:40 MB [id number]) Hip Strength Hip Manual Muscle Testing Left Flexion (L2) 5 Normal Abduction 5 Normal Right Comments Deferred hip and knee MMT d/t pt reports of high pain Knee Strength Knee Manual Muscle Testing Left Flexion (S2) 5 Normal Extension (L3) 5 Normal Right Comments MMT deferred d/t high pain at rest and with limited AROM Ankle/Foot Strength Ankle and Foot Manual Muscle Testing Left Dorsiflexion (L4) 5 Normal Inversion 5 Normal Eversion (S1) 5 Normal Right Dorsiflexion (L4) 5 Normal Inversion 5 Normal Eversion (S1) 5 Normal Toe Strength Toe Manual Muscle Testing Left Great Toe Extension 5 Normal Right Great Toe Extension 5 Normal PT-OP-Q Treatments Start: 03/08/20 14:41 Freq: Status: Active Protocol: Document 05/02/20 14:42 MA (Rec: 05/02/20 15:17 MA [id number]) Gym Equipment Shuttle Recovery Unilateral squat Details R Resistance 37# Shuttle Recovery Platform Stable Reps/Time 25# on RLE, 37# LLE Bilateral Squats Resistance 62lb, Level 2 TB Shuttle Recovery Platform Stable Therapeutic Exercises Supine Exercises Bridges Reps/Minutes x15 Comments flexing left knee further every 5 when pt is lifted toincrease knee flexion Standing Exercises stationary lunge Standing Exercise Name Focus on ROM: R knee flexion Side right Equipment Used tallest step box Reps/Minutes 3 min Comments alternating b/w flexion and extension Gait Training Gait Activity stair mgt Description ascending 6 stairs, descending 4 stairs due to decreased ROM Treatment Focus knee flexion Comments Focused on incresaing R knee flexion when ascending stairs to clear foot and not adducting RLE when descending stairs. Descended on 4 steps due to lack of ROM Manual Therapy Treatment Manual Techniques PROM Type PROM into knee flexion Body Position Supine Comments Holding for 30-60 seconds x4 Self-Care/Home Management Treatment Education Patient Education Home Exercise Program Other Education Discussed having pt's help her increase knee flexion with PROM either prone pushing heel toward glutes, or supine into hip/knee flexion PT-OP-R Modalities Start: 03/08/20 14:41 Freq: Status: Active Protocol: Document 04/23/20 09:47 SP (Rec: 04/23/20 11:22 SP [id number]) Hot Pack/Cold Pack Treatment ice cup Location R medial quad mid to distal Patient Position Hooklying Treatment Duration (minutes) 5 Patient Tolerance Good Comments applied to assist decrease medial quad/ adductor pain- minimal help- applied while on shuttle press pre mobility. cryocuff Location R knee Patient Position Hooklying Treatment Duration (minutes) 10 Patient Tolerance Good Comments good feedback PT-OP-T Assessment and Plan Start: 03/08/20 14:41 Freq: Status: Active Protocol: Document 05/02/20 14:42 MA (Rec: 05/02/20 15:17 MA [id number]) Physical Therapy Assessment Goals 6 Fdc Goal (LTG) Pt will present with improved right knee AROM equal to the left to improve sit to stands and gait pattern by 06/18/2020. 04/20/20: Supine AROM 20-90 deg ; sitting flexion 92 deg. Pt is able to get a full revolution on bike with seat at 7 first try today. After hook lying clam with band supine AROM right knee 15-90 deg 04/30/20: Pre AROM R knee on shuttle leg press: 93 deg Stationary lunge: 97 deg pre Stationary lunge: 101 deg post manual HS AROM: 103 deg LTG Duration 8 weeks 5 Predictive Maintenance Specialist Goal (LTG) Pt will perform at least 20 reps of sit to stands without UE support in 30 sec to reflect improved functional transfers and strength by 06/18. 04/20/20: Pt with right foot forward and performs 13 reps in 30 sec. She reports 4-5/10 right knee pain LTG Duration 8 weeks 4 Fdc Goal (LTG) Pt will perform progressive HEP with I including range of motion, strengthening, flexibility, balance and gait exercises to improve overall functional strength by 2020. 04/20/20: Pt to focus on ascend and descend steps with good form and clam in hook lying with band, HS and knee extension right knee, pelvic realignment, pelvic clock, sit to stand, stationary lunge. LTG Duration 8 weeks 3 Fdc Goal (LTG) Pt will ascend and descend 3 steps with receiprocal gait and no AD or rail to allow safe home entrance and exit by 06/18/2020. 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 04/20/20: Pt gait trains 1430 feet without AD and with reports of 2/10 right knee pain. She presents with better upright, speed and ongoing right knee valgus and decreased heel and toe push off. 9 deg valgus right knee in standing. LTG Duration 8 weeks 1 Predictive Maintenance Specialist Goal (LTG) Pt will present with an improved LEF score to reflect no more than 20% impairment to prepare to return to horse and dog ownership tasks by 06/01. 04/20/20: LEF score is 39/80, refecting 51.25% impairment LTG Duration 8 weeks Assessment Summary Assessment Focused on increasing knee flexion/extension both passively and actively. Discussed with pt having help with PROM and holding at tolerable range for 30-60 seconds since pt gets more range passively. Pt was able to get to 104 degrees flexion on the leg press during beginning of session. She is lacking 8 degrees still during active extension. Had pt lunge with foot up on stairs today to help increase flexion and then pull back into HS stretch to help with extension. Physical Therapy Plan Frequency and Duration Frequency of Treatment 3-5x/wk Duration of Treatment 8 weeks Plan of Care Start Date 04/20/20 Plan of Care End Date 06/18/20 Therapeutic Interventions Therapeutic Interventions Balance Training,Canalithic Repositioning,Gait Training, Home Exercise Program,Joint Mobilizations,Manual Therapy, Neuromuscular Re-education, Patient/Caregiver Education, Self-Care/Home Management,Soft Tissue Mobilization,Taping, Therapeutic Activities, Therapeutic Exercises Modalities Cold Pack/Ice Massage,Electric Stimulation,Hot Packs, Ultrasound Next Visit Focus/Plan Next Note Type Treatment Note Next Visit Plan Assess response to last tx after increased PROM; cont. manual therapy, knee ROM, shuttle recovery with added single leg, and stair training PTs POC: Focus with toes up for exercises (shuttle, hook lying exercises). When sees primary PT next time: Counterstrain. Progress hook lying abduction such as with bridging, con't to assess the right adductors. Consider ankle DF and eversion with band in sitting
--- NOTE | 2020-05-03 15:05 | PT.OTN ---
Current Diagnoses Unilateral primary osteoarthritis, right knee (05/03/20) Encounter for other orthopedic aftercare (05/03/20) Physical Therapy Treatment Note PT-OP-A Visit Information Start: 03/08/20 14:41 Freq: Status: Active Protocol: Document 05/03/20 12:59 [facility] (Rec: 05/03/20 15:05 [facility] [id number]) Out-Patient Physical Therapy Visit Information Visit Information Visit Type Treatment Note Visit Start Time 13:00 Visit Stop Time 13:55 Total Visit Minutes 55 Visit Number 23 Number of BEHAVIOR CLINICIAN Visits 0 PT-OP-B Current Condition Start: 03/08/20 14:41 Freq: Status: Active Protocol: Document 03/13/20 09:00 MB (Rec: 03/13/20 09:12 MB [id number]) Current Condition History of Current Condition Onset Date 03/07/20 Current Complaints Right knee pain and weakness History of Current Condition Pt is s/p right TKR 03/07/20. Pt has a history of B knee OA, left thumb arthritis, neck arthritis and back arthritis and injections in neck and back. Pt sees chiroprator 2x/ month and massage therapist 1x /month for her neck and back. She has also had work done on her TMJ. She has a thyroid issue. Pt is very active, rides horses and does agility with her dog. Pt reports 7-8/10 pain in her right knee, lateral and posterior leg. The greatest pain is in her groin. She is wearing compression. Prior Treatments and Tests R TKR, back and neck injections, PT in the past. She had a good experience with PT in the past. Treatment Goals Patient/Caregiver Goals I want to get back to riding and pickle ball. PT-OP-C Subjective Start: 03/08/20 14:41 Freq: Status: Active Protocol: Document 05/03/20 12:59 [facility] (Rec: 05/03/20 15:05 [facility] [id number]) OP-PT Subjective Patient Comments Patient Comments Pt reprots being sore after last yesterday but iced and used tylenol to help PT-OP-G Mobility & Gait Start: 03/08/20 14:41 Freq: Status: Active Protocol: Document 03/13/20 09:00 MB (Rec: 03/13/20 13:40 MB [id number]) OP Mobility Evaluation Bed Mobility Rolling Pt uses left leg to lift her right leg onto the mat with left toes and forefoot hooked around the back of right distal leg Transfers Sit to Stand Right leg out in front and heavy UE use OP Gait Assessment Gait Gait Assistance Required: Independent Distance (Feet) 75 Able to Maintain Weight Bearing Status Yes During Gait Assistive Devices Assistive Device Front Wheeled Walker Orthotic/Prosthetic Devices or Brace: Yes Gait Deviations General Gait Pattern Antalgic,Decreased Stride Length,Decreased Feet Clearance,Flexed Trunk Factors Limiting Gait Function Factors Limiting Gait Function Decreased Activity Tolerance, Decreased Strength,Limited Range of Motion,Pain Comments Gait Comments Pt's walker is too short for her upon arrival and PT raises it 2 and she is able to gait train better upright. Initially, she has antalgic gait with little heel strike, push off on toes and right knee flexion and hip flexion and extension on the RLE. After gentle manual work after assessment, pt's step-length, upright and heel strike is better. PT-OP-K Range of Motion Start: 03/08/20 14:41 Freq: Status: Active Protocol: Document 03/13/20 09:00 MB (Rec: 03/13/20 13:40 MB [id number]) Knee Goniometric Range of Motion Knee Left Knee ROM WFL Yes Right Knee ROM WFL No Patient Position Long sitting Flexion Active (degrees) 70 Extension Active (degrees) 8 PT-OP-M Strength Start: 03/08/20 14:41 Freq: Status: Active Protocol: Document 03/13/20 09:00 MB (Rec: 03/13/20 13:40 MB [id number]) Hip Strength Hip Manual Muscle Testing Left Flexion (L2) 5 Normal Abduction 5 Normal Right Comments Deferred hip and knee MMT d/t pt reports of high pain Knee Strength Knee Manual Muscle Testing Left Flexion (S2) 5 Normal Extension (L3) 5 Normal Right Comments MMT deferred d/t high pain at rest and with limited AROM Ankle/Foot Strength Ankle and Foot Manual Muscle Testing Left Dorsiflexion (L4) 5 Normal Inversion 5 Normal Eversion (S1) 5 Normal Right Dorsiflexion (L4) 5 Normal Inversion 5 Normal Eversion (S1) 5 Normal Toe Strength Toe Manual Muscle Testing Left Great Toe Extension 5 Normal Right Great Toe Extension 5 Normal PT-OP-Q Treatments Start: 03/08/20 14:41 Freq: Status: Active Protocol: Document 05/03/20 12:59 [facility] (Rec: 05/03/20 15:05 [facility] [id number]) Gym Equipment Shuttle Recovery Bilateral Squats Resistance 62lb Shuttle Recovery Platform Stable Reps/Time 2x20, toes up w/ half foam roll 2nd set Therapeutic Exercises Supine Exercises quad set Supine Exercise Name w/manual facilitation Side right Reps/Minutes 5 sec x6 Comments edu to work on this w/self facil at home to maintain ROM R knee flexion over swill ball Side right Resistance AROM Equipment Used 55cm syrian ball Reps/Minutes x10 Manual Therapy Treatment Soft Tissue Mobilization Quad Body Location R Mobilization Type Myofascial Release,Rolling, Strumming Intensity/Depth Moderate Comments in melany test position scar mob Body Location R Mobilization Type Myofascial Release,Rolling Comments in melany test position, w/ dycem w/knee flex w/ball, w/ seated flex Joint Mobilizations Patellofemoral Joint R Direction inf, sup, med FM w/quad sets, aps Grade III Body Position Supine Manual Techniques c/r Type HS 3 way c/r (hip flex, add, IR) PT-OP-R Modalities Start: 03/08/20 14:41 Freq: Status: Active Protocol: Document 05/03/20 12:59 [facility] (Rec: 05/03/20 15:05 [facility] [id number]) Hot Pack/Cold Pack Treatment CP Location knee A/P Patient Position Hooklying Treatment Duration (minutes) 10 Patient Tolerance Good Comments good tolerance PT-OP-T Assessment and Plan Start: 03/08/20 14:41 Freq: Status: Active Protocol: Document 05/03/20 12:59 [facility] (Rec: 05/03/20 15:05 [facility] [id number]) Physical Therapy Assessment Goals 6 Mechanical Integrity Specialist Goal (LTG) Pt will present with improved right knee AROM equal to the left to improve sit to stands and gait pattern by 06/18/2020. 04/20/20: Supine AROM 20-90 deg ; sitting flexion 92 deg. Pt is able to get a full revolution on bike with seat at 7 first try today. After hook lying clam with band supine AROM right knee 15-90 deg 04/30/20: Pre AROM R knee on shuttle leg press: 93 deg Stationary lunge: 97 deg pre Stationary lunge: 101 deg post manual HS AROM: 103 deg LTG Duration 8 weeks 5 Mechanical Integrity Specialist Goal (LTG) Pt will perform at least 20 reps of sit to stands without UE support in 30 sec to reflect improved functional transfers and strength by 06/18. 04/20/20: Pt with right foot forward and performs 13 reps in 30 sec. She reports 4-5/10 right knee pain LTG Duration 8 weeks 4 Mechanical Integrity Specialist Goal (LTG) Pt will perform progressive HEP with I including range of motion, strengthening, flexibility, balance and gait exercises to improve overall functional strength by 2020. 04/20/20: Pt to focus on ascend and descend steps with good form and clam in hook lying with band, HS and knee extension right knee, pelvic realignment, pelvic clock, sit to stand, stationary lunge. LTG Duration 8 weeks 3 Mechanical Integrity Specialist Goal (LTG) Pt will ascend and descend 3 steps with receiprocal gait and no AD or rail to allow safe home entrance and exit by 06/18/2020. 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 04/20/20: Pt gait trains 1430 feet without AD and with reports of 2/10 right knee pain. She presents with better upright, speed and ongoing right knee valgus and decreased heel and toe push off. 9 deg valgus right knee in standing. LTG Duration 8 weeks 1 Mechanical Integrity Specialist Goal (LTG) Pt will present with an improved LEF score to reflect no more than 20% impairment to prepare to return to horse and dog ownership tasks by 06/01. 04/20/20: LEF score is 39/80, refecting 51.25% impairment LTG Duration 8 weeks Assessment Summary Assessment Pt responded well to treatment today with starting ROM of 9- 101 degrees. After manual treatment, pt had 5-106 degrees ROM w/improved patellar and scar mobility with mobility. W/ball flex, pt reported comfortable range to about 99 deg after manual. Physical Therapy Plan Frequency and Duration Frequency of Treatment 3-5x/wk Duration of Treatment 8 weeks Plan of Care Start Date 04/20/20 Plan of Care End Date 06/18/20 Next Visit Focus/Plan Next Note Type Treatment Note Next Visit Plan soft tissue release to scar & mm w/knee ROM, cont to work on inc ROM as tolerated
--- NOTE | 2020-05-04 13:47 | PT.OTN ---
Current Diagnoses Unilateral primary osteoarthritis, right knee (05/04/20) Encounter for other orthopedic aftercare (05/04/20) Physical Therapy Treatment Note PT-OP-A Visit Information Start: 03/08/20 14:41 Freq: Status: Active Protocol: Document 05/04/20 09:50 MA (Rec: 05/04/20 10:31 MA [id number]) Out-Patient Physical Therapy Visit Information Visit Information Visit Type Treatment Note Visit Start Time 09:45 Visit Stop Time 10:35 Total Visit Minutes 50 Visit Number 24 Number of EMPLOYMENT CONSULTANT Visits 1 PT-OP-B Current Condition Start: 03/08/20 14:41 Freq: Status: Active Protocol: Document 03/13/20 09:00 MB (Rec: 03/13/20 09:12 MB [id number]) Current Condition History of Current Condition Onset Date 03/07/20 Current Complaints Right knee pain and weakness History of Current Condition Pt is s/p right TKR 03/07/20. Pt has a history of B knee OA, left thumb arthritis, neck arthritis and back arthritis and injections in neck and back. Pt sees chiroprator 2x/ month and massage therapist 1x /month for her neck and back. She has also had work done on her TMJ. She has a thyroid issue. Pt is very active, rides horses and does agility with her dog. Pt reports 7-8/10 pain in her right knee, lateral and posterior leg. The greatest pain is in her groin. She is wearing compression. Prior Treatments and Tests R TKR, back and neck injections, PT in the past. She had a good experience with PT in the past. Treatment Goals Patient/Caregiver Goals I want to get back to riding and pickle ball. PT-OP-C Subjective Start: 03/08/20 14:41 Freq: Status: Active Protocol: Document 05/04/20 09:50 MA (Rec: 05/04/20 10:31 MA [id number]) OP-PT Subjective Patient Comments Patient Comments Pt has been a little sore but not too bad. She states she had her try to push into flexion but he just doesn't do a good job and doesn't push as hard. She has a gym appt tomorrow and wants to use the elliptical and bike PT-OP-G Mobility & Gait Start: 03/08/20 14:41 Freq: Status: Active Protocol: Document 03/13/20 09:00 MB (Rec: 03/13/20 13:40 MB [id number]) OP Mobility Evaluation Bed Mobility Rolling Pt uses left leg to lift her right leg onto the mat with left toes and forefoot hooked around the back of right distal leg Transfers Sit to Stand Right leg out in front and heavy UE use OP Gait Assessment Gait Gait Assistance Required: Independent Distance (Feet) 75 Able to Maintain Weight Bearing Status Yes During Gait Assistive Devices Assistive Device Front Wheeled Walker Orthotic/Prosthetic Devices or Brace: Yes Gait Deviations General Gait Pattern Antalgic,Decreased Stride Length,Decreased Feet Clearance,Flexed Trunk Factors Limiting Gait Function Factors Limiting Gait Function Decreased Activity Tolerance, Decreased Strength,Limited Range of Motion,Pain Comments Gait Comments Pt's walker is too short for her upon arrival and PT raises it 2 and she is able to gait train better upright. Initially, she has antalgic gait with little heel strike, push off on toes and right knee flexion and hip flexion and extension on the RLE. After gentle manual work after assessment, pt's step-length, upright and heel strike is better. PT-OP-K Range of Motion Start: 03/08/20 14:41 Freq: Status: Active Protocol: Document 03/13/20 09:00 MB (Rec: 03/13/20 13:40 MB [id number]) Knee Goniometric Range of Motion Knee Left Knee ROM WFL Yes Right Knee ROM WFL No Patient Position Long sitting Flexion Active (degrees) 70 Extension Active (degrees) 8 PT-OP-M Strength Start: 03/08/20 14:41 Freq: Status: Active Protocol: Document 03/13/20 09:00 MB (Rec: 03/13/20 13:40 MB [id number]) Hip Strength Hip Manual Muscle Testing Left Flexion (L2) 5 Normal Abduction 5 Normal Right Comments Deferred hip and knee MMT d/t pt reports of high pain Knee Strength Knee Manual Muscle Testing Left Flexion (S2) 5 Normal Extension (L3) 5 Normal Right Comments MMT deferred d/t high pain at rest and with limited AROM Ankle/Foot Strength Ankle and Foot Manual Muscle Testing Left Dorsiflexion (L4) 5 Normal Inversion 5 Normal Eversion (S1) 5 Normal Right Dorsiflexion (L4) 5 Normal Inversion 5 Normal Eversion (S1) 5 Normal Toe Strength Toe Manual Muscle Testing Left Great Toe Extension 5 Normal Right Great Toe Extension 5 Normal PT-OP-Q Treatments Start: 03/08/20 14:41 Freq: Status: Active Protocol: Document 05/04/20 09:50 MA (Rec: 05/04/20 10:31 MA [id number]) Cardio Equipment Elliptical Duration (Minutes) 2 Resistance none Other d/c Bicycle (Upright) Duration (Minutes) 8 Resistance 2 Seat Position 5 Other focusing on neutral knee/hip alignment Gym Equipment Shuttle Recovery Bilateral Squats Resistance 62lb Shuttle Recovery Platform Stable Reps/Time 2x20, toes up w/ half foam roll 2nd set Therapeutic Exercises Sitting Exercises quad set Sitting Exercise Name long sit Side right Reps/Minutes x5 watch patella sup/inf glide Comments towel under heel, holding contraction for 5 seconds Manual Therapy Treatment Soft Tissue Mobilization Quad Body Location R Mobilization Type Myofascial Release,Rolling, Strumming Intensity/Depth Moderate Comments in melany test position scar mob Body Location R Mobilization Type Myofascial Release,Rolling Comments in melany test position, w/ dycem w/knee flex w/ball, w/ seated flex Manual Techniques PROM Type PROM into knee flexion Body Position Supine Comments Holding for as long as tolerated -15 min total Self-Care/Home Management Treatment Education Other Education Discussed with pt safe options to use at the gym and reviewed how low to go with the seat for upright biking, watching for compensations. PT-OP-R Modalities Start: 03/08/20 14:41 Freq: Status: Active Protocol: Document 05/04/20 13:41 MA (Rec: 05/04/20 13:42 MA [id number]) Hot Pack/Cold Pack Treatment CP Location knee A/P Patient Position Sitting Treatment Duration (minutes) 10 Patient Tolerance Good Comments Long sitting to stretch knee into extension while icing PT-OP-T Assessment and Plan Start: 03/08/20 14:41 Freq: Status: Active Protocol: Document 05/04/20 09:50 MA (Rec: 05/04/20 10:31 MA [id number]) Physical Therapy Assessment Goals 6 Residential Goal (LTG) Pt will present with improved right knee AROM equal to the left to improve sit to stands and gait pattern by 06/18/2020. 04/20/20: Supine AROM 20-90 deg ; sitting flexion 92 deg. Pt is able to get a full revolution on bike with seat at 7 first try today. After hook lying clam with band supine AROM right knee 15-90 deg 04/30/20: Pre AROM R knee on shuttle leg press: 93 deg Stationary lunge: 97 deg pre Stationary lunge: 101 deg post manual HS AROM: 103 deg LTG Duration 8 weeks 5 Metallographer Goal (LTG) Pt will perform at least 20 reps of sit to stands without UE support in 30 sec to reflect improved functional transfers and strength by 06/18. 04/20/20: Pt with right foot forward and performs 13 reps in 30 sec. She reports 4-5/10 right knee pain LTG Duration 8 weeks 4 Residential Goal (LTG) Pt will perform progressive HEP with I including range of motion, strengthening, flexibility, balance and gait exercises to improve overall functional strength by 2020. 04/20/20: Pt to focus on ascend and descend steps with good form and clam in hook lying with band, HS and knee extension right knee, pelvic realignment, pelvic clock, sit to stand, stationary lunge. LTG Duration 8 weeks 3 Residential Goal (LTG) Pt will ascend and descend 3 steps with receiprocal gait and no AD or rail to allow safe home entrance and exit by 06/18/2020. 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 04/20/20: Pt gait trains 1430 feet without AD and with reports of 2/10 right knee pain. She presents with better upright, speed and ongoing right knee valgus and decreased heel and toe push off. 9 deg valgus right knee in standing. LTG Duration 8 weeks 1 Residential Goal (LTG) Pt will present with an improved LEF score to reflect no more than 20% impairment to prepare to return to horse and dog ownership tasks by 06/01. 04/20/20: LEF score is 39/80, refecting 51.25% impairment LTG Duration 8 weeks Assessment Summary Assessment Pt was able to get to 109 degrees PROM knee flexion on the right side at end of session. She feels good with the progress she is making now that her swelling has gone down. Spoke with the pt about not overdoing it at the gym tomorrow when she goes. Attempted upright biking and the elliptical here at therapy with the pt only able to safely work out on the bike without increased pain. She was able to lower the seat on the bike today from previous sessions due to increased knee ROM. Physical Therapy Plan Frequency and Duration Frequency of Treatment 3-5x/wk Duration of Treatment 8 weeks Plan of Care Start Date 04/20/20 Plan of Care End Date 06/18/20 Therapeutic Interventions Therapeutic Interventions Balance Training,Canalithic Repositioning,Gait Training, Home Exercise Program,Joint Mobilizations,Manual Therapy, Neuromuscular Re-education, Patient/Caregiver Education, Self-Care/Home Management,Soft Tissue Mobilization,Taping, Therapeutic Activities, Therapeutic Exercises Modalities Cold Pack/Ice Massage,Electric Stimulation,Hot Packs, Ultrasound Next Visit Focus/Plan Next Note Type Treatment Note Next Visit Plan soft tissue release to scar & mm w/knee ROM, cont to work on inc ROM as tolerated
--- NOTE | 2020-05-08 14:14 | PT.OTN ---
Current Diagnoses Unilateral primary osteoarthritis, right knee (05/08/20) Encounter for other orthopedic aftercare (05/08/20) Physical Therapy Treatment Note PT-OP-A Visit Information Start: 03/08/20 14:41 Freq: Status: Active Protocol: Document 05/08/20 09:00 MB (Rec: 05/08/20 09:42 MB [id number]) Out-Patient Physical Therapy Visit Information Visit Information Visit Type Progress Note Visit Start Time 09:00 Visit Stop Time 09:45 Total Visit Minutes 45 Visit Number 25 Number of OUTSIDE SALESMAN Visits 0 PT-OP-B Current Condition Start: 03/08/20 14:41 Freq: Status: Active Protocol: Document 03/13/20 09:00 MB (Rec: 03/13/20 09:12 MB [id number]) Current Condition History of Current Condition Onset Date 03/07/20 Current Complaints Right knee pain and weakness History of Current Condition Pt is s/p right TKR 03/07/20. Pt has a history of B knee OA, left thumb arthritis, neck arthritis and back arthritis and injections in neck and back. Pt sees chiroprator 2x/ month and massage therapist 1x /month for her neck and back. She has also had work done on her TMJ. She has a thyroid issue. Pt is very active, rides horses and does agility with her dog. Pt reports 7-8/10 pain in her right knee, lateral and posterior leg. The greatest pain is in her groin. She is wearing compression. Prior Treatments and Tests R TKR, back and neck injections, PT in the past. She had a good experience with PT in the past. Treatment Goals Patient/Caregiver Goals I want to get back to riding and pickle ball. PT-OP-C Subjective Start: 03/08/20 14:41 Freq: Status: Active Protocol: Document 05/08/20 09:00 MB (Rec: 05/08/20 09:42 MB [id number]) OP-PT Subjective Patient Comments Patient Comments Pt fills PT in about the last week. I'm walking my normal speed. Pt is going to the gym and she is starting to prune. She is riding more. She reports that the surgeon will likely want her to have another manipulation. PT-OP-G Mobility & Gait Start: 03/08/20 14:41 Freq: Status: Active Protocol: Document 03/13/20 09:00 MB (Rec: 03/13/20 13:40 MB [id number]) OP Mobility Evaluation Bed Mobility Rolling Pt uses left leg to lift her right leg onto the mat with left toes and forefoot hooked around the back of right distal leg Transfers Sit to Stand Right leg out in front and heavy UE use OP Gait Assessment Gait Gait Assistance Required: Independent Distance (Feet) 75 Able to Maintain Weight Bearing Status Yes During Gait Assistive Devices Assistive Device Front Wheeled Walker Orthotic/Prosthetic Devices or Brace: Yes Gait Deviations General Gait Pattern Antalgic,Decreased Stride Length,Decreased Feet Clearance,Flexed Trunk Factors Limiting Gait Function Factors Limiting Gait Function Decreased Activity Tolerance, Decreased Strength,Limited Range of Motion,Pain Comments Gait Comments Pt's walker is too short for her upon arrival and PT raises it 2 and she is able to gait train better upright. Initially, she has antalgic gait with little heel strike, push off on toes and right knee flexion and hip flexion and extension on the RLE. After gentle manual work after assessment, pt's step-length, upright and heel strike is better. PT-OP-K Range of Motion Start: 03/08/20 14:41 Freq: Status: Active Protocol: Document 03/13/20 09:00 MB (Rec: 03/13/20 13:40 MB [id number]) Knee Goniometric Range of Motion Knee Left Knee ROM WFL Yes Right Knee ROM WFL No Patient Position Long sitting Flexion Active (degrees) 70 Extension Active (degrees) 8 PT-OP-M Strength Start: 03/08/20 14:41 Freq: Status: Active Protocol: Document 03/13/20 09:00 MB (Rec: 03/13/20 13:40 MB [id number]) Hip Strength Hip Manual Muscle Testing Left Flexion (L2) 5 Normal Abduction 5 Normal Right Comments Deferred hip and knee MMT d/t pt reports of high pain Knee Strength Knee Manual Muscle Testing Left Flexion (S2) 5 Normal Extension (L3) 5 Normal Right Comments MMT deferred d/t high pain at rest and with limited AROM Ankle/Foot Strength Ankle and Foot Manual Muscle Testing Left Dorsiflexion (L4) 5 Normal Inversion 5 Normal Eversion (S1) 5 Normal Right Dorsiflexion (L4) 5 Normal Inversion 5 Normal Eversion (S1) 5 Normal Toe Strength Toe Manual Muscle Testing Left Great Toe Extension 5 Normal Right Great Toe Extension 5 Normal PT-OP-Q Treatments Start: 03/08/20 14:41 Freq: Status: Active Protocol: Document 05/08/20 09:00 MB (Rec: 05/08/20 09:42 MB [id number]) Cardio Equipment Bicycle (Upright) Duration (Minutes) 5 Resistance 6 Seat Position 5 Therapeutic Exercises Supine Exercises AP, HS, GS, hip abduction and adduction Comments R knee flexion and extension for testing today,see goals Sitting Exercises LAQ with band around knees Side bilateral Comments 5 reps B, level 1 and 2 bands Sit to stands without UE support Comments 16 reps in 30 sec today Other Exercises Revised HEP Comments Reviewed current exercises today, see HEP goal Gait Training Gait Activity Gait without AD Comments Multiple gait trials during treatment, up to 8'. Pt con't with right knee valgus that is better before flexion exercises in supine and sitting and more pronounced afterwards. She has better sabrina today and the right leg con't to appear functionally longer. 6MWT 1720 feet today, met goal and will make more challenging goal. Self-Care/Home Management Treatment Education Other Education Ed pt on future PT treatments: will con't to assess hip mobility and address limited right hip ER and IR compared to the left with manual intervention and exercises. Ed pt to con't with functional exercises at home (riding, agility training, stair training). Will also consider lift for left shoe. PT-OP-R Modalities Start: 03/08/20 14:41 Freq: Status: Active Protocol: Document 05/04/20 13:41 MA (Rec: 05/04/20 13:42 MA [id number]) Hot Pack/Cold Pack Treatment CP Location knee A/P Patient Position Sitting Treatment Duration (minutes) 10 Patient Tolerance Good Comments Long sitting to stretch knee into extension while icing PT-OP-T Assessment and Plan Start: 03/08/20 14:41 Freq: Status: Active Protocol: Document 05/08/20 09:00 MB (Rec: 05/08/20 09:42 MB [id number]) Physical Therapy Assessment Rehab Potential Rehabilitation Potential Good Evaluation Complexity Number of Personal Factors/Comorbidities 1-2 Number of Body Systems Impaired 1-2 Clinical Presentation at Evaluation Stable Impairments Impairments Balance,Edema,Functional Activities,Functional Mobility ,Gait,Integument,Pain,Posture, ROM,Soft Tissue Mobility, Strength Goals 6 Employment Security Officer Goal (LTG) Pt will present with improved right knee AROM equal to the left to improve sit to stands and gait pattern by 07/08/2020. 05/08/20: Pt supine today with AROM left knee: 1-135 deg; right knee: 10-90 deg. Long sitting extension -10 as well and sitting knee flexion 95 deg. LTG Duration 8 weeks 5 Detention Goal (LTG) Pt will perform at least 20 reps of sit to stands without UE support in 30 sec to reflect improved functional transfers and strength by . 05/08/20: Pt performs 16 reps in 30 sec with right foot slightly in front of the left foot and she has 3/10 mild more lateral quad pain LTG Duration 8 weeks 4 Employment Security Officer Goal (LTG) Pt will perform progressive HEP with I including range of motion, strengthening, flexibility, balance and gait exercises to improve overall functional strength by 2020. 05/08/20: Pt is working on bending her knee at home in supine and prone with assist. She is working on stair training. LTG Duration 8 weeks 3 Detention Goal (LTG) Pt will ascend and descend 3 steps with receiprocal gait and no AD or rail to allow safe home entrance and exit by 06/18/2020. 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 04/20/20: Pt gait trains 1720 feet without AD and with reports of 2/10 right knee pain. LTG Duration 8 weeks 1 Employment Security Officer Goal (LTG) Pt will present with an improved LEF score to reflect no more than 20% impairment to prepare to return to horse and dog ownership tasks by 07/08. 05/08/20: LEF score is 46/80, refecting 47.5% impairment and this is an improvement since last progress note LTG Duration 8 weeks Assessment Summary Assessment Pt has progressed towards all PT goals since last progress note. These include ROM, gait, sit to stands, stair ambulation, performance of exercises and LEF score. Pt states that she may have to have another closed manipulation. She did have a lot of right medial femur pain after last manipulation and PT is concerned about her bone integrity if she undergoes another manipulation given post-menopausal caucasion female. Also, her edema is great and increases pain and decreases range after all manual interventions. Despite vaglus right knee, pt presents with functional leg length difference with gait with the right leg longer. Will try an insert in the left shoe in future treatments. Pt presents with decreased passive right hip ER and IR compared to the left and this may affect right knee valgus and decreased ROM. Will address this in future PT sessions. Pt will benefit from ongoing PT to improve gait quality, pain, range, balance and strength. Physical Therapy Plan Frequency and Duration Frequency of Treatment 3-5x/wk Duration of Treatment 8 weeks Plan of Care Start Date 05/08/20 Plan of Care End Date 07/09/20 Therapeutic Interventions Therapeutic Interventions Balance Training,Canalithic Repositioning,Gait Training, Home Exercise Program,Joint Mobilizations,Manual Therapy, Neuromuscular Re-education, Patient/Caregiver Education, Self-Care/Home Management,Soft Tissue Mobilization,Taping, Therapeutic Activities, Therapeutic Exercises Modalities Cold Pack/Ice Massage,Electric Stimulation,Hot Packs, Ultrasound Next Visit Focus/Plan Next Note Type Treatment Note Next Visit Plan Consider left insert to help even functional leg length difference. Manual work for right hip--mobs and STM. Finger/edema taping for the right knee as appropriate. Ongoing manual work and hip and knee ROM, hip strengthening.
--- NOTE | 2020-05-08 14:14 | PT.OPPOC ---
Physical, Occupational & Speech Therapy At [facility] Current Diagnoses Unilateral primary osteoarthritis, right knee (05/08/20) Encounter for other orthopedic aftercare (05/08/20) Visit Care Team Role Provider Type Antonio Sim MD Primary Care Provider Physician Specialty: Internal Medicine Address: [address] [place] [address], [facility] [address], [place], [address] Email: [email or web address] Dallas Gama MD Attending Provider Non-Staff Referring Provider Specialty: Orthopedic Surgery Address: [address] [place] [address], [id number] Email: Plan Of Care PT-OP-T Assessment and Plan Start: 03/08/20 14:41 Freq: Status: Active Protocol: Document 05/08/20 09:00 MB (Rec: 05/08/20 09:42 MB [id number]) Physical Therapy Assessment Rehab Potential Rehabilitation Potential Good Evaluation Complexity Number of Personal Factors/Comorbidities 1-2 Number of Body Systems Impaired 1-2 Clinical Presentation at Evaluation Stable Impairments Impairments Balance,Edema,Functional Activities,Functional Mobility ,Gait,Integument,Pain,Posture, ROM,Soft Tissue Mobility, Strength Goals 6 Morphologist Goal (LTG) Pt will present with improved right knee AROM equal to the left to improve sit to stands and gait pattern by 07/08/2020. 05/08/20: Pt supine today with AROM left knee: 1-135 deg; right knee: 10-90 deg. Long sitting extension -10 as well and sitting knee flexion 95 deg. LTG Duration 8 weeks 5 Care Home Goal (LTG) Pt will perform at least 20 reps of sit to stands without UE support in 30 sec to reflect improved functional transfers and strength by . 05/08/20: Pt performs 16 reps in 30 sec with right foot slightly in front of the left foot and she has 3/10 mild more lateral quad pain LTG Duration 8 weeks 4 Care Home Goal (LTG) Pt will perform progressive HEP with I including range of motion, strengthening, flexibility, balance and gait exercises to improve overall functional strength by 2020. 05/08/20: Pt is working on bending her knee at home in supine and prone with assist. She is working on stair training. LTG Duration 8 weeks 3 Morphologist Goal (LTG) Pt will ascend and descend 3 steps with receiprocal gait and no AD or rail to allow safe home entrance and exit by 06/18/2020. 05/08/20: Improvement in descending steps and pt does con't to place left toes down when stepping reciprocally LTG Duration 8 weeks 2 Morphologist Goal (LTG) Pt will gait train at least 1800 feet without AD in 6 minutes to improve ambulation for pasture and farm tasks by 06/18/2020. 04/20/20: Pt gait trains 1720 feet without AD and with reports of 2/10 right knee pain. LTG Duration 8 weeks 1 Care Home Goal (LTG) Pt will present with an improved LEF score to reflect no more than 20% impairment to prepare to return to horse and dog ownership tasks by 07/08. 05/08/20: LEF score is 46/80, refecting 47.5% impairment and this is an improvement since last progress note LTG Duration 8 weeks Assessment Summary Assessment Pt has progressed towards all PT goals since last progress note. These include ROM, gait, sit to stands, stair ambulation, performance of exercises and LEF score. Pt states that she may have to have another closed manipulation. She did have a lot of right medial femur pain after last manipulation and PT is concerned about her bone integrity if she undergoes another manipulation given post-menopausal caucasion female. Also, her edema is great and increases pain and decreases range after all manual interventions. Despite vaglus right knee, pt presents with functional leg length difference with gait with the right leg longer. Will try an insert in the left shoe in future treatments. Pt presents with decreased passive right hip ER and IR compared to the left and this may affect right knee valgus and decreased ROM. Will address this in future PT sessions. Pt will benefit from ongoing PT to improve gait quality, pain, range, balance and strength. Physical Therapy Plan Frequency and Duration Frequency of Treatment 3-5x/wk Duration of Treatment 8 weeks Plan of Care Start Date 05/08/20 Plan of Care End Date 07/09/20 Therapeutic Interventions Therapeutic Interventions Balance Training,Canalithic Repositioning,Gait Training, Home Exercise Program,Joint Mobilizations,Manual Therapy, Neuromuscular Re-education, Patient/Caregiver Education, Self-Care/Home Management,Soft Tissue Mobilization,Taping, Therapeutic Activities, Therapeutic Exercises Modalities Cold Pack/Ice Massage,Electric Stimulation,Hot Packs, Ultrasound Next Visit Focus/Plan Next Note Type Treatment Note Next Visit Plan Consider left insert to help even functional leg length difference. Manual work for right hip--mobs and STM. Finger/edema taping for the right knee as appropriate. Ongoing manual work and hip and knee ROM, hip strengthening. Plan of Care Dates Plan of Care Start Date 05/08/20 Plan of Care End Date 07/09/20 Electronically Signed by: Mariela Tavarez, PT 05/08/20 1451 Please Sign and Return: I have reviewed this Plan of Care and certify that the skilled therapy services above are required to meet the patient?s needs. Physician Signature Date Printed Name and Credentials Clinical Instructor Signature Printed Name and Credentials
--- NOTE | 2020-05-11 09:43 | PT.OTN ---
Current Diagnoses Unilateral primary osteoarthritis, right knee (05/11/20) Encounter for other orthopedic aftercare (05/11/20) Physical Therapy Treatment Note PT-OP-A Visit Information Start: 03/08/20 14:41 Freq: Status: Active Protocol: Document 05/11/20 09:01 MB (Rec: 05/11/20 09:26 MB [id number]) Out-Patient Physical Therapy Visit Information Visit Information Visit Type Treatment Note Visit Start Time 09:01 Visit Stop Time 09:41 Total Visit Minutes 40 Visit Number 26 PT-OP-B Current Condition Start: 03/08/20 14:41 Freq: Status: Active Protocol: Document 03/13/20 09:00 MB (Rec: 03/13/20 09:12 MB [id number]) Current Condition History of Current Condition Onset Date 03/07/20 Current Complaints Right knee pain and weakness History of Current Condition Pt is s/p right TKR 03/07/20. Pt has a history of B knee OA, left thumb arthritis, neck arthritis and back arthritis and injections in neck and back. Pt sees chiroprator 2x/ month and massage therapist 1x /month for her neck and back. She has also had work done on her TMJ. She has a thyroid issue. Pt is very active, rides horses and does agility with her dog. Pt reports 7-8/10 pain in her right knee, lateral and posterior leg. The greatest pain is in her groin. She is wearing compression. Prior Treatments and Tests R TKR, back and neck injections, PT in the past. She had a good experience with PT in the past. Treatment Goals Patient/Caregiver Goals I want to get back to riding and pickle ball. PT-OP-C Subjective Start: 03/08/20 14:41 Freq: Status: Active Protocol: Document 05/11/20 09:01 MB (Rec: 05/11/20 09:26 MB [id number]) OP-PT Subjective Patient Comments Patient Comments Pt states that the stiffening is about gone when she walks except after she has sat for a long time. PT-OP-G Mobility & Gait Start: 03/08/20 14:41 Freq: Status: Active Protocol: Document 03/13/20 09:00 MB (Rec: 03/13/20 13:40 MB [id number]) OP Mobility Evaluation Bed Mobility Rolling Pt uses left leg to lift her right leg onto the mat with left toes and forefoot hooked around the back of right distal leg Transfers Sit to Stand Right leg out in front and heavy UE use OP Gait Assessment Gait Gait Assistance Required: Independent Distance (Feet) 75 Able to Maintain Weight Bearing Status Yes During Gait Assistive Devices Assistive Device Front Wheeled Walker Orthotic/Prosthetic Devices or Brace: Yes Gait Deviations General Gait Pattern Antalgic,Decreased Stride Length,Decreased Feet Clearance,Flexed Trunk Factors Limiting Gait Function Factors Limiting Gait Function Decreased Activity Tolerance, Decreased Strength,Limited Range of Motion,Pain Comments Gait Comments Pt's walker is too short for her upon arrival and PT raises it 2 and she is able to gait train better upright. Initially, she has antalgic gait with little heel strike, push off on toes and right knee flexion and hip flexion and extension on the RLE. After gentle manual work after assessment, pt's step-length, upright and heel strike is better. PT-OP-K Range of Motion Start: 03/08/20 14:41 Freq: Status: Active Protocol: Document 03/13/20 09:00 MB (Rec: 03/13/20 13:40 MB [id number]) Knee Goniometric Range of Motion Knee Left Knee ROM WFL Yes Right Knee ROM WFL No Patient Position Long sitting Flexion Active (degrees) 70 Extension Active (degrees) 8 PT-OP-M Strength Start: 03/08/20 14:41 Freq: Status: Active Protocol: Document 03/13/20 09:00 MB (Rec: 03/13/20 13:40 MB [id number]) Hip Strength Hip Manual Muscle Testing Left Flexion (L2) 5 Normal Abduction 5 Normal Right Comments Deferred hip and knee MMT d/t pt reports of high pain Knee Strength Knee Manual Muscle Testing Left Flexion (S2) 5 Normal Extension (L3) 5 Normal Right Comments MMT deferred d/t high pain at rest and with limited AROM Ankle/Foot Strength Ankle and Foot Manual Muscle Testing Left Dorsiflexion (L4) 5 Normal Inversion 5 Normal Eversion (S1) 5 Normal Right Dorsiflexion (L4) 5 Normal Inversion 5 Normal Eversion (S1) 5 Normal Toe Strength Toe Manual Muscle Testing Left Great Toe Extension 5 Normal Right Great Toe Extension 5 Normal PT-OP-Q Treatments Start: 03/08/20 14:41 Freq: Status: Active Protocol: Document 05/11/20 09:01 MB (Rec: 05/11/20 09:26 MB [id number]) Therapeutic Exercises Supine Exercises Happy baby Side bilateral Comments 45 sec x3 Alexander stretch Side right Comments 2 reps, 45 sec hold, cues to bent left leg Other Exercises Mini squat and standing adductor stretch Comments Performed several times amidst gait trials Gait Training Gait Activity Gait without AD Comments Multiple gait trials without 1 /16 lift in left shoe and then with it and her gait is a little better with the lift in her left shoe--squat adductor stretch and happy baby in between gait trials and this makes her initially stiff with gait. She presents with improved pelvic movement (better even) and mildly less valgus right knee with gait with 1/16 lift in left shoe Manual Therapy Treatment Other Other Manual Treatments STM right hip adductors and hamstring, medial knee at proximal gastroc and over lumpy area, AROM from pt for knee extension and flexion and ankle DF and PF PT-OP-R Modalities Start: 03/08/20 14:41 Freq: Status: Active Protocol: Document 05/04/20 13:41 MA (Rec: 05/04/20 13:42 MA [id number]) Hot Pack/Cold Pack Treatment CP Location knee A/P Patient Position Sitting Treatment Duration (minutes) 10 Patient Tolerance Good Comments Long sitting to stretch knee into extension while icing PT-OP-T Assessment and Plan Start: 03/08/20 14:41 Freq: Status: Active Protocol: Document 05/11/20 09:01 MB (Rec: 05/11/20 09:26 MB [id number]) Physical Therapy Assessment Rehab Potential Rehabilitation Potential Good Evaluation Complexity Number of Personal Factors/Comorbidities 1-2 Number of Body Systems Impaired 1-2 Clinical Presentation at Evaluation Stable Impairments Impairments Balance,Edema,Functional Activities,Functional Mobility ,Gait,Integument,Pain,Posture, ROM,Soft Tissue Mobility, Strength Goals 6 Halfway Goal (LTG) Pt will present with improved right knee AROM equal to the left to improve sit to stands and gait pattern by 07/08/2020. 05/08/20: Pt supine today with AROM left knee: 1-135 deg; right knee: 10-90 deg. Long sitting extension -10 as well and sitting knee flexion 95 deg. LTG Duration 8 weeks 5 Halfway Goal (LTG) Pt will perform at least 20 reps of sit to stands without UE support in 30 sec to reflect improved functional transfers and strength by . 05/08/20: Pt performs 16 reps in 30 sec with right foot slightly in front of the left foot and she has 3/10 mild more lateral quad pain LTG Duration 8 weeks 4 Halfway Goal (LTG) Pt will perform progressive HEP with I including range of motion, strengthening, flexibility, balance and gait exercises to improve overall functional strength by 2020. 05/08/20: Pt is working on bending her knee at home in supine and prone with assist. She is working on stair training. LTG Duration 8 weeks 3 Halfway Goal (LTG) Pt will ascend and descend 3 steps with receiprocal gait and no AD or rail to allow safe home entrance and exit by 06/18/2020. 05/08/20: Improvement in descending steps and pt does con't to place left toes down when stepping reciprocally LTG Duration 8 weeks 2 Pyrotechnic Assembler Goal (LTG) Pt will gait train at least 1800 feet without AD in 6 minutes to improve ambulation for pasture and farm tasks by 06/18/2020. 04/20/20: Pt gait trains 1720 feet without AD and with reports of 2/10 right knee pain. LTG Duration 8 weeks 1 Halfway Goal (LTG) Pt will present with an improved LEF score to reflect no more than 20% impairment to prepare to return to horse and dog ownership tasks by 07/08. 05/08/20: LEF score is 46/80, refecting 47.5% impairment and this is an improvement since last progress note LTG Duration 8 weeks Assessment Summary Assessment 03/17 cork lift in left shoe does mildly help gait today and may consider adding more. Initiated hip adductor flexibility today and work on this area and proximal medial gastroc. Con't progression. Physical Therapy Plan Frequency and Duration Frequency of Treatment 3-5x/wk Duration of Treatment 8 weeks Plan of Care Start Date 05/08/20 Plan of Care End Date 07/09/20 Therapeutic Interventions Therapeutic Interventions Balance Training,Canalithic Repositioning,Gait Training, Home Exercise Program,Joint Mobilizations,Manual Therapy, Neuromuscular Re-education, Patient/Caregiver Education, Self-Care/Home Management,Soft Tissue Mobilization,Taping, Therapeutic Activities, Therapeutic Exercises Modalities Cold Pack/Ice Massage,Electric Stimulation,Hot Packs, Ultrasound Next Visit Focus/Plan Next Note Type Treatment Note Next Visit Plan Consider adding another 03/17 lift to left shoe and assess gait before and after Ongoing hip mobility and manual work medial proximal gastroc
--- NOTE | 2020-05-15 09:56 | PT.OTN ---
Current Diagnoses Unilateral primary osteoarthritis, right knee (05/15/20) Encounter for other orthopedic aftercare (05/15/20) Physical Therapy Treatment Note PT-OP-A Visit Information Start: 03/08/20 14:41 Freq: Status: Active Protocol: Document 05/15/20 08:58 MB (Rec: 05/15/20 09:44 MB [id number]) Out-Patient Physical Therapy Visit Information Visit Information Visit Type Treatment Note Visit Start Time 08:58 Visit Stop Time 09:43 Total Visit Minutes 45 Visit Number 27 PT-OP-B Current Condition Start: 03/08/20 14:41 Freq: Status: Active Protocol: Document 03/13/20 09:00 MB (Rec: 03/13/20 09:12 MB [id number]) Current Condition History of Current Condition Onset Date 03/07/20 Current Complaints Right knee pain and weakness History of Current Condition Pt is s/p right TKR 03/07/20. Pt has a history of B knee OA, left thumb arthritis, neck arthritis and back arthritis and injections in neck and back. Pt sees chiroprator 2x/ month and massage therapist 1x /month for her neck and back. She has also had work done on her TMJ. She has a thyroid issue. Pt is very active, rides horses and does agility with her dog. Pt reports 7-8/10 pain in her right knee, lateral and posterior leg. The greatest pain is in her groin. She is wearing compression. Prior Treatments and Tests R TKR, back and neck injections, PT in the past. She had a good experience with PT in the past. Treatment Goals Patient/Caregiver Goals I want to get back to riding and pickle ball. PT-OP-C Subjective Start: 03/08/20 14:41 Freq: Status: Active Protocol: Document 05/15/20 08:58 MB (Rec: 05/15/20 09:44 MB [id number]) OP-PT Subjective Patient Comments Patient Comments I see the doctor on . I would like to be able to run. PT asks about this and pt states to do agility training with dog and play pickle ball. PT-OP-G Mobility & Gait Start: 03/08/20 14:41 Freq: Status: Active Protocol: Document 03/13/20 09:00 MB (Rec: 03/13/20 13:40 MB [id number]) OP Mobility Evaluation Bed Mobility Rolling Pt uses left leg to lift her right leg onto the mat with left toes and forefoot hooked around the back of right distal leg Transfers Sit to Stand Right leg out in front and heavy UE use OP Gait Assessment Gait Gait Assistance Required: Independent Distance (Feet) 75 Able to Maintain Weight Bearing Status Yes During Gait Assistive Devices Assistive Device Front Wheeled Walker Orthotic/Prosthetic Devices or Brace: Yes Gait Deviations General Gait Pattern Antalgic,Decreased Stride Length,Decreased Feet Clearance,Flexed Trunk Factors Limiting Gait Function Factors Limiting Gait Function Decreased Activity Tolerance, Decreased Strength,Limited Range of Motion,Pain Comments Gait Comments Pt's walker is too short for her upon arrival and PT raises it 2 and she is able to gait train better upright. Initially, she has antalgic gait with little heel strike, push off on toes and right knee flexion and hip flexion and extension on the RLE. After gentle manual work after assessment, pt's step-length, upright and heel strike is better. PT-OP-K Range of Motion Start: 03/08/20 14:41 Freq: Status: Active Protocol: Document 03/13/20 09:00 MB (Rec: 03/13/20 13:40 MB [id number]) Knee Goniometric Range of Motion Knee Left Knee ROM WFL Yes Right Knee ROM WFL No Patient Position Long sitting Flexion Active (degrees) 70 Extension Active (degrees) 8 PT-OP-M Strength Start: 03/08/20 14:41 Freq: Status: Active Protocol: Document 03/13/20 09:00 MB (Rec: 03/13/20 13:40 MB [id number]) Hip Strength Hip Manual Muscle Testing Left Flexion (L2) 5 Normal Abduction 5 Normal Right Comments Deferred hip and knee MMT d/t pt reports of high pain Knee Strength Knee Manual Muscle Testing Left Flexion (S2) 5 Normal Extension (L3) 5 Normal Right Comments MMT deferred d/t high pain at rest and with limited AROM Ankle/Foot Strength Ankle and Foot Manual Muscle Testing Left Dorsiflexion (L4) 5 Normal Inversion 5 Normal Eversion (S1) 5 Normal Right Dorsiflexion (L4) 5 Normal Inversion 5 Normal Eversion (S1) 5 Normal Toe Strength Toe Manual Muscle Testing Left Great Toe Extension 5 Normal Right Great Toe Extension 5 Normal PT-OP-Q Treatments Start: 03/08/20 14:41 Freq: Status: Active Protocol: Document 05/15/20 08:58 MB (Rec: 05/15/20 09:44 MB [id number]) Therapeutic Exercises Supine Exercises Happy baby Side bilateral Comments 1' hold x1 rep Bridges Supine Exercise Name Feet apart and feet together Equipment Used Level 1 band Comments 2 minute hold x2, tried without band, progressed with band and abduction Hook lying clam with band Side bilateral Reps/Minutes Level 2 band Comments Spine flat and tummy tight Alexander stretch Side right Comments 2 reps x45 sec Gait Training Gait Activity stair mgt Comments Several practices 3 steps with rails and without rails, reciprocal gait and cues to try to step less on left toes with descent and to work on flatter stepping. Pt with wear on great toe portion of cork in left shoe Gait without AD Comments Multiple gait trials with 1/16 cork lift in left shoe and then with two of them and pt's gait is better with both and her pelvic alignment (iliac crest height) is equal in standing with total of 1/8 cork lift in left shoe. Initially, she tends to spring off the left toes and gait evens out with improved valgus and extension right leg . Several gait trials for speed walking and for slower walking with cues for Cira Garvin gait to help cue hip and pelvic movement with gait to avoid stiffness up the chain and pt is able to do this. Manual Therapy Treatment Other Other Manual Treatments Pt in left side lying: PT providing TrP pressure on anterior and posterior portions of right vastus lateralis around ITB and pt performing active right knee extension and flexion. Also performed at rectus femoris attachment proximal knee. Pt prone: MWM right proximal gastroc near knee joint and pt performing active DF and PF PT-OP-R Modalities Start: 03/08/20 14:41 Freq: Status: Active Protocol: Document 05/04/20 13:41 MA (Rec: 05/04/20 13:42 MA [id number]) Hot Pack/Cold Pack Treatment CP Location knee A/P Patient Position Sitting Treatment Duration (minutes) 10 Patient Tolerance Good Comments Long sitting to stretch knee into extension while icing PT-OP-T Assessment and Plan Start: 03/08/20 14:41 Freq: Status: Active Protocol: Document 05/15/20 08:58 MB (Rec: 05/15/20 09:44 MB [id number]) Physical Therapy Assessment Rehab Potential Rehabilitation Potential Good Evaluation Complexity Number of Personal Factors/Comorbidities 1-2 Number of Body Systems Impaired 1-2 Clinical Presentation at Evaluation Stable Impairments Impairments Balance,Edema,Functional Activities,Functional Mobility ,Gait,Integument,Pain,Posture, ROM,Soft Tissue Mobility, Strength Goals 6 [facility] Goal (LTG) Pt will present with improved right knee AROM equal to the left to improve sit to stands and gait pattern by 07/08/2020. 05/08/20: Pt supine today with AROM left knee: 1-135 deg; right knee: 10-90 deg. Long sitting extension -10 as well and sitting knee flexion 95 deg. LTG Duration 8 weeks 5 [facility] Goal (LTG) Pt will perform at least 20 reps of sit to stands without UE support in 30 sec to reflect improved functional transfers and strength by . 05/08/20: Pt performs 16 reps in 30 sec with right foot slightly in front of the left foot and she has 3/10 mild more lateral quad pain LTG Duration 8 weeks 4 [facility] Goal (LTG) Pt will perform progressive HEP with I including range of motion, strengthening, flexibility, balance and gait exercises to improve overall functional strength by 2020. 05/08/20: Pt is working on bending her knee at home in supine and prone with assist. She is working on stair training. LTG Duration 8 weeks 3 [facility] Goal (LTG) Pt will ascend and descend 3 steps with receiprocal gait and no AD or rail to allow safe home entrance and exit by 06/18/2020. 05/08/20: Improvement in descending steps and pt does con't to place left toes down when stepping reciprocally LTG Duration 8 weeks 2 Pie Bottomer Goal (LTG) Pt will gait train at least 1800 feet without AD in 6 minutes to improve ambulation for pasture and farm tasks by 06/18/2020. 04/20/20: Pt gait trains 1720 feet without AD and with reports of 2/10 right knee pain. LTG Duration 8 weeks 1 Pie Bottomer Goal (LTG) Pt will present with an improved LEF score to reflect no more than 20% impairment to prepare to return to horse and dog ownership tasks by 07/08. 05/08/20: LEF score is 46/80, refecting 47.5% impairment and this is an improvement since last progress note LTG Duration 8 weeks Assessment Summary Assessment One more /16 cork lift in left shoe added today and gait is pretty similar to gait with just one 1/16 lift and it is overall better as far as right knee valgus and knee extension and being able to shift weight hip to hip/pelvic rocking. Her iliac crests are equal heights in standing with the /8 total lift in left shoe. Progressed hip abduction strengthening today with progressive bridge with band and hip ER. Manual work as well today. Overall, pt's gait is better and knee extension with gait and in long sitting. Physical Therapy Plan Frequency and Duration Frequency of Treatment 3-5x/wk Duration of Treatment 8 weeks Plan of Care Start Date 05/08/20 Plan of Care End Date 07/09/20 Therapeutic Interventions Therapeutic Interventions Balance Training,Canalithic Repositioning,Gait Training, Home Exercise Program,Joint Mobilizations,Manual Therapy, Neuromuscular Re-education, Patient/Caregiver Education, Self-Care/Home Management,Soft Tissue Mobilization,Taping, Therapeutic Activities, Therapeutic Exercises Modalities Cold Pack/Ice Massage,Electric Stimulation,Hot Packs, Ultrasound Next Visit Focus/Plan Next Note Type Treatment Note Next Visit Plan Manual work to include working on medial gastroc and hamstring--pt prone and assisting with ankle movement and knee flexion and extension . Con't to assess right hip mobility and work on adductors as needed. Con't hip extensor and adductor strengthening, consider PNF.
--- NOTE | 2020-05-18 09:49 | PT.OTN ---
Current Diagnoses Unilateral primary osteoarthritis, right knee (05/18/20) Encounter for other orthopedic aftercare (05/18/20) Physical Therapy Treatment Note PT-OP-A Visit Information Start: 03/08/20 14:41 Freq: Status: Active Protocol: Document 05/18/20 09:02 SP (Rec: 05/18/20 09:50 SP [id number]) Out-Patient Physical Therapy Visit Information Visit Information Visit Type Treatment Note Visit Start Time 09:02 Visit Stop Time 09:49 Total Visit Minutes 47 Visit Number 28 Number of UROGYNECOLOGY PHYSICIAN Visits 1 PT-OP-B Current Condition Start: 03/08/20 14:41 Freq: Status: Active Protocol: Document 03/13/20 09:00 MB (Rec: 03/13/20 09:12 MB [id number]) Current Condition History of Current Condition Onset Date 03/07/20 Current Complaints Right knee pain and weakness History of Current Condition Pt is s/p right TKR 03/07/20. Pt has a history of B knee OA, left thumb arthritis, neck arthritis and back arthritis and injections in neck and back. Pt sees chiroprator 2x/ month and massage therapist 1x /month for her neck and back. She has also had work done on her TMJ. She has a thyroid issue. Pt is very active, rides horses and does agility with her dog. Pt reports 7-8/10 pain in her right knee, lateral and posterior leg. The greatest pain is in her groin. She is wearing compression. Prior Treatments and Tests R TKR, back and neck injections, PT in the past. She had a good experience with PT in the past. Treatment Goals Patient/Caregiver Goals I want to get back to riding and pickle ball. PT-OP-C Subjective Start: 03/08/20 14:41 Freq: Status: Active Protocol: Document 05/18/20 09:02 SP (Rec: 05/18/20 09:50 SP [id number]) OP-PT Subjective Patient Comments Patient Comments Pt stated saw physician since last tx and please with increased ROM, stated reported continue ROM and strengthening. PT-OP-G Mobility & Gait Start: 03/08/20 14:41 Freq: Status: Active Protocol: Document 03/13/20 09:00 MB (Rec: 03/13/20 13:40 MB [id number]) OP Mobility Evaluation Bed Mobility Rolling Pt uses left leg to lift her right leg onto the mat with left toes and forefoot hooked around the back of right distal leg Transfers Sit to Stand Right leg out in front and heavy UE use OP Gait Assessment Gait Gait Assistance Required: Independent Distance (Feet) 75 Able to Maintain Weight Bearing Status Yes During Gait Assistive Devices Assistive Device Front Wheeled Walker Orthotic/Prosthetic Devices or Brace: Yes Gait Deviations General Gait Pattern Antalgic,Decreased Stride Length,Decreased Feet Clearance,Flexed Trunk Factors Limiting Gait Function Factors Limiting Gait Function Decreased Activity Tolerance, Decreased Strength,Limited Range of Motion,Pain Comments Gait Comments Pt's walker is too short for her upon arrival and PT raises it 2 and she is able to gait train better upright. Initially, she has antalgic gait with little heel strike, push off on toes and right knee flexion and hip flexion and extension on the RLE. After gentle manual work after assessment, pt's step-length, upright and heel strike is better. PT-OP-K Range of Motion Start: 03/08/20 14:41 Freq: Status: Active Protocol: Document 03/13/20 09:00 MB (Rec: 03/13/20 13:40 MB [id number]) Knee Goniometric Range of Motion Knee Left Knee ROM WFL Yes Right Knee ROM WFL No Patient Position Long sitting Flexion Active (degrees) 70 Extension Active (degrees) 8 PT-OP-M Strength Start: 03/08/20 14:41 Freq: Status: Active Protocol: Document 03/13/20 09:00 MB (Rec: 03/13/20 13:40 MB [id number]) Hip Strength Hip Manual Muscle Testing Left Flexion (L2) 5 Normal Abduction 5 Normal Right Comments Deferred hip and knee MMT d/t pt reports of high pain Knee Strength Knee Manual Muscle Testing Left Flexion (S2) 5 Normal Extension (L3) 5 Normal Right Comments MMT deferred d/t high pain at rest and with limited AROM Ankle/Foot Strength Ankle and Foot Manual Muscle Testing Left Dorsiflexion (L4) 5 Normal Inversion 5 Normal Eversion (S1) 5 Normal Right Dorsiflexion (L4) 5 Normal Inversion 5 Normal Eversion (S1) 5 Normal Toe Strength Toe Manual Muscle Testing Left Great Toe Extension 5 Normal Right Great Toe Extension 5 Normal PT-OP-Q Treatments Start: 03/08/20 14:41 Freq: Status: Active Protocol: Document 05/18/20 09:02 SP (Rec: 05/18/20 09:50 SP [id number]) Gym Equipment Shuttle Recovery Unilateral squat Details R (toe on 1/2 foam roller- DF) - cued knee with/ behind toes Resistance 37#> 25# Shuttle Recovery Platform Stable Reps/Time x10 Bilateral Squats Details cued knee with/ behind toes Resistance 67#> 75# Shuttle Recovery Platform Stable Reps/Time 2x20, toes up w/ half foam roll 2nd set Sport Cord green Exercise Details backward walking, SLS glut med Reps/Duration 3 laps, Therapeutic Exercises Supine Exercises Happy baby Side bilateral Comments 1' hold x1 rep Bridges Supine Exercise Name Feet apart and feet together Equipment Used Level 1 band Comments 2 minute hold x2, tried without band, progressed with band and abduction Hook lying clam with band Side bilateral Reps/Minutes Level 2 band Comments Spine flat and tummy tight Alexander stretch Side right Comments 2 reps x45 sec Sitting Exercises hip ER stretch Sitting Exercise Name R leg crossed over L Reps/Minutes 30 x2 Comments ce Manual Therapy Treatment Soft Tissue Mobilization MWM Body Location ITb, vastus lateralis, distal quad Mobilization Type Myofascial Release,Sustained Pressure,Other Intensity/Depth Moderate Body Position Sidelying>supine knee over black foam roller off end table Comments MWM w knee flex/ ext scar mob Body Location R Mobilization Type Myofascial Release Comments in alexander test position, w/ dycem w/knee flex w/ball, w/ seated flex Joint Mobilizations Patellofemoral Joint R Direction inf, sup, med/lat/ CW/ CCW/ lateral tip Grade III Body Position Supine PT-OP-R Modalities Start: 03/08/20 14:41 Freq: Status: Active Protocol: Document 05/04/20 13:41 MA (Rec: 05/04/20 13:42 MA [id number]) Hot Pack/Cold Pack Treatment CP Location knee A/P Patient Position Sitting Treatment Duration (minutes) 10 Patient Tolerance Good Comments Long sitting to stretch knee into extension while icing PT-OP-T Assessment and Plan Start: 03/08/20 14:41 Freq: Status: Active Protocol: Document 05/18/20 09:02 SP (Rec: 05/18/20 09:50 SP [id number]) Physical Therapy Assessment Goals 6 Tooth Grinder Goal (LTG) Pt will present with improved right knee AROM equal to the left to improve sit to stands and gait pattern by 07/08/2020. 05/08/20: Pt supine today with AROM left knee: 1-135 deg; right knee: 10-90 deg. Long sitting extension -10 as well and sitting knee flexion 95 deg. LTG Duration 8 weeks 5 Tooth Grinder Goal (LTG) Pt will perform at least 20 reps of sit to stands without UE support in 30 sec to reflect improved functional transfers and strength by . 05/08/20: Pt performs 16 reps in 30 sec with right foot slightly in front of the left foot and she has 3/10 mild more lateral quad pain LTG Duration 8 weeks 4 Tooth Grinder Goal (LTG) Pt will perform progressive HEP with I including range of motion, strengthening, flexibility, balance and gait exercises to improve overall functional strength by 2020. 05/08/20: Pt is working on bending her knee at home in supine and prone with assist. She is working on stair training. LTG Duration 8 weeks 3 Tooth Grinder Goal (LTG) Pt will ascend and descend 3 steps with receiprocal gait and no AD or rail to allow safe home entrance and exit by 06/18/2020. 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 04/20/20: Pt gait trains 1720 feet without AD and with reports of 2/10 right knee pain. LTG Duration 8 weeks 1 Group Home Goal (LTG) Pt will present with an improved LEF score to reflect no more than 20% impairment to prepare to return to horse and dog ownership tasks by 07/08. 05/08/20: LEF score is 46/80, refecting 47.5% impairment and this is an improvement since last progress note LTG Duration 8 weeks Assessment Summary Assessment pt Physical Therapy Plan Frequency and Duration Frequency of Treatment 3-5x/wk Duration of Treatment 8 weeks Plan of Care Start Date 05/08/20 Plan of Care End Date 07/09/20 Therapeutic Interventions Therapeutic Interventions Balance Training,Canalithic Repositioning,Gait Training, Home Exercise Program,Joint Mobilizations,Manual Therapy, Neuromuscular Re-education, Patient/Caregiver Education, Self-Care/Home Management,Soft Tissue Mobilization,Taping, Therapeutic Activities, Therapeutic Exercises Modalities Cold Pack/Ice Massage,Electric Stimulation,Hot Packs, Ultrasound Next Visit Focus/Plan Next Note Type Treatment Note Next Visit Plan Assess response to last tx: manual supine, HEP review, initiated SLS glut med facilitation against resistance sport cord for alignment knee/hip/ trunk/ ankle. Con't to assess right hip mobility and work on adductors as needed. Con't hip extensor and adductor strengthening, consider PNF.
--- NOTE | 2020-05-21 09:51 | PT.OTN ---
Current Diagnoses Unilateral primary osteoarthritis, right knee (05/21/20) Encounter for other orthopedic aftercare (05/21/20) Physical Therapy Treatment Note PT-OP-A Visit Information Start: 03/08/20 14:41 Freq: Status: Active Protocol: Document 05/21/20 09:05 SP (Rec: 05/21/20 12:12 SP [id number]) Out-Patient Physical Therapy Visit Information Visit Information Visit Type Treatment Note Visit Start Time 09:05 Visit Stop Time 09:51 Total Visit Minutes 41 Visit Number 29 Number of MAGAZINE EDITOR Visits 2 PT-OP-B Current Condition Start: 03/08/20 14:41 Freq: Status: Active Protocol: Document 03/13/20 09:00 MB (Rec: 03/13/20 09:12 MB [id number]) Current Condition History of Current Condition Onset Date 03/07/20 Current Complaints Right knee pain and weakness History of Current Condition Pt is s/p right TKR 03/07/20. Pt has a history of B knee OA, left thumb arthritis, neck arthritis and back arthritis and injections in neck and back. Pt sees chiroprator 2x/ month and massage therapist 1x /month for her neck and back. She has also had work done on her TMJ. She has a thyroid issue. Pt is very active, rides horses and does agility with her dog. Pt reports 7-8/10 pain in her right knee, lateral and posterior leg. The greatest pain is in her groin. She is wearing compression. Prior Treatments and Tests R TKR, back and neck injections, PT in the past. She had a good experience with PT in the past. Treatment Goals Patient/Caregiver Goals I want to get back to riding and pickle ball. PT-OP-C Subjective Start: 03/08/20 14:41 Freq: Status: Active Protocol: Document 05/21/20 09:05 SP (Rec: 05/21/20 12:12 SP [id number]) OP-PT Subjective Patient Comments Patient Comments Pt reports doing good I think , days of tears are over, getting in/out car each leg independently. Knee is stil achy in the evening so takes Tylenol and warm pad for back for tightness. Biking is easier, watching ankle ROM. PT-OP-G Mobility & Gait Start: 03/08/20 14:41 Freq: Status: Active Protocol: Document 03/13/20 09:00 MB (Rec: 03/13/20 13:40 MB [id number]) OP Mobility Evaluation Bed Mobility Rolling Pt uses left leg to lift her right leg onto the mat with left toes and forefoot hooked around the back of right distal leg Transfers Sit to Stand Right leg out in front and heavy UE use OP Gait Assessment Gait Gait Assistance Required: Independent Distance (Feet) 75 Able to Maintain Weight Bearing Status Yes During Gait Assistive Devices Assistive Device Front Wheeled Walker Orthotic/Prosthetic Devices or Brace: Yes Gait Deviations General Gait Pattern Antalgic,Decreased Stride Length,Decreased Feet Clearance,Flexed Trunk Factors Limiting Gait Function Factors Limiting Gait Function Decreased Activity Tolerance, Decreased Strength,Limited Range of Motion,Pain Comments Gait Comments Pt's walker is too short for her upon arrival and PT raises it 2 and she is able to gait train better upright. Initially, she has antalgic gait with little heel strike, push off on toes and right knee flexion and hip flexion and extension on the RLE. After gentle manual work after assessment, pt's step-length, upright and heel strike is better. PT-OP-K Range of Motion Start: 03/08/20 14:41 Freq: Status: Active Protocol: Document 03/13/20 09:00 MB (Rec: 03/13/20 13:40 MB [id number]) Knee Goniometric Range of Motion Knee Left Knee ROM WFL Yes Right Knee ROM WFL No Patient Position Long sitting Flexion Active (degrees) 70 Extension Active (degrees) 8 PT-OP-M Strength Start: 03/08/20 14:41 Freq: Status: Active Protocol: Document 03/13/20 09:00 MB (Rec: 03/13/20 13:40 MB [id number]) Hip Strength Hip Manual Muscle Testing Left Flexion (L2) 5 Normal Abduction 5 Normal Right Comments Deferred hip and knee MMT d/t pt reports of high pain Knee Strength Knee Manual Muscle Testing Left Flexion (S2) 5 Normal Extension (L3) 5 Normal Right Comments MMT deferred d/t high pain at rest and with limited AROM Ankle/Foot Strength Ankle and Foot Manual Muscle Testing Left Dorsiflexion (L4) 5 Normal Inversion 5 Normal Eversion (S1) 5 Normal Right Dorsiflexion (L4) 5 Normal Inversion 5 Normal Eversion (S1) 5 Normal Toe Strength Toe Manual Muscle Testing Left Great Toe Extension 5 Normal Right Great Toe Extension 5 Normal PT-OP-Q Treatments Start: 03/08/20 14:41 Freq: Status: Active Protocol: Document 05/21/20 09:05 SP (Rec: 05/21/20 12:12 SP [id number]) Gym Equipment Shuttle Recovery Unilateral squat Details R knee with/ behind toes Resistance 37# Shuttle Recovery Platform Stable Reps/Time 2x15 Bilateral Squats Details cued knee with/ behind toes Resistance 75# Shuttle Recovery Platform Stable Reps/Time 2x20 Sport Cord green Exercise Details forward/backward walking Reps/Duration 3 laps, 2x 10 reps Therapeutic Exercises Supine Exercises Happy baby Side bilateral Comments 1' hold x1 rep Alexander stretch Side right Comments 2 reps x45 sec AP, HS, GS, hip abduction and adduction Supine Exercise Name Heel slide Side right Resistance AROM Reps/Minutes x2 Comments 0-115 deg Standing Exercises reverse step down/ modified lunge Standing Exercise Name alternate LE (added Side bilateral Equipment Used 4> 8 step R, 8 step L Reps/Minutes x5 Comments cued knees with /behind toes stationary lunge Standing Exercise Name Focus on ROM: R knee flexion Side right Equipment Used 2nd step Reps/Minutes 1.5 min Comments alternating b/w flexion and extension Knee flexion on step Side left Equipment Used rail support Reps/Minutes x20 Comments knee good form alignment heel raises Standing Exercise Name dynamic eccentric into DF ROM Side bilateral Reps/Minutes 3 sec hold x10 Comments cued knee align w/ toes and even wt distribution PT-OP-R Modalities Start: 03/08/20 14:41 Freq: Status: Active Protocol: Document 05/04/20 13:41 MA (Rec: 05/04/20 13:42 MA [id number]) Hot Pack/Cold Pack Treatment CP Location knee A/P Patient Position Sitting Treatment Duration (minutes) 10 Patient Tolerance Good Comments Long sitting to stretch knee into extension while icing PT-OP-T Assessment and Plan Start: 03/08/20 14:41 Freq: Status: Active Protocol: Document 05/21/20 09:05 SP (Rec: 05/21/20 12:12 SP [id number]) Physical Therapy Assessment Goals 6 [facility] Goal (LTG) Pt will present with improved right knee AROM equal to the left to improve sit to stands and gait pattern by 07/08/2020. 05/08/20: Pt supine today with AROM left knee: 1-135 deg; right knee: 10-90 deg. Long sitting extension -10 as well and sitting knee flexion 95 deg. LTG Duration 8 weeks 5 [facility] Goal (LTG) Pt will perform at least 20 reps of sit to stands without UE support in 30 sec to reflect improved functional transfers and strength by . 05/08/20: Pt performs 16 reps in 30 sec with right foot slightly in front of the left foot and she has 3/10 mild more lateral quad pain LTG Duration 8 weeks 4 Sports Marketing Specialist Goal (LTG) Pt will perform progressive HEP with I including range of motion, strengthening, flexibility, balance and gait exercises to improve overall functional strength by 2020. 05/21/20: Pt is working on progressing in R knee dynamic AROM, strengthening: initiated stationary lunge, step down, eccentric calf raises ROM under tension. LTG Duration 8 weeks 3 Sports Marketing Specialist Goal (LTG) Pt will ascend and descend 3 steps with receiprocal gait and no AD or rail to allow safe home entrance and exit by 06/18/2020. 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 04/20/20: Pt gait trains 1720 feet without AD and with reports of 2/10 right knee pain. LTG Duration 8 weeks 1 [facility] Goal (LTG) Pt will present with an improved LEF score to reflect no more than 20% impairment to prepare to return to horse and dog ownership tasks by 07/08. 05/08/20: LEF score is 46/80, refecting 47.5% impairment and this is an improvement since last progress note LTG Duration 8 weeks Assessment Summary Assessment Pt tolerated initiated DF eccentric calf raises, step downs limited reps with cuing for knee alignment knee with and behind toes with support of UE and needed. Improved with hip hinge/ posterior chain awareness cuing for decreased lateral R knee pain often gets. Physical Therapy Plan Frequency and Duration Frequency of Treatment 3-5x/wk Duration of Treatment 8 weeks Plan of Care Start Date 05/08/20 Plan of Care End Date 07/09/20 Therapeutic Interventions Therapeutic Interventions Balance Training,Canalithic Repositioning,Gait Training, Home Exercise Program,Joint Mobilizations,Manual Therapy, Neuromuscular Re-education, Patient/Caregiver Education, Self-Care/Home Management,Soft Tissue Mobilization,Taping, Therapeutic Activities, Therapeutic Exercises Modalities Cold Pack/Ice Massage,Electric Stimulation,Hot Packs, Ultrasound Next Visit Focus/Plan Next Note Type Treatment Note Next Visit Plan Assess response to last tx: dynamic ROM and initiating strengthening tolerance and low reps. Con't to assess right hip mobility ER and work on adductors as needed. Con't hip extensor and adductor strengthening, consider PNF.
--- NOTE | 2020-05-24 09:46 | PT.OTN ---
Current Diagnoses Unilateral primary osteoarthritis, right knee (05/24/20) Encounter for other orthopedic aftercare (05/24/20) Physical Therapy Treatment Note PT-OP-A Visit Information Start: 03/08/20 14:41 Freq: Status: Active Protocol: Document 05/24/20 09:01 MB (Rec: 05/24/20 09:46 MB [id number]) Out-Patient Physical Therapy Visit Information Visit Information Visit Type Treatment Note Visit Start Time 09:01 Visit Stop Time 09:45 Total Visit Minutes 44 Visit Number 30 Number of SPD TECH Visits 0 PT-OP-B Current Condition Start: 03/08/20 14:41 Freq: Status: Active Protocol: Document 03/13/20 09:00 MB (Rec: 03/13/20 09:12 MB [id number]) Current Condition History of Current Condition Onset Date 03/07/20 Current Complaints Right knee pain and weakness History of Current Condition Pt is s/p right TKR 03/07/20. Pt has a history of B knee OA, left thumb arthritis, neck arthritis and back arthritis and injections in neck and back. Pt sees chiroprator 2x/ month and massage therapist 1x /month for her neck and back. She has also had work done on her TMJ. She has a thyroid issue. Pt is very active, rides horses and does agility with her dog. Pt reports 7-8/10 pain in her right knee, lateral and posterior leg. The greatest pain is in her groin. She is wearing compression. Prior Treatments and Tests R TKR, back and neck injections, PT in the past. She had a good experience with PT in the past. Treatment Goals Patient/Caregiver Goals I want to get back to riding and pickle ball. PT-OP-C Subjective Start: 03/08/20 14:41 Freq: Status: Active Protocol: Document 05/24/20 09:01 MB (Rec: 05/24/20 09:46 MB [id number]) OP-PT Subjective Patient Comments Patient Comments Pt states that agility training is going well and that she ran. PT-OP-G Mobility & Gait Start: 03/08/20 14:41 Freq: Status: Active Protocol: Document 03/13/20 09:00 MB (Rec: 03/13/20 13:40 MB [id number]) OP Mobility Evaluation Bed Mobility Rolling Pt uses left leg to lift her right leg onto the mat with left toes and forefoot hooked around the back of right distal leg Transfers Sit to Stand Right leg out in front and heavy UE use OP Gait Assessment Gait Gait Assistance Required: Independent Distance (Feet) 75 Able to Maintain Weight Bearing Status Yes During Gait Assistive Devices Assistive Device Front Wheeled Walker Orthotic/Prosthetic Devices or Brace: Yes Gait Deviations General Gait Pattern Antalgic,Decreased Stride Length,Decreased Feet Clearance,Flexed Trunk Factors Limiting Gait Function Factors Limiting Gait Function Decreased Activity Tolerance, Decreased Strength,Limited Range of Motion,Pain Comments Gait Comments Pt's walker is too short for her upon arrival and PT raises it 2 and she is able to gait train better upright. Initially, she has antalgic gait with little heel strike, push off on toes and right knee flexion and hip flexion and extension on the RLE. After gentle manual work after assessment, pt's step-length, upright and heel strike is better. PT-OP-K Range of Motion Start: 03/08/20 14:41 Freq: Status: Active Protocol: Document 03/13/20 09:00 MB (Rec: 03/13/20 13:40 MB [id number]) Knee Goniometric Range of Motion Knee Left Knee ROM WFL Yes Right Knee ROM WFL No Patient Position Long sitting Flexion Active (degrees) 70 Extension Active (degrees) 8 PT-OP-M Strength Start: 03/08/20 14:41 Freq: Status: Active Protocol: Document 03/13/20 09:00 MB (Rec: 03/13/20 13:40 MB [id number]) Hip Strength Hip Manual Muscle Testing Left Flexion (L2) 5 Normal Abduction 5 Normal Right Comments Deferred hip and knee MMT d/t pt reports of high pain Knee Strength Knee Manual Muscle Testing Left Flexion (S2) 5 Normal Extension (L3) 5 Normal Right Comments MMT deferred d/t high pain at rest and with limited AROM Ankle/Foot Strength Ankle and Foot Manual Muscle Testing Left Dorsiflexion (L4) 5 Normal Inversion 5 Normal Eversion (S1) 5 Normal Right Dorsiflexion (L4) 5 Normal Inversion 5 Normal Eversion (S1) 5 Normal Toe Strength Toe Manual Muscle Testing Left Great Toe Extension 5 Normal Right Great Toe Extension 5 Normal PT-OP-Q Treatments Start: 03/08/20 14:41 Freq: Status: Active Protocol: Document 05/24/20 09:01 MB (Rec: 05/24/20 09:46 MB [id number]) Cardio Equipment Bicycle (Upright) Duration (Minutes) 5 Resistance 0-10 Seat Position 5 Therapeutic Exercises Supine Exercises Happy baby Side bilateral Comments 60 sec hold Alexander stretch Side right Comments 60 sec and pelvic tilt and abdominal drawing in, left knee bent Sitting Exercises hip ER stretch Side bilateral Comments 60 sec each side, cues not to push on knee Gait Training Gait Activity Stair exercises and training Comments Reciprocal ascend and descend with rail on right descend and better foot placement descending (equal WB through toes), 20 reps mini step down, knee flexion stretch over step with flexion and extension. Lunge with support holding onto outside rail on the right with right foot behind. Manual Therapy Treatment Other Other Manual Treatments Side lying: MWM with pt performing AP and PT providing TrP pressure to posterior calf musculature, also STM vastus lateralis, posterior knee and patellar tendon. Pt supine: Patellar CFM and pt performing active HS with TrP pressure vastus lateralis and rectus femoris distally, pt with small lumpy/lipoma type areas proximal and distal lateral posterior knee PT-OP-R Modalities Start: 03/08/20 14:41 Freq: Status: Active Protocol: Document 05/04/20 13:41 MA (Rec: 05/04/20 13:42 MA [id number]) Hot Pack/Cold Pack Treatment CP Location knee A/P Patient Position Sitting Treatment Duration (minutes) 10 Patient Tolerance Good Comments Long sitting to stretch knee into extension while icing PT-OP-T Assessment and Plan Start: 03/08/20 14:41 Freq: Status: Active Protocol: Document 05/24/20 09:01 MB (Rec: 05/24/20 09:46 MB [id number]) Physical Therapy Assessment Goals 6 Residential Goal (LTG) Pt will present with improved right knee AROM equal to the left to improve sit to stands and gait pattern by 07/08/2020. 05/08/20: Pt supine today with AROM left knee: 1-135 deg; right knee: 10-90 deg. Long sitting extension -10 as well and sitting knee flexion 95 deg. LTG Duration 8 weeks 5 Residential Goal (LTG) Pt will perform at least 20 reps of sit to stands without UE support in 30 sec to reflect improved functional transfers and strength by . 05/08/20: Pt performs 16 reps in 30 sec with right foot slightly in front of the left foot and she has 3/10 mild more lateral quad pain LTG Duration 8 weeks 4 Electronic Parts Salesperson Goal (LTG) Pt will perform progressive HEP with I including range of motion, strengthening, flexibility, balance and gait exercises to improve overall functional strength by 2020. 05/21/20: Pt is working on progressing in R knee dynamic AROM, strengthening: initiated stationary lunge, step down, eccentric calf raises ROM under tension. LTG Duration 8 weeks 3 Electronic Parts Salesperson Goal (LTG) Pt will ascend and descend 3 steps with receiprocal gait and no AD or rail to allow safe home entrance and exit by 06/18/2020. 05/08/20: Improvement in descending steps and pt does con't to place left toes down when stepping reciprocally LTG Duration 8 weeks 2 Electronic Parts Salesperson Goal (LTG) Pt will gait train at least 1800 feet without AD in 6 minutes to improve ambulation for pasture and farm tasks by 06/18/2020. 04/20/20: Pt gait trains 1720 feet without AD and with reports of 2/10 right knee pain. LTG Duration 8 weeks 1 Residential Goal (LTG) Pt will present with an improved LEF score to reflect no more than 20% impairment to prepare to return to horse and dog ownership tasks by 07/08. 05/08/20: LEF score is 46/80, refecting 47.5% impairment and this is an improvement since last progress note LTG Duration 8 weeks Assessment Summary Assessment Pt's gait is better and she has progressed towards lunging and other stair exercises. Con't progression as pt tolerates. She leaves for [place] next week and will con' t biking and stair exercises there. Physical Therapy Plan Frequency and Duration Frequency of Treatment 3-5x/wk Duration of Treatment 8 weeks Plan of Care Start Date 05/08/20 Plan of Care End Date 07/09/20 Therapeutic Interventions Therapeutic Interventions Balance Training,Canalithic Repositioning,Gait Training, Home Exercise Program,Joint Mobilizations,Manual Therapy, Neuromuscular Re-education, Patient/Caregiver Education, Self-Care/Home Management,Soft Tissue Mobilization,Taping, Therapeutic Activities, Therapeutic Exercises Modalities Cold Pack/Ice Massage,Electric Stimulation,Hot Packs, Ultrasound Next Visit Focus/Plan Next Note Type Treatment Note Next Visit Plan Consider PNF, ongoing hip extension and abduction strengthening.
--- NOTE | 2020-05-28 09:41 | PT.OTN ---
Current Diagnoses Unilateral primary osteoarthritis, right knee (05/28/20) Encounter for other orthopedic aftercare (05/28/20) Physical Therapy Treatment Note PT-OP-A Visit Information Start: 03/08/20 14:41 Freq: Status: Active Protocol: Document 05/28/20 09:00 MB (Rec: 05/28/20 09:41 MB [id number]) Out-Patient Physical Therapy Visit Information Visit Information Visit Type Treatment Note Visit Start Time 09:00 Visit Stop Time 09:35 Total Visit Minutes 35 Visit Number 31 PT-OP-B Current Condition Start: 03/08/20 14:41 Freq: Status: Active Protocol: Document 03/13/20 09:00 MB (Rec: 03/13/20 09:12 MB [id number]) Current Condition History of Current Condition Onset Date 03/07/20 Current Complaints Right knee pain and weakness History of Current Condition Pt is s/p right TKR 03/07/20. Pt has a history of B knee OA, left thumb arthritis, neck arthritis and back arthritis and injections in neck and back. Pt sees chiroprator 2x/ month and massage therapist 1x /month for her neck and back. She has also had work done on her TMJ. She has a thyroid issue. Pt is very active, rides horses and does agility with her dog. Pt reports 7-8/10 pain in her right knee, lateral and posterior leg. The greatest pain is in her groin. She is wearing compression. Prior Treatments and Tests R TKR, back and neck injections, PT in the past. She had a good experience with PT in the past. Treatment Goals Patient/Caregiver Goals I want to get back to riding and pickle ball. PT-OP-C Subjective Start: 03/08/20 14:41 Freq: Status: Active Protocol: Document 05/28/20 09:00 MB (Rec: 05/28/20 09:41 MB [id number]) OP-PT Subjective Patient Comments Patient Comments My knee is hurting today. Pt states that they are pruning and she is standing outside for hours. Her back is hurting as well. They head out to [place] tomorrow. PT-OP-G Mobility & Gait Start: 03/08/20 14:41 Freq: Status: Active Protocol: Document 03/13/20 09:00 MB (Rec: 03/13/20 13:40 MB [id number]) OP Mobility Evaluation Bed Mobility Rolling Pt uses left leg to lift her right leg onto the mat with left toes and forefoot hooked around the back of right distal leg Transfers Sit to Stand Right leg out in front and heavy UE use OP Gait Assessment Gait Gait Assistance Required: Independent Distance (Feet) 75 Able to Maintain Weight Bearing Status Yes During Gait Assistive Devices Assistive Device Front Wheeled Walker Orthotic/Prosthetic Devices or Brace: Yes Gait Deviations General Gait Pattern Antalgic,Decreased Stride Length,Decreased Feet Clearance,Flexed Trunk Factors Limiting Gait Function Factors Limiting Gait Function Decreased Activity Tolerance, Decreased Strength,Limited Range of Motion,Pain Comments Gait Comments Pt's walker is too short for her upon arrival and PT raises it 2 and she is able to gait train better upright. Initially, she has antalgic gait with little heel strike, push off on toes and right knee flexion and hip flexion and extension on the RLE. After gentle manual work after assessment, pt's step-length, upright and heel strike is better. PT-OP-K Range of Motion Start: 03/08/20 14:41 Freq: Status: Active Protocol: Document 03/13/20 09:00 MB (Rec: 03/13/20 13:40 MB [id number]) Knee Goniometric Range of Motion Knee Left Knee ROM WFL Yes Right Knee ROM WFL No Patient Position Long sitting Flexion Active (degrees) 70 Extension Active (degrees) 8 PT-OP-M Strength Start: 03/08/20 14:41 Freq: Status: Active Protocol: Document 03/13/20 09:00 MB (Rec: 03/13/20 13:40 MB [id number]) Hip Strength Hip Manual Muscle Testing Left Flexion (L2) 5 Normal Abduction 5 Normal Right Comments Deferred hip and knee MMT d/t pt reports of high pain Knee Strength Knee Manual Muscle Testing Left Flexion (S2) 5 Normal Extension (L3) 5 Normal Right Comments MMT deferred d/t high pain at rest and with limited AROM Ankle/Foot Strength Ankle and Foot Manual Muscle Testing Left Dorsiflexion (L4) 5 Normal Inversion 5 Normal Eversion (S1) 5 Normal Right Dorsiflexion (L4) 5 Normal Inversion 5 Normal Eversion (S1) 5 Normal Toe Strength Toe Manual Muscle Testing Left Great Toe Extension 5 Normal Right Great Toe Extension 5 Normal PT-OP-Q Treatments Start: 03/08/20 14:41 Freq: Status: Active Protocol: Document 05/28/20 09:00 MB (Rec: 05/28/20 09:41 MB [id number]) Cardio Equipment Bicycle (Upright) Duration (Minutes) 10 Resistance 10 Seat Position 5 Neuro Re-Education Treatment Balance Activities FGA Comments FGA score today is normal, 27/ 30 and pt has most trouble with ascend and descend steps, tandem walking and slowing down to step over obstacle with right foot first Multiple balance exercises Comments No trouble with Romberg, Romberg EC normal with mild sway and pt feels more comfortable in corner, at least 1'. Tandem standing in corner with left foot behind at least 1'. More trouble wtih right foot behind and up to 1 ' with LOB at start of position. Tandem with head turns: easy LOB with both right and left foot behind. EC : left foot behind, pt can hold 3 sec before LOB, right foot behind, pt can hold 2-3 sec before LOB, practice opening eyes before LOB. PT-OP-R Modalities Start: 03/08/20 14:41 Freq: Status: Active Protocol: Document 05/04/20 13:41 MA (Rec: 05/04/20 13:42 MA [id number]) Hot Pack/Cold Pack Treatment CP Location knee A/P Patient Position Sitting Treatment Duration (minutes) 10 Patient Tolerance Good Comments Long sitting to stretch knee into extension while icing PT-OP-T Assessment and Plan Start: 03/08/20 14:41 Freq: Status: Active Protocol: Document 05/28/20 09:00 MB (Rec: 05/28/20 09:41 MB [id number]) Physical Therapy Assessment Goals 6 Mcfp Goal (LTG) Pt will present with improved right knee AROM equal to the left to improve sit to stands and gait pattern by 07/08/2020. 05/08/20: Pt supine today with AROM left knee: 1-135 deg; right knee: 10-90 deg. Long sitting extension -10 as well and sitting knee flexion 95 deg. LTG Duration 8 weeks 5 News Photographer Goal (LTG) Pt will perform at least 20 reps of sit to stands without UE support in 30 sec to reflect improved functional transfers and strength by . 05/08/20: Pt performs 16 reps in 30 sec with right foot slightly in front of the left foot and she has 3/10 mild more lateral quad pain LTG Duration 8 weeks 4 News Photographer Goal (LTG) Pt will perform progressive HEP with I including range of motion, strengthening, flexibility, balance and gait exercises to improve overall functional strength by 2020. 05/21/20: Pt is working on progressing in R knee dynamic AROM, strengthening: initiated stationary lunge, step down, eccentric calf raises ROM under tension. LTG Duration 8 weeks 3 Mcfp Goal (LTG) Pt will ascend and descend 3 steps with receiprocal gait and no AD or rail to allow safe home entrance and exit by 06/18/2020. 05/08/20: Improvement in descending steps and pt does con't to place left toes down when stepping reciprocally LTG Duration 8 weeks 2 Mcfp Goal (LTG) Pt will gait train at least 1800 feet without AD in 6 minutes to improve ambulation for pasture and farm tasks by 06/18/2020. 04/20/20: Pt gait trains 1720 feet without AD and with reports of 2/10 right knee pain. LTG Duration 8 weeks 1 News Photographer Goal (LTG) Pt will present with an improved LEF score to reflect no more than 20% impairment to prepare to return to horse and dog ownership tasks by 07/08. 05/08/20: LEF score is 46/80, refecting 47.5% impairment and this is an improvement since last progress note LTG Duration 8 weeks Assessment Summary Assessment Progressed balance exercises today. Her FGA score is normal and her balance challenges show up with standing balance exercises. Pt to visit family in [place] the rest of the week and will con't with PT next week upon her return. Physical Therapy Plan Frequency and Duration Frequency of Treatment 3-5x/wk Duration of Treatment 8 weeks Plan of Care Start Date 05/08/20 Plan of Care End Date 07/09/20 Therapeutic Interventions Therapeutic Interventions Balance Training,Canalithic Repositioning,Gait Training, Home Exercise Program,Joint Mobilizations,Manual Therapy, Neuromuscular Re-education, Patient/Caregiver Education, Self-Care/Home Management,Soft Tissue Mobilization,Taping, Therapeutic Activities, Therapeutic Exercises Modalities Cold Pack/Ice Massage,Electric Stimulation,Hot Packs, Ultrasound Next Visit Focus/Plan Next Note Type Treatment Note Next Visit Plan Ongoing balance training. Consider PNF, ongoing hip extension and abduction strengthening.
--- NOTE | 2020-06-05 08:55 | PT.OTN ---
Current Diagnoses Unilateral primary osteoarthritis, right knee (06/05/20) Encounter for other orthopedic aftercare (06/05/20) Physical Therapy Treatment Note PT-OP-A Visit Information Start: 03/08/20 14:41 Freq: Status: Active Protocol: Document 06/05/20 08:11 MB (Rec: 06/05/20 08:26 MB [id number]) Out-Patient Physical Therapy Visit Information Visit Information Visit Type Treatment Note Visit Start Time 08:11 Visit Stop Time 08:52 Total Visit Minutes 41 Visit Number 32 PT-OP-B Current Condition Start: 03/08/20 14:41 Freq: Status: Active Protocol: Document 03/13/20 09:00 MB (Rec: 03/13/20 09:12 MB [id number]) Current Condition History of Current Condition Onset Date 03/07/20 Current Complaints Right knee pain and weakness History of Current Condition Pt is s/p right TKR 03/07/20. Pt has a history of B knee OA, left thumb arthritis, neck arthritis and back arthritis and injections in neck and back. Pt sees chiroprator 2x/ month and massage therapist 1x /month for her neck and back. She has also had work done on her TMJ. She has a thyroid issue. Pt is very active, rides horses and does agility with her dog. Pt reports 7-8/10 pain in her right knee, lateral and posterior leg. The greatest pain is in her groin. She is wearing compression. Prior Treatments and Tests R TKR, back and neck injections, PT in the past. She had a good experience with PT in the past. Treatment Goals Patient/Caregiver Goals I want to get back to riding and pickle ball. PT-OP-C Subjective Start: 03/08/20 14:41 Freq: Status: Active Protocol: Document 06/05/20 08:11 MB (Rec: 06/05/20 08:26 MB [id number]) OP-PT Subjective Patient Comments Patient Comments Pt states that her trip to [place] went well. Her leg did better on the plane than she thought it would. She did the steep steps to the second floor to her room. PT-OP-G Mobility & Gait Start: 03/08/20 14:41 Freq: Status: Active Protocol: Document 03/13/20 09:00 MB (Rec: 03/13/20 13:40 MB [id number]) OP Mobility Evaluation Bed Mobility Rolling Pt uses left leg to lift her right leg onto the mat with left toes and forefoot hooked around the back of right distal leg Transfers Sit to Stand Right leg out in front and heavy UE use OP Gait Assessment Gait Gait Assistance Required: Independent Distance (Feet) 75 Able to Maintain Weight Bearing Status Yes During Gait Assistive Devices Assistive Device Front Wheeled Walker Orthotic/Prosthetic Devices or Brace: Yes Gait Deviations General Gait Pattern Antalgic,Decreased Stride Length,Decreased Feet Clearance,Flexed Trunk Factors Limiting Gait Function Factors Limiting Gait Function Decreased Activity Tolerance, Decreased Strength,Limited Range of Motion,Pain Comments Gait Comments Pt's walker is too short for her upon arrival and PT raises it 2 and she is able to gait train better upright. Initially, she has antalgic gait with little heel strike, push off on toes and right knee flexion and hip flexion and extension on the RLE. After gentle manual work after assessment, pt's step-length, upright and heel strike is better. PT-OP-K Range of Motion Start: 03/08/20 14:41 Freq: Status: Active Protocol: Document 03/13/20 09:00 MB (Rec: 03/13/20 13:40 MB [id number]) Knee Goniometric Range of Motion Knee Left Knee ROM WFL Yes Right Knee ROM WFL No Patient Position Long sitting Flexion Active (degrees) 70 Extension Active (degrees) 8 PT-OP-M Strength Start: 03/08/20 14:41 Freq: Status: Active Protocol: Document 03/13/20 09:00 MB (Rec: 03/13/20 13:40 MB [id number]) Hip Strength Hip Manual Muscle Testing Left Flexion (L2) 5 Normal Abduction 5 Normal Right Comments Deferred hip and knee MMT d/t pt reports of high pain Knee Strength Knee Manual Muscle Testing Left Flexion (S2) 5 Normal Extension (L3) 5 Normal Right Comments MMT deferred d/t high pain at rest and with limited AROM Ankle/Foot Strength Ankle and Foot Manual Muscle Testing Left Dorsiflexion (L4) 5 Normal Inversion 5 Normal Eversion (S1) 5 Normal Right Dorsiflexion (L4) 5 Normal Inversion 5 Normal Eversion (S1) 5 Normal Toe Strength Toe Manual Muscle Testing Left Great Toe Extension 5 Normal Right Great Toe Extension 5 Normal PT-OP-Q Treatments Start: 03/08/20 14:41 Freq: Status: Active Protocol: Document 06/05/20 08:11 MB (Rec: 06/05/20 08:26 MB [id number]) Cardio Equipment Bicycle (Upright) Duration (Minutes) 10 Resistance 10 Seat Position 5 Manual Therapy Treatment Other Other Manual Treatments Pt supine manual work on right leg: MWM with PT providing trigger point pressure/STM vastus lateralis, adductors, rectus femoris, hamstrings, posterior knee and calf with pt performing hip abduction isometric, active HS and AP PT-OP-R Modalities Start: 03/08/20 14:41 Freq: Status: Active Protocol: Document 05/04/20 13:41 MA (Rec: 05/04/20 13:42 MA [id number]) Hot Pack/Cold Pack Treatment CP Location knee A/P Patient Position Sitting Treatment Duration (minutes) 10 Patient Tolerance Good Comments Long sitting to stretch knee into extension while icing PT-OP-T Assessment and Plan Start: 03/08/20 14:41 Freq: Status: Active Protocol: Document 06/05/20 08:11 MB (Rec: 06/05/20 08:26 MB [id number]) Physical Therapy Assessment Goals 6 Fdc Goal (LTG) Pt will present with improved right knee AROM equal to the left to improve sit to stands and gait pattern by 07/08/2020. 05/08/20: Pt supine today with AROM left knee: 1-135 deg; right knee: 10-90 deg. Long sitting extension -10 as well and sitting knee flexion 95 deg. LTG Duration 8 weeks 5 Newspaper Inserter Goal (LTG) Pt will perform at least 20 reps of sit to stands without UE support in 30 sec to reflect improved functional transfers and strength by . 05/08/20: Pt performs 16 reps in 30 sec with right foot slightly in front of the left foot and she has 3/10 mild more lateral quad pain LTG Duration 8 weeks 4 Fdc Goal (LTG) Pt will perform progressive HEP with I including range of motion, strengthening, flexibility, balance and gait exercises to improve overall functional strength by 2020. 05/21/20: Pt is working on progressing in R knee dynamic AROM, strengthening: initiated stationary lunge, step down, eccentric calf raises ROM under tension. LTG Duration 8 weeks 3 Fdc Goal (LTG) Pt will ascend and descend 3 steps with receiprocal gait and no AD or rail to allow safe home entrance and exit by 06/18/2020. 05/08/20: Improvement in descending steps and pt does con't to place left toes down when stepping reciprocally LTG Duration 8 weeks 2 Fdc Goal (LTG) Pt will gait train at least 1800 feet without AD in 6 minutes to improve ambulation for pasture and farm tasks by 06/18/2020. 04/20/20: Pt gait trains 1720 feet without AD and with reports of 2/10 right knee pain. LTG Duration 8 weeks 1 Fdc Goal (LTG) Pt will present with an improved LEF score to reflect no more than 20% impairment to prepare to return to horse and dog ownership tasks by 07/08. 05/08/20: LEF score is 46/80, refecting 47.5% impairment and this is an improvement since last progress note LTG Duration 8 weeks Assessment Summary Assessment Pt is walking and feeling better. Her trip went well. 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 She tolerates biking and manual work today. Con't per POC below. Physical Therapy Plan Frequency and Duration Frequency of Treatment 3-5x/wk Duration of Treatment 8 weeks Plan of Care Start Date 05/08/20 Plan of Care End Date 07/09/20 Therapeutic Interventions Therapeutic Interventions Balance Training,Canalithic Repositioning,Gait Training, Home Exercise Program,Joint Mobilizations,Manual Therapy, Neuromuscular Re-education, Patient/Caregiver Education, Self-Care/Home Management,Soft Tissue Mobilization,Taping, Therapeutic Activities, Therapeutic Exercises Modalities Cold Pack/Ice Massage,Electric Stimulation,Hot Packs, Ultrasound Next Visit Focus/Plan Next Note Type Treatment Note Next Visit Plan Consider Trauma Release exercises, PNF and ongoing manual work
--- NOTE | 2020-06-08 08:55 | PT.OTN ---
Current Diagnoses Unilateral primary osteoarthritis, right knee (06/08/20) Encounter for other orthopedic aftercare (06/08/20) Physical Therapy Treatment Note PT-OP-A Visit Information Start: 03/08/20 14:41 Freq: Status: Active Protocol: Document 06/08/20 08:15 MB (Rec: 06/08/20 08:44 MB [id number]) Out-Patient Physical Therapy Visit Information Visit Information Visit Type Treatment Note Visit Start Time 08:15 Visit Stop Time 08:45 Total Visit Minutes 30 Visit Number 33 PT-OP-B Current Condition Start: 03/08/20 14:41 Freq: Status: Active Protocol: Document 03/13/20 09:00 MB (Rec: 03/13/20 09:12 MB [id number]) Current Condition History of Current Condition Onset Date 03/07/20 Current Complaints Right knee pain and weakness History of Current Condition Pt is s/p right TKR 03/07/20. Pt has a history of B knee OA, left thumb arthritis, neck arthritis and back arthritis and injections in neck and back. Pt sees chiroprator 2x/ month and massage therapist 1x /month for her neck and back. She has also had work done on her TMJ. She has a thyroid issue. Pt is very active, rides horses and does agility with her dog. Pt reports 7-8/10 pain in her right knee, lateral and posterior leg. The greatest pain is in her groin. She is wearing compression. Prior Treatments and Tests R TKR, back and neck injections, PT in the past. She had a good experience with PT in the past. Treatment Goals Patient/Caregiver Goals I want to get back to riding and pickle ball. PT-OP-C Subjective Start: 03/08/20 14:41 Freq: Status: Active Protocol: Document 06/08/20 08:15 MB (Rec: 06/08/20 08:44 MB [id number]) OP-PT Subjective Patient Comments Patient Comments I think I'm doing well. Pt states that she did a virtual Y class yesterday that had lunges and squats and she had fine. She tripped in agility training with her dog and she is okay. PT-OP-G Mobility & Gait Start: 03/08/20 14:41 Freq: Status: Active Protocol: Document 03/13/20 09:00 MB (Rec: 03/13/20 13:40 MB [id number]) OP Mobility Evaluation Bed Mobility Rolling Pt uses left leg to lift her right leg onto the mat with left toes and forefoot hooked around the back of right distal leg Transfers Sit to Stand Right leg out in front and heavy UE use OP Gait Assessment Gait Gait Assistance Required: Independent Distance (Feet) 75 Able to Maintain Weight Bearing Status Yes During Gait Assistive Devices Assistive Device Front Wheeled Walker Orthotic/Prosthetic Devices or Brace: Yes Gait Deviations General Gait Pattern Antalgic,Decreased Stride Length,Decreased Feet Clearance,Flexed Trunk Factors Limiting Gait Function Factors Limiting Gait Function Decreased Activity Tolerance, Decreased Strength,Limited Range of Motion,Pain Comments Gait Comments Pt's walker is too short for her upon arrival and PT raises it 2 and she is able to gait train better upright. Initially, she has antalgic gait with little heel strike, push off on toes and right knee flexion and hip flexion and extension on the RLE. After gentle manual work after assessment, pt's step-length, upright and heel strike is better. PT-OP-K Range of Motion Start: 03/08/20 14:41 Freq: Status: Active Protocol: Document 03/13/20 09:00 MB (Rec: 03/13/20 13:40 MB [id number]) Knee Goniometric Range of Motion Knee Left Knee ROM WFL Yes Right Knee ROM WFL No Patient Position Long sitting Flexion Active (degrees) 70 Extension Active (degrees) 8 PT-OP-M Strength Start: 03/08/20 14:41 Freq: Status: Active Protocol: Document 03/13/20 09:00 MB (Rec: 03/13/20 13:40 MB [id number]) Hip Strength Hip Manual Muscle Testing Left Flexion (L2) 5 Normal Abduction 5 Normal Right Comments Deferred hip and knee MMT d/t pt reports of high pain Knee Strength Knee Manual Muscle Testing Left Flexion (S2) 5 Normal Extension (L3) 5 Normal Right Comments MMT deferred d/t high pain at rest and with limited AROM Ankle/Foot Strength Ankle and Foot Manual Muscle Testing Left Dorsiflexion (L4) 5 Normal Inversion 5 Normal Eversion (S1) 5 Normal Right Dorsiflexion (L4) 5 Normal Inversion 5 Normal Eversion (S1) 5 Normal Toe Strength Toe Manual Muscle Testing Left Great Toe Extension 5 Normal Right Great Toe Extension 5 Normal PT-OP-Q Treatments Start: 03/08/20 14:41 Freq: Status: Active Protocol: Document 06/08/20 08:15 MB (Rec: 06/08/20 08:44 MB [id number]) Cardio Equipment Bicycle (Upright) Duration (Minutes) 11 Resistance 10 Seat Position 4 Therapeutic Exercises Sitting Exercises Sit to stands without UE support Comments 24 reps in 30 sec Other Exercises Revised HEP Comments Verbally reviewed what she is doing for HEP Gait Training Gait Activity Stair exercises and training Comments 4 steps ascend and descend x2 without rail and pt meets goal Gait with different AD Comments 1944 feet in 6 minutes with improved gait pattern, step length, exceeds goal PT-OP-R Modalities Start: 03/08/20 14:41 Freq: Status: Active Protocol: Document 05/04/20 13:41 MA (Rec: 05/04/20 13:42 MA [id number]) Hot Pack/Cold Pack Treatment CP Location knee A/P Patient Position Sitting Treatment Duration (minutes) 10 Patient Tolerance Good Comments Long sitting to stretch knee into extension while icing PT-OP-T Assessment and Plan Start: 03/08/20 14:41 Freq: Status: Active Protocol: Document 06/08/20 08:15 MB (Rec: 06/08/20 08:44 MB [id number]) Physical Therapy Assessment Goals 6 Insurance Adviser Goal (LTG) Pt will present with improved right knee AROM equal to the left to improve sit to stands and gait pattern by 07/08/2020. 06/08/20: Pt presents with ROM left knee 5-107 deg today, which measures less than function LTG Duration Progressed towards goals 5 Insurance Adviser Goal (LTG) Pt will perform at least 20 reps of sit to stands without UE support in 30 sec to reflect improved functional transfers and strength by . 06/08/20: Pt performs 24 reps in 30 sec LTG Duration Exceeds goal 4 Insurance Adviser Goal (LTG) Pt will perform progressive HEP with I including range of motion, strengthening, flexibility, balance and gait exercises to improve overall functional strength by 2020. 06/08/20: Pt is going to the , riding a recumbent bike, doing virtural classes, doing horseback riding and agility with her dog LTG Duration Met 3 Skilled Nursing Goal (LTG) Pt will ascend and descend 3 steps with receiprocal gait and no AD or rail to allow safe home entrance and exit by 06/18/2020. 06/08/20: Pt gait trains up and down 4 steps x2 without rail and with reciprocal gait LTG Duration Met 2 Insurance Adviser Goal (LTG) Pt will gait train at least 1800 feet without AD in 6 minutes to improve ambulation for pasture and farm tasks by 06/18/2020. 06/08/20: Pt gait trains 1944 feet in 6 minutes, good sabrina LTG Duration Exceeds goal 1 Skilled Nursing Goal (LTG) Pt will present with an improved LEF score to reflect no more than 20% impairment to prepare to return to horse and dog ownership tasks by 07/08. 06/08/20: LEF score is much improved and reflects 22.5% impairment LTG Duration Progressed towards goal Assessment Summary Assessment Pt has exceeded gait distance and sit to stand goals. She has met HEP and stair training goals. She is only 2.5% off her LEF goal and her right knee ROM is improved and functional. She is ready to d/ c PT. Will d/c PT today. Physical Therapy Plan Discharge Physical Therapy Discharge Reasons Goals Met
== END 2020-06-12 08:41 | disposition home or self-care (01) ==
LOC: PHYS 08:15
PROVIDERS: PCP Internal Medicine; Referring Provider Orthopaedic Surgery; Visit Provider Orthopaedic Surgery
DX: M17.11 Unilateral primary osteoarthritis, right knee (principal); Z47.89 Encounter for other orthopedic aftercare
CPT/HCPCS: 97010; 97110; 97112; 97116; 97140; 97161; 97535

== ENCOUNTER → 2020-12-21 07:00 | Outpatient (CLI) | payer MEDICARE, SELFPAY ==
[2020-12-21 09:36] LABS: Free T4, Direct Thyroxine 1.16 ng/dL (0.78-2.19)
[2020-12-21 09:38] LABS: BUN Creatinine Ratio 31.1 (6-22); Blood Urea Nitrogen 23 mg/dL (7-17); Carbon Dioxide 28 mmol/L (22-32); Chloride 105 mmol/L (98-107); Estimated Glomerular Filt Rate > 60.0 mL/min (>60); Glucose 100 mg/dL (80-110); HEMOLYSIS < 15 (0-50); Potassium 4.3 mmol/L (3.4-5.1); Sodium 138 mmol/L (137-145)
[2020-12-21 09:50] LABS: Thyroid Stimulating Hormone 0.392 uIU/mL (0.47-4.68)
== END ==
PROVIDERS: PCP Internal Medicine; Referring Provider Internal Medicine; Visit Provider Internal Medicine
DX: E03.9 Hypothyroidism, unspecified (principal); M89.49 Other hypertrophic osteoarthropathy, multiple sites
CPT/HCPCS: 36415; 80048; 84439; 84443

== ENCOUNTER → 2020-12-27 14:41 | Outpatient (CLI) | payer MEDICARE, SELFPAY ==
--- NOTE | 2020-12-27 14:43 | DI.RAD.S_ITS ---
PROCEDURE: XR HIP W PEL IF DONE LT 2V INDICATIONS: evaluate left hip pain TECHNIQUE: AP pelvis with lateral view(s) of the left hip(s). COMPARISON: None. FINDINGS: Bones: No fractures or dislocations. Left hip joint osteoarthritic changes are seen with joint space narrowing and subchondral sclerosis. No evidence of avascular necrosis of femoral head. Pelvic ring appears intact. No suspicious bony lesions. Soft tissues: The visualized bowel gas pattern is normal. No suspicious soft tissue calcifications. IMPRESSION: Mild to moderate left hip joint osteoarthritis. No fracture or dislocation. No evidence of avascular necrosis. Dictated by: Kp Perkins M.D. on 12/27/2020 at 16:39 Approved by: Kp Perkins M.D. on 12/27/2020 at 16:39
== END ==
PROVIDERS: PCP Internal Medicine; Referring Provider Family Medicine; Visit Provider Family Medicine
DX: M25.552 Pain in left hip (principal); M16.12 Unilateral primary osteoarthritis, left hip
CPT/HCPCS: 73502

== ENCOUNTER → 2021-03-20 09:22 | Outpatient (CLI) | payer MEDICARE, SELFPAY ==
[2021-03-20 12:02] LABS: COVID19 -Nasal RAPID Negative (Negative)
== END ==
PROVIDERS: PCP Internal Medicine; Referring Provider Surgery; Visit Provider Surgery
DX: Z01.812 Encounter for preprocedural laboratory examination (principal); Z20.822 Contact with and (suspected) exposure to COVID-19
CPT/HCPCS: 87635; C9803

== ENCOUNTER 2021-03-21 09:15 | Day surgery (SDC) | payer MEDICARE, SELFPAY ==
[2021-03-21 09:40] VITALS: BP 140/72; PULSE 77; RESP 16; TEMP 37.4; O2SAT 98; BMI 24.7
[2021-03-21] MEDS: LACTATED RINGERS 1,000 ML 42 ML IV (10:01)
--- NOTE | 2021-03-21 11:38 | PM.HP.1 ---
History of Present Illness History of Present Illness Date Patient Seen: 03/21/21 Time Patient Seen: 11:38 Chief complaint: SCREENING COLONOSCOPY Narrative: Viki is a 71-year-old woman had a partial colonoscopy 10 years ago. She was told that she had a ?kink? in her colon and she needed a barium enema following. Patient History Medical History (Updated 03/21/21 @ 11:39 by Mushtaq Ayoub MD) Acquired hypothyroidism Chronic GERD Primary osteoarthritis involving multiple joints Surgical History S/P total knee arthroplasty Status post dilation and curettage Status post knee surgery Family & Social History Family History Father Diabetes mellitus Mental health problem Mother Hypertension High cholesterol Sister Age: 72 High cholesterol Social History: household members spouse Tobacco & Substance use: Tobacco type cigarettes Smoking Status Former smoker alcohol intake current alcohol intake frequency 0-2 drinks per day Substance Use Type does not use Meds Home Medications and Allergies Home Medications Medication Instructions Recorded Confirmed Type VITAMIN E (#CENTRUM 400 iu PO Q DAY #0 06/10/11 03/21/21 History SINGLES-VITAMIN E) Calcium Carbonate/Vitamin D 1 cap PO Q DAY #0 06/23/11 03/21/21 History (#CALCIUM) VITAMIN D 400 iu PO Q DAY #0 06/23/11 03/21/21 History aspirin 81 mg tablet,delayed 81 mg PO QDAY #30 tab 10/19/15 03/21/21 History release cyanocobalamin (vitamin B-12) 500 500 mcg PO QDAY #0 tab 10/19/15 03/21/21 History mcg tablet (Vitamin B-12) melatonin 5 mg capsule mg PO .HS cap 07/28/17 01/07/21 History multivitamin 1 tab PO DAILY 07/28/17 03/21/21 History cetirizine 10 mg tablet (Zyrtec) 5 mg PO DAILY 02/01/19 03/21/21 History mometasone 50 mcg/actuation nasal 1 spray INTRANASAL Q DAY PRN #17 gm 02/01/19 03/21/21 History spray (Nasonex) acyclovir 400 mg tablet See Rx Instructions .ROUTE 05/29/20 03/21/21 Rx .COMPLEX #90 tab conjugated estrogens 0.3 mg tablet See Rx Instructions .ROUTE 05/29/20 03/21/21 Rx (Premarin) .COMPLEX #90 tab medroxyprogesterone 2.5 mg tablet See Rx Instructions .ROUTE 05/29/20 03/21/21 Rx .COMPLEX #90 tab levothyroxine 125 mcg tablet 125 mcg PO DAILY #90 tab 10/24/20 03/21/21 Rx (Synthroid) Allergies Allergy/AdvReac Type Severity Reaction Status Date / Time No Known Drug Allergies Allergy Verified 03/21/21 09:17 Exam Vital Signs (past 8 hours): - 03/21/21 09:40 Temperature 99.3 F Pulse Rate 77 Respiratory Rate 16 Blood Pressure 140/72 Pulse Oximetry 98 Oxygen Delivery Method Room Air Const General: healthy appearing Resp Effort & Inspection: normal respiratory effort GI Palpation: soft Assessment & Plan Assessment and plan (1) Colon cancer screening: Status: Acute Plan 71-year-old woman in need of colon cancer screening. We reviewed the risks and benefits of colonoscopy. She would like to proceed. The procedure is necessary to screen for colon cancer, the diagnosis of which, if delayed, would lead to a worse outcome or . COVID-19 COVID-19 status: Negative Result date/Date tested (Pos, Neg/Pending): 03/20/21 Time Spent With Patient Critical Care time: I spent a total of [] minutes of critical care time on this patient's care today; this time is exclusive of procedural time.
[2021-03-21] MEDS: fentaNYL 250 MCG/5 ML INJ IV (11:55)
[2021-03-21] MEDS: MIDAZOLAM 5 MG/5 ML VIAL IV (11:55)
--- NOTE | 2021-03-21 12:09 | PM.OP.COLON ---
Operative Date/Time/Diagnoses Date of procedure: 03/21/21 Time of procedure: 12:09 Pre-op diagnosis: Colon cancer screening Post-op diagnosis: same Procedure & Clinicians Study performed: Colonoscopy Same procedure as scheduled: Yes Indications: Colon cancer screening Surgeon: Mushtaq Ayoub Procedure Notes SCOAP/Timeout: Yes Procedure in detail: Procedure: The patient was brought to the endoscopy suite, placed in left lateral decubitus position. The patient was connected to monitoring devices. A time-out was performed. Sedation was administered. Once the patient was adequately sedated, a digital rectal exam was performed and was normal. The scope was then inserted and advanced to the cecum where the appendiceal orifice was identified and photographed. The scope was then slowly withdrawn over greater than 6 minutes. Mucosa was thoroughly inspected. There were no lesions noted. The scope was retroflexed in the rectum. There are no lesions other than some internal hemorrhoids. The scope was straightened and removed. The patient was awakened and brought to recovery. Versed: 7 mg Fentanyl: 175 mcg EBL: 0 Findings: No polyps Scope withdrawal time: 8 Sedation minutes: 23 Post-procedure Recommendations: Colonoscopy in 10 years Disposition: PACU
[2021-03-21 12:13] VITALS: BP 117/66; PULSE 82; RESP 15; TEMP 35.8; O2SAT 97
[2021-03-21 12:17] VITALS: BP 101/72; PULSE 77; RESP 16; O2SAT 97
[2021-03-21 12:22] VITALS: BP 105/65; PULSE 82; RESP 15; O2SAT 96
[2021-03-21 12:27] VITALS: BP 111/55; PULSE 68; RESP 17; TEMP 35.9; O2SAT 98
[2021-03-21 12:33] VITALS: BP 118/60; PULSE 75; RESP 16; O2SAT 98
== END 2021-03-21 13:00 | disposition home or self-care (01) ==
PROVIDERS: PCP Internal Medicine; Referring Provider Surgery; Visit Provider Surgery
PROC: 0DJD8ZZ Inspection of Lower Intestinal Tract, Via Natural or Artificial Opening Endoscopic (ICD-10-PCS; CPT 45378; principal; 2021-03-21 10:45)
DX: Z12.11 Encounter for screening for malignant neoplasm of colon (principal); E03.9 Hypothyroidism, unspecified; K21.9 Gastro-esophageal reflux disease without esophagitis; K64.8 Other hemorrhoids
CPT/HCPCS: G0121; 99152; J2250; J3010

== ENCOUNTER → 2021-05-10 12:48 | Outpatient (CLI) | payer MEDICARE, SELFPAY ==
--- NOTE | 2021-05-10 12:49 | DI.US.S_ITS ---
PROCEDURE: US BREAST LT LIMITED COMPARISON: [facility], RG, US LEFT BREAST, 10/05/2020, 9:34. [facility], MG, MM DIAGNOSTIC MAMMO UNILAT LT, 05/10/2021, 13:07. INDICATIONS: 6mo f/u L Breast FINDINGS: IMPRESSION: Measuring 5 x 3 x 4 mm. Likely complicated cyst mammographic appearance is unchanged. This finding is oval with posterior acoustic enhancement. At the time of annual bilateral screening mammogram Dictated by: Jason Martinez M.D. on 05/10/2021 at 16:17 Approved by: Jason Martinez M.D. on 05/10/2021 at 16:22
--- NOTE | 2021-05-10 12:49 | DI.MG.S_ITS ---
UNILATERAL LEFT DIGITAL DIAGNOSTIC MAMMOGRAM 3D/2D SHORT-TERM FOLLOW-UP: 05/10/2021 CLINICAL: Short term follow up for the left breast. Comparison is made to exams dated: 09/26/2020 mammogram, 12/31/2018 mammogram, and 12/28/2017 mammogram - out side. There are scattered fibroglandular elements in left breast. There is a stable 0.4 cm oval asymmetry in the left breast middle depth medial region seen on the craniocaudal view only 9 cm from the nipple. This is seen in additional views. No other significant masses or calcifications are seen in the breast. IMPRESSION: INCOMPLETE: NEEDS ADDITIONAL IMAGING EVALUATION The stable 0.4 cm oval asymmetry in the left breast is indeterminate. An ultrasound is recommended. This exam was interpreted at Station ID: [id number]. NOTE: For mammograms, a report in lay terms will be sent to the patient. Approximately 15% of breast malignancies will not be visualized mammographically. In the management of a palpable breast mass, a negative mammogram must not discourage biopsy of a clinically suspicious lesion. Electronically Signed By: Jason Martinez acr/:05/10/2021 13:31:40 ACR BI-RADS Category 0: Incomplete [id number]
== END ==
PROVIDERS: PCP Internal Medicine; Referring Provider Specialist; Visit Provider Specialist
DX: N64.89 Other specified disorders of breast (principal); R92.8 Other abnormal and inconclusive findings on diagnostic imaging of breast
CPT/HCPCS: 76642; 77065; G0279

== ENCOUNTER → 2022-01-07 08:04 | Outpatient (CLI) | payer MEDICARE, SELFPAY ==
[2022-01-07 09:34] LABS: Alanine Aminotransferase 21 IU/L (<35); Albumin Globulin Ratio 1.5 (1.0-2.8); Alkaline Phosphatase 64 U/L (38-126); Aspartate Aminotransferase 25 IU/L (14-36); BUN Creatinine Ratio 16.5 (6-22); Bilirubin Total 0.7 mg/dL (0.2-1.3); Blood Urea Nitrogen 13 mg/dL (7-17); Calcium 8.7 mg/dL (8.4-10.2); Carbon Dioxide 26 mmol/L (22-32); Chloride 105 mmol/L (98-107); Estimated Glomerular Filt Rate > 60 mL/min (>60); Globulin 2.7 g/dL (1.7-4.1); Glucose 97 mg/dL (80-110); HEMOLYSIS < 15 (0-50); Potassium 4.3 mmol/L (3.4-5.1); Sodium 138 mmol/L (137-145); Total Protein 6.7 g/dL (6.3-8.2)
[2022-01-07 09:53] LABS: Thyroid Stimulating Hormone 0.199 uIU/mL (0.47-4.68)
[2022-01-07 11:21] LABS: Free T4, Direct Thyroxine 1.35 ng/dL (0.78-2.19)
== END ==
PROVIDERS: PCP Internal Medicine; Referring Provider Internal Medicine; Visit Provider Internal Medicine
DX: E03.9 Hypothyroidism, unspecified (principal); Z13.1 Encounter for screening for diabetes mellitus; Z79.899 Other long term (current) drug therapy
CPT/HCPCS: 36415; 80053; 84439; 84443

== ENCOUNTER → 2022-05-02 10:25 | Outpatient (CLI) | payer MEDICARE, SELFPAY ==
--- NOTE | 2022-05-02 10:28 | DI.MG.S_ITS ---
BILATERAL DIGITAL DIAGNOSTIC MAMMOGRAM 3D/2D: 05/02/2022 CLINICAL: Patient returns for a late 6 month follow up of the left breast. Due for Bilateral routine. Comparison is made to exams dated: 05/10/2021 mammogram - [facility], 09/26/2020 mammogram, 12/31/2018 mammogram, 12/28/2017 mammogram - out side, and 12/03/2015 mammogram - [facility]. There are scattered areas of fibroglandular density in both breasts (category b / 25%-50% glandular tissue). There are stable benign grouped punctate calcifications in the right breast at 11 o'clock posterior depth. There is a stable asymmetry in the left breast middle depth medial region seen on the craniocaudal view only. No other significant masses or calcifications are seen in either breast. IMPRESSION: INCOMPLETE: NEEDS ADDITIONAL IMAGING EVALUATION The stable asymmetry in the left breast is indeterminate. A targeted ultrasound is recommended and will immediately follow. Based on the Tyrer Cuzick model (a risk assessment model) the patient's lifetime risk is 12.8% and her 10 year risk is 8.2%. According to the ACR, ACS, and NCCN guidelines, an annual breast MRI exam along with mammogram is recommended if the patient's lifetime risk is 20% or greater. This exam was interpreted at Station ID: [id number]. NOTE: For mammograms, a report in lay terms will be sent to the patient. Approximately 15% of breast malignancies will not be visualized mammographically. In the management of a palpable breast mass, a negative mammogram must not discourage biopsy of a clinically suspicious lesion. Electronically Signed By: Joseph Reeves M.D. [facility] [place]/:05/02/2022 11:17:16 ACR BI-RADS Category 0: Incomplete [id number]
--- NOTE | 2022-05-02 10:28 | DI.US.S_ITS ---
LIMITED ULTRASOUND OF LEFT BREAST: 05/02/2022 CLINICAL: Late 6 month follow up. Comparison is made to exams dated: 05/02/2022 mammogram, 05/10/2021 ultrasound, 05/10/2021 mammogram - [facility], and 10/05/2020 ultrasound. Color flow and real-time ultrasound of the left breast 9 o'clock region were performed. Mcneil scale images of the real-time examination were reviewed. There is a 0.4 cm x 0.3 cm x 0.3 cm complicated cyst in the left breast at 9 o'clock posterior depth 7 cm from the nipple. This abnormality is not significantly changed. IMPRESSION: PROBABLY BENIGN The 0.4 cm complicated cyst in the left breast is probably benign. A follow-up mammogram and an ultrasound in 12 months is recommended to demonstrate long-term stability. Patient will be due for right breast mammogram at that time. Exam findings were conveyed to the patient. This exam was interpreted at Station ID: [id number]. Electronically Signed By: Joseph Reeves M.D. slc/:05/02/2022 11:41:51 letter sent: Followup Recommended Ultrasound BI-RADS: 3 Probably benign
== END ==
PROVIDERS: PCP Internal Medicine; Referring Provider Internal Medicine; Visit Provider Internal Medicine
DX: R92.8 Other abnormal and inconclusive findings on diagnostic imaging of breast (principal); N60.02 Solitary cyst of left breast
CPT/HCPCS: 76642; 77066; G0279

== ENCOUNTER → 2023-04-06 16:25 | Outpatient (CLI) | payer MEDICARE, SELFPAY ==
[2023-04-06 18:29] LABS: Free T4, Direct Thyroxine 1.45 ng/dL (0.78-2.19)
[2023-04-06 18:43] LABS: Thyroid Stimulating Hormone 0.114 uIU/mL (0.47-4.68)
== END ==
PROVIDERS: PCP Internal Medicine; Referring Provider Internal Medicine; Visit Provider Internal Medicine
DX: E03.9 Hypothyroidism, unspecified (principal)
CPT/HCPCS: 36415; 84439; 84443

== ENCOUNTER → 2023-04-13 14:25 | Outpatient (CLI) | payer MEDICARE, SELFPAY ==
--- NOTE | 2023-04-13 14:25 | DI.RAD.S_ITS ---
Bone Density Report Name: SHANEL HOOKS Age: 73 Sex: Female Ethnicity: White Date of : 1950 Indication: postmenopausal; screening for osteoporosis; Referring Provider: PANCHO SCOTT Study: Bone densitometry was performed. Exam Date: April 13, 2023 Accession number: [id number] Bone Density: Region BMD T-score Z-score Classification AP Spine(L1-L4) 1.343 2.7 4.9 Normal Femoral Neck (Left) 0.824 -0.2 1.6 Normal Total Hip (Left) 0.966 0.2 1.8 Normal Femoral Neck (Right) 0.819 -0.3 1.6 Normal Total Hip (Right) 0.943 0.0 1.6 Normal Total Hip Mean 0.954 0.1 1.7 Normal World Health Organization criteria for BMD impression classify patients as: Normal (T-score at or above -1.0), Osteopenia (T-score between -1.0 and -2.5), or Osteoporosis (T-score at or below -2.5). 10-year Fracture Risk: FRAX not reported because: All T-scores for Spine Total, Hip Total, Femoral Neck at or above -1.0 Previous Exams: -- Region Exam Age BMD T-score BMD Change BMD Change Date g/cm2 vs Baseline vs Previous -- AP Spine (L1-L4) 04/13/2023 73 1.343 2.7 -0.102 (-7.1%)# -0.102 (-7.1%)# 12/06/2015 65 1.444 3.6 Total Hip(Left) 04/13/2023 73 0.966 0.2 -0.029 (-2.9%)# -0.029 (-2.9%)# 12/06/2015 65 0.994 0.4 Total Hip(Right) 04/13/2023 73 0.943 0.0 -0.060 (-6.0%)# -0.060 (-6.0%)# 12/06/2015 65 1.004 0.5 -- *Denotes significance at 95% confidence level, LSC for AP Spine = 0.022 g/cm2, LSC for Total Hip = 0.027 g/cm2 # Denotes dissimilar scan types or analysis methods Impression: The patient has normal bone mass. No significant bone loss was observed. Discussion: BONE DENSITY IS ABOVE THE MINIMUM DESIRABLE LEVEL AT ALL SKELETAL SITES TESTED. This patient's bone mineral density is above the minimum desirable level (T-score -1.0 or better) at all sites measured. The patient should follow a healthful lifestyle (good nutrition with adequate calcium and vitamin D, and appropriate weight-bearing exercise). Follow-Up: Consider repeating this study in 5 years or sooner if there is some new clinical indication. Reported by: FUENTES LOMBARDO M.D. on 04/13/2023 3:06:00 PM.
== END ==
PROVIDERS: PCP Internal Medicine; Referring Provider Internal Medicine; Visit Provider Internal Medicine
DX: M85.89 Other specified disorders of bone density and structure, multiple sites (principal)
CPT/HCPCS: 77080

== ENCOUNTER → 2023-05-26 08:46 | Outpatient (CLI) | payer MEDICARE, SELFPAY ==
--- NOTE | 2023-05-26 | DI.US.S_ITS ---
ULTRASOUND OF RIGHT BREAST: 05/26/2023 CLINICAL: Patient returns today to evaluate a focal asymmetry in the right breast. Comparison is made to exams dated: 05/26/2023 mammogram, 05/02/2022 mammogram - [facility], 10/05/2020 ultrasound, 09/26/2020 mammogram, 12/31/2018 mammogram, and 12/28/2017 mammogram - out side. Color flow and real-time ultrasound of the right breast were performed. Mcneil scale images of the real-time examination were reviewed. There is a 0.7 cm x 0.4 cm x 0.7 cm wider than tall oval cyst with smooth septated internal mustafa in the right breast at 11 o'clock posterior depth 9 cm from the nipple. This oval cyst is hypoechoic with a well-defined boundary and no posterior acoustic shadowing or enhancement. This possiblyi correlates with mammography findings. Color flow imaging demonstrates that there is no vascularity present. IMPRESSION: PROBABLY BENIGN The 0.7 cm x 0.4 cm x 0.7 cm wider than tall oval cyst in the right breast is consistent with a complicated cyst and is probably benign. No sonographic evidence for associated calcifications as suggested on mammogram. A follow-up right mammogram and an ultrasound in 6 months is recommended to demonstrate stability. Additionally, the patient will be returning as soon as possible to re-evaluate the probably benign complicated cyst in the left breast which could not be examined today secondary to scheduling conflicts. Findings and recommendations were conveyed to the patient during today's evaluation. This exam was interpreted at Station ID: [id number]. Electronically Signed By: Kai Whitlock M.D. at/:05/26/2023 21:59:28 letter sent: Followup Recommended Ultrasound BI-RADS: 3 Probably benign
--- NOTE | 2023-05-26 08:47 | DI.MG.S_ITS ---
BILATERAL DIGITAL DIAGNOSTIC MAMMOGRAM 3D/2D SHORT-TERM FOLLOW-UP: 05/26/2023 CLINICAL: 12 month stability check per prior study. Comparison is made to exams dated: 05/02/2022 mammogram, 05/10/2021 mammogram - , 09/26/2020 mammogram, and 12/31/2018 mammogram - out side. There are scattered areas of fibroglandular density in both breasts (category b / 25%-50% glandular tissue). The previously described grouped fine punctate calcifications in the right breast at 11 o'clock posterior depth are not significantly changed; however, there appears to be a possible associated focal asymmetry that is more prominent compared to previous study. Redemonstration of previously described asymmetry in the left breast middle depth medial region seen on the craniocaudal view only. This is less prominent. No other significant masses or calcifications are seen in either breast. IMPRESSION: INCOMPLETE: NEEDS ADDITIONAL IMAGING EVALUATION The grouped fine punctate calcifications in the right breast at 11 o'clock posterior depth with possible associated focal asymmetry are indeterminate. An ultrasound is recommended for further evaluation and is scheduled to immediately follow this examination. The asymmetry in the left breast middle depth medial region seen on the craniocaudal view only is less prominent and resembles a cyst. It correlated with a probably benign complicated cyst on previous ultrasound but remains indeterminate. An ultrasound is recommended to verify stablity; however, this was not able to be accommodated and the patient will be rescheduled to return for evaluation of the left breast. Based on the Tyrer Cuzick model (a risk assessment model) the patient's lifetime risk is 12.2% and her 10 year risk is 8.4%. According to the ACR, ACS, and NCCN guidelines, an annual breast MRI exam along with mammogram is recommended if the patient's lifetime risk is 20% or greater. This exam was interpreted at Station ID: [id number]. NOTE: For mammograms, a report in lay terms will be sent to the patient. Approximately 15% of breast malignancies will not be visualized mammographically. In the management of a palpable breast mass, a negative mammogram must not discourage biopsy of a clinically suspicious lesion. Electronically Signed By: Kai Whitlock M.D. aty/:05/26/2023 21:52:56 ACR BI-RADS Category 0: Incomplete 3340F
== END ==
PROVIDERS: PCP Internal Medicine; Referring Provider Internal Medicine; Visit Provider Internal Medicine
DX: R92.8 Other abnormal and inconclusive findings on diagnostic imaging of breast (principal); R92.1 Mammographic calcification found on diagnostic imaging of breast; N60.01 Solitary cyst of right breast; N60.02 Solitary cyst of left breast; R92.323 Mammographic fibroglandular density, bilateral breasts
CPT/HCPCS: 76642; 77066; G0279

== ENCOUNTER → 2023-06-01 08:44 | Outpatient (CLI) | payer MEDICARE, SELFPAY ==
--- NOTE | 2023-06-01 08:45 | DI.US.S_ITS ---
LIMITED ULTRASOUND OF LEFT BREAST: 06/01/2023 CLINICAL: Patient returns today to evaluate a focal asymmetry in the left breast. Comparison is made to exams dated: 05/26/2023 ultrasound, 05/26/2023 mammogram, 05/02/2022 ultrasound, 05/02/2022 mammogram, 05/10/[address] [facility], and 10/05/2020 ultrasound. Color flow and real-time ultrasound of the left breast 9 o'clock region were performed. Mcneil scale images of the real-time examination were reviewed. There is a stable benign 0.4 cm x 0.3 cm x 0.3 cm oval complicated cyst with a smooth internal wall in the left breast at 9 o'clock posterior depth 7 cm from the nipple. This oval complicated cyst is anechoic. Color flow imaging demonstrates that there is no vascularity present. This lesion has not significantly changed when compared to multiple prior exams dating back to 05/10/2021, and is therefore considered benign. IMPRESSION: BENIGN There is no sonographic evidence of malignancy. The stable 0.4 cm x 0.3 cm x 0.3 cm oval complicated cyst in the left breast is benign. Future imaging is recommended as follows: 11/25/2023 right mammogram and an ultrasound to follow up probably benign right breast findings described in the prior report. This exam was interpreted at Station ID: [id number]. Electronically Signed By: Jaime Allen M.D. ar/:06/01/2023 21:02:21 Ultrasound BI-RADS: 2 Benign
== END ==
PROVIDERS: PCP Internal Medicine; Referring Provider Internal Medicine; Visit Provider Internal Medicine
DX: R92.8 Other abnormal and inconclusive findings on diagnostic imaging of breast (principal); N60.02 Solitary cyst of left breast
CPT/HCPCS: 76642

== ENCOUNTER → 2023-12-07 08:34 | Outpatient (CLI) | payer MEDICARE, SELFPAY ==
--- NOTE | 2023-12-07 | DI.MG.S_ITS ---
UNILATERAL RIGHT DIGITAL DIAGNOSTIC MAMMOGRAM 3D/2D SHORT-TERM FOLLOW-UP: 12/07/2023 CLINICAL: Short term follow of the Right breast. Comparison is made to exams dated: 05/26/2023 ultrasound, 05/26/2023 mammogram, 05/02/2022 mammogram - [facility], and 09/26/2020 mammogram - out side. There are scattered areas of fibroglandular density (category b / 25%-50% glandular tissue). There are grouped fine punctate calcifications in the right breast at 11 o'clock posterior depth. These are not significantly changed and was not seen on the prior ultrasound. No other significant masses or calcifications are seen in the breast. IMPRESSION: PROBABLY BENIGN The grouped fine punctate calcifications in the right breast are probably benign. A follow-up bilateral mammogram in 6 months is recommended to demonstrate continued stability. Based on the Tyrer Cuzick model (a risk assessment model) the patient's lifetime risk is 12.2% and her 10 year risk is 8.4%. According to the ACR, ACS, and NCCN guidelines, an annual breast MRI exam along with mammogram is recommended if the patient's lifetime risk is 20% or greater. Findings and recommendations were conveyed to the patient during today's evaluation. This exam was interpreted at Station ID: [id number]. NOTE: For mammograms, a report in lay terms will be sent to the patient. Approximately 15% of breast malignancies will not be visualized mammographically. In the management of a palpable breast mass, a negative mammogram must not discourage biopsy of a clinically suspicious lesion. Electronically Signed By: Kai Whitlock M.D. aty/:12/07/2023 12:18:17 letter sent: Followup Recommended ACR BI-RADS Category 3: Probably Benign
--- NOTE | 2023-12-07 08:35 | DI.US.S_ITS ---
ULTRASOUND OF LEFT BREAST: 12/07/2023 CLINICAL: 6 month follow-up of mass. Comparison is made to exams dated: 06/01/2023 ultrasound, 05/26/2023 mammogram, 05/02/2022 ultrasound, and 05/02/2022 mammogram - [facility]. Color flow and real-time ultrasound of the left breast were performed. Mcneil scale images of the real-time examination were reviewed. There is a stable 0.4 cm x 0.5 cm x 0.3 cm oval complicated cyst with a smooth internal wall in the left breast at 9 o'clock posterior depth 7 cm from the nipple. This oval complicated cyst is anechoic. Color flow imaging demonstrates that there is no vascularity present. This lesion has not significantly changed when compared to multiple prior exams dating back to 05/10/2021, and is therefore considered benign. IMPRESSION: PROBABLY BENIGN There is no sonographic evidence of malignancy. The stable 0.4 cm x 0.5 cm x 0.3 cm oval complicated cyst in the left breast is benign. Recommend bilateral mammogram in approximately 6 months to document director long term care stability of probably benign grouped calcifications in the right breast. Findings and recommendations were conveyed to the patient during today's evaluation. This exam was interpreted at Station ID: [id number]. Electronically Signed By: Kai Whitlock M.D. aty/:12/14/2023 10:25:44 letter sent: Followup Recommended ACR BI-RADS Category 3: Probably Benign
== END ==
PROVIDERS: PCP Internal Medicine; Referring Provider Internal Medicine; Visit Provider Internal Medicine
DX: R92.8 Other abnormal and inconclusive findings on diagnostic imaging of breast (principal); R92.1 Mammographic calcification found on diagnostic imaging of breast; N60.02 Solitary cyst of left breast
CPT/HCPCS: 76642; 77065; G0279

== ENCOUNTER → 2024-04-14 06:45 | Outpatient (CLI) | payer MEDICARE, SELFPAY ==
[2024-04-14 08:37] LABS: Alanine Aminotransferase 25 IU/L (<35); Albumin 4.1 g/dL (3.5-5.0); Albumin Globulin Ratio 1.8 (1.0-2.8); Alkaline Phosphatase 51 U/L (38-126); Aspartate Aminotransferase 33 IU/L (14-36); BUN Creatinine Ratio 18.5 (6-22); Bilirubin Total 0.8 mg/dL (0.2-1.3); Blood Urea Nitrogen 15 mg/dL (7-17); Calcium 9.4 mg/dL (8.4-10.2); Carbon Dioxide 25 mmol/L (22-32); Chloride 107 mmol/L (98-107); Cholesterol 237 mg/dL (140-199); Estimated Glomerular Filt Rate > 60 mL/min (>60); Globulin 2.3 g/dL (1.7-4.1); Glucose 90 mg/dL (80-110); HEMOLYSIS < 15 (0-50); Potassium 4.2 mmol/L (3.4-5.1); Sodium 138 mmol/L (137-145); Total Protein 6.4 g/dL (6.3-8.2); Triglycerides 79 mg/dL (35-150)
[2024-04-14 08:41] LABS: Add Manual Diff / Slide Review NO; Basophils Absolute Auto 100 /uL (0-100); Eosinophils Absolute Auto 400 /uL (0-450); Eosinophils Percent Auto 6.9 % (2-4); Hematocrit 39.8 % (36-46); Lymphocytes Absolute Auto 2000 /uL (1100-4500); Lymphocytes Percent Auto 36.1 % (25-40); Mean Corpuscular HGB Conc 32.5 % (30-36); Mean Corpuscular Hemoglobin 29.5 PG (26-34); Mean Corpuscular Volume 90.8 fL (80-100); Monocytes Absolute Auto 600 /uL (0-900); Monocytes Percent Auto 11.2 % (3-14); Neutrophils Absolute Auto 2400 /uL (1500-7000); Neutrophils Percent Auto 43.8 % (50-75); Platelet Count 276 X10^3/uL (150-400); Red Blood Cell Count 4.39 X10^6/uL (4.0-5.2); Red Cell Distribution Width 14.1 % (11.6-14.8); White Blood Cell Count 5.6 X10^3/uL (4.5-11.0)
[2024-04-14 08:47] LABS: HDL Cholesterol 135 mg/dL (40-60); LDL Cholesterol Calculated 86 mg/dL (<100)
[2024-04-14 09:04] LABS: Thyroid Stimulating Hormone 1.56 uIU/mL (0.47-4.68)
[2024-04-14 09:34] LABS: Erythrocyte Sedimentation Rate 29 MM/HR (0-20)
== END ==
PROVIDERS: PCP Internal Medicine; Referring Provider Internal Medicine; Visit Provider Internal Medicine
DX: E03.9 Hypothyroidism, unspecified (principal); Z13.220 Encounter for screening for lipoid disorders; M35.3 Polymyalgia rheumatica; D64.9 Anemia, unspecified; Z13.6 Encounter for screening for cardiovascular disorders
CPT/HCPCS: 36415; 80053; 80061; 84439; 84443; 85025; 85651

== ENCOUNTER → 2024-07-19 13:27 | Outpatient (CLI) | payer MEDICARE, SELFPAY ==
--- NOTE | 2024-07-19 13:29 | DI.MG.S_ITS ---
MM diagnostic mammo BI: 07/19/2024. BI-RADS: 2 CLINICAL: 74-year old female for bilateral diagnostic mammogram that is a follow-up to diagnostic, right, digital, tomosynthesis, short-term follow-up on 12/07/2023. [facility]%. Current reported family history of breast cancer: mother. PRIOR EXAMS 12/07/2023, 06/01/2023, 05/26/2023, 05/02/2022, 05/10/2021, 12/03/2015, 11/20/2014. MAMMOGRAPHY TECHNIQUE: 2D and 3D (tomosynthesis) digital mammographic views obtained, with additional images as needed for full coverage. Current study was also evaluated with a Computer Aided Detection (CAD) system. DENSITY B. There are scattered areas of fibroglandular density. MAMMOGRAPHY FINDINGS Right: Upper at 11:00, Posterior depth: There are grouped punctate calcifications. This finding has been stable since April 2022 and consistent with a benign process. Left: CC only, Inner, Middle depth: There is an asymmetry present. This finding has been stable since April 2022 and is consistent with a benign process. IMPRESSION: * No evidence of malignancy with benign findings. RECOMMENDATIONS Bilateral * Annual screening mammography. COMMENTS: Findings and recommendations were conveyed to the patient during today's evaluation. OVERALL ASSESSMENT CATEGORY BI-RADS-2: Benign. The [employer] recommends annual screening mammography beginning at age 40 for women with average risk of breast cancer. ELECTRONICALLY SIGNED: Yaa Johnson M.D. on 07/19/2024 at 03:35:11 PM PT Interpreting Station ID: [id number]
== END ==
PROVIDERS: PCP Internal Medicine; Referring Provider Internal Medicine; Visit Provider Internal Medicine
DX: R92.8 Other abnormal and inconclusive findings on diagnostic imaging of breast (principal); Z80.3 Family history of malignant neoplasm of breast; R92.1 Mammographic calcification found on diagnostic imaging of breast
CPT/HCPCS: 77066; G0279

== ENCOUNTER → 2024-12-23 11:48 | Outpatient (CLI) | payer MEDICARE, SELFPAY ==
[2024-12-23 12:35] LABS: Alanine Aminotransferase 21 IU/L (<35); Albumin 4.3 g/dL (3.5-5.0); Albumin Globulin Ratio 1.7 (1.0-2.8); Alkaline Phosphatase 56 U/L (38-126); Blood Urea Nitrogen 15 mg/dL (7-17); Calcium 9.0 mg/dL (8.4-10.2); Carbon Dioxide 26 mmol/L (22-32); Chloride 105 mmol/L (98-107); Estimated Glomerular Filt Rate > 60 mL/min (>60); Globulin 2.6 g/dL (1.7-4.1); Glucose 107 mg/dL (70-99); HEMOLYSIS < 15 (0-50); Potassium 4.2 mmol/L (3.4-5.1); Sodium 137 mmol/L (137-145); Total Protein 6.9 g/dL (6.3-8.2)
[2024-12-23 12:50] LABS: Free T3, Triiodothyronine Free 3.08 pg/mL (2.77-5.27); Free T4, Direct Thyroxine 1.38 ng/dL (0.78-2.19)
[2024-12-23 13:04] LABS: Thyroid Stimulating Hormone 0.878 uIU/mL (0.47-4.68)
== END ==
PROVIDERS: PCP Internal Medicine; Referring Provider Internal Medicine; Visit Provider Internal Medicine
DX: E03.9 Hypothyroidism, unspecified (principal); I10 Essential (primary) hypertension
CPT/HCPCS: 36415; 80053; 84439; 84443; 84481